=== PATIENT | male | born 1940 | race Caucasian/White ===

== ENCOUNTER → 2020-02-14 12:00 | Outpatient (BNVA) | payer MEDICARE, SELFPAY | PROVIDERS: Visit Provider Specialist | DX: S82.402A Unspecified fracture of shaft of left fibula, initial encounter for closed fracture (principal) | CPT/HCPCS: 73590; 73610; L4361 ==

== ENCOUNTER 2020-02-14 13:05 | Outpatient (CLI) | payer MEDICARE, SELFPAY | END 2020-02-14 13:06 | disposition home or self-care (01) | LOC: SPT 13:06 | PROVIDERS: Visit Provider Specialist | DX: Z46.89 Encounter for fitting and adjustment of other specified devices (principal); S82.292D Other fracture of shaft of left tibia, subsequent encounter for closed fracture with routine healing; X58.XXXD Exposure to other specified factors, subsequent encounter | CPT/HCPCS: L4361 ==

== ENCOUNTER 2020-02-23 10:32 | Outpatient (CLI) | payer MEDICARE, SELFPAY ==
--- NOTE | 2020-02-23 10:41 | MR_ITS ---
WS: [id number] MRI LEFT ANKLE NONCONTRAST TECHNIQUE: Sagittal proton density, sagittal STIR, axial proton density, axial T1, axial T2 fat sat, coronal proton density, coronal proton density fat sat, coronal T2 fat sat. CLINICAL INFORMATION: left tibia shaft fracture COMPARISON: Radiograph February 14, 2020 FINDINGS: Cortical irregularity involving the distal tibia along the syndesmosis with callus formation along th e fibula seen on the recent radiograph. No significant abnormal bone marrow signal in this area on th e MRI. No significant edema along the syndesmosis. Radiographic findings likely due to prior healed t rauma Medial and lateral malleolus appear normal. No acute appearing avulsion fractures. Tiny amount of hamlet ma along the dorsal aspect medial malleolus. Small amount of cortical and subcortical edema along the posterior malleolus. Associated soft tissue edema. Findings consistent with bony contusion. No displ aced fractures. Normal talar dome. Calcaneus is normal. Normal talocalcaneal junction. Diffuse subcutaneous soft tissue edema. Fatty atrophy of the visualized musculature lower leg,ankle a nd hindfoot. Split tear involving the peroneus brevis. Small amount of tenosynovitis along the common peroneal tendon sheath. Small amount of tendinosis involving the distal Achilles. Plantar calcaneal spurring. Small amount of tenosynovitis along the tibialis posterior and flexor hallucis longus. Norm al extensor compartment tendons. Normal navicular. Normal cuneiforms. MR/MR ankle LT wo con* [id number] IMPRESSION: 1. No acute fractures. Small ankle effusion. 2. Cortical irregularity involving the distal tibia and adjacent fibula at the syndesmosis demonstrates no significant edema and is likely chronic. 3. Tiny amount of edema involving the posterior malleolus and undersurface of the dorsal medial malleolus likely due to contusion. 4. Diffuse soft tissue edema lower leg and ankle with diffuse fatty muscular a trophy. 5. Split tear involving the peroneus brevis. 6. Small amount of tendinosis in the distal Achilles. 7. Tenosynovitis involving the tibialis posterior and flexor hallucis longus. 8. Plantar calcaneal spurring.
== END 2020-02-23 10:33 | disposition home or self-care (01) ==
LOC: RADWPI 10:36
PROVIDERS: Visit Provider Specialist
DX: S82.202A Unspecified fracture of shaft of left tibia, initial encounter for closed fracture (principal); X58.XXXA Exposure to other specified factors, initial encounter; M25.472 Effusion, left ankle; R60.9 Edema, unspecified; M62.572 Muscle wasting and atrophy, not elsewhere classified, left ankle and foot; M76.62 Achilles tendinitis, left leg; M65.872 Other synovitis and tenosynovitis, left ankle and foot; M77.32 Calcaneal spur, left foot
CPT/HCPCS: 73721

== ENCOUNTER 2021-03-13 09:46 | Outpatient (CLI) | payer MEDICARE, SELFPAY ==
[2021-03-13 12:24] LABS: Basophils # 0.1 10^3/uL (0.0-0.1); Basophils % 0.8 %; Eosinophils # 0.2 10^3/uL (0.0-0.8); Eosinophils % 2.4 %; Hematocrit 34.3 % (42.0-52.0); Hemoglobin 11.4 g/dL (11.7-16.6); Lymphocytes # 2.4 10^3/uL (0.8-4.8); Lymphocytes % 31.3 %; Mean Corpuscular HGB Conc 33.2 g/dL (30.0-36.0); Mean Corpuscular Hemoglobin 32.9 pg (28.0-34.0); Mean Corpuscular Volume 99.1 fL (80-94); Mean Platelet Volume 10.2 fL (7.4-10.4); Monocytes # 0.9 10^3/uL (0.2-0.9); Monocytes % 11.9 %; Neutrophils # 3.87 10^3/uL (1.8-7.7); Neutrophils % 51.1 %; Nucleated Red Blood Cells % 0 %; Platelet Count 196 10^3/cmm (130-400); Red Blood Count 3.46 10^6/uL (4.1-5.3); Red Cell Distribution Width 14.6 % (12.1-15.1); White Blood Count 7.6 10^3/uL (4.0-10.0)
[2021-03-13 13:16] LABS: Erythrocyte Sedimentation Rate 108 mm/hr (0-10)
[2021-03-13 13:19] LABS: Slide Review Slide Review Perform
[2021-03-13 13:34] LABS: Alanine Aminotransferase 18 U/L (0-41); Albumin Level 4.1 g/dL (3.5-5.2); Alkaline Phosphatase 43 IU/L (40-130); Aspartate Amino Transferase 21 U/L (0-40); Blood Urea Nitrogen 23 mg/dL (8-23); Calcium 9.6 mg/dL (8.5-10.5); Carbon Dioxide 28 mmol/L (22-29); Chloride 101 mmol/L (98-107); Glucose 92 mg/dL (65-115); Osmolality Calculated 277 mOsm/kg (285-295); Sodium 132 mmol/L (136-145); Total Bilirubin 1.3 mg/dL (0.15-1.2)
[2021-03-13 13:42] LABS: Globulin 9.4 g/dL (1.3-4.6); Total Protein 13.5 g/dL (6.6-8.7)
--- NOTE | 2021-03-13 15:00 | ONC CON_ITS ---
Dr. Arrieta New Patient Note Patient: Jono Villanueva Unit #: [id number]: 1940 Dicatated By: Nolan Arrieta M.D.Date of Visit: March 13, 2021 Onc MED New Patient/Consult Referring Physician: Dr. Damian Gill M.D. Chief Complaint: Multiple myeloma. History of Present Illness: This is a 79-year-old man with lytic bone lesions and an associated M protein on serum protein electrophoresis, consistent with myeloma. He has been in good general health. He has really not had any ongoing medical illnesses. In January of this year he had suffered a traumatic left fibular shaft fracture, but that was able to be managed conservatively. On 02/19/2021 he was seen in the emergency room at [facility] in [place]. He was complaining of chest pain. His CT pulmonary angiogram showed no evidence of pulmonary embolism or other acute pulmonary pathology. Osteolytic lesions, though, were noted in the T10 and T12 vertebral bodies, concerning for metastatic disease or multiple myeloma. His CBC at that time showed hemoglobin slightly low at 12.2 g with white blood cell count 8800 and platelet count 167,000. Comprehensive metabolic profile showed borderline renal function with BUN 23 and creatinine 1.10 mg/dL. The total protein was significantly elevated at 11.7 g/dL with albumin 4.2 g/dL and calculated serum globulin 7.5 g/dL. The serum calcium was normal at 9.3 mg/dL. His further laboratory studies on 02/22/2021 included protein electrophoresis which showed a monoclonal protein in the gamma region quantitating at 5.47 g/dL. The free light chain assay showed elevated kappa light chain at 789.00 mg/L with lambda light chain 10.34 mg/L and elevated kappa/lambda ratio at 76.31. His 24-hour urine protein electrophoresis showed 3 kappa monoclonal protein bands, the 1st quantitating at 303 mg, the 2nd quantitating at 349 mg, and the 3rd quantitating it 148 mg. Staging PET/CT on 03/02/2021 showed multiple FDG positive lytic osseous lesions which included lesions at C5, left scapula, sternum, left ribs 2-4, right ribs 4-5, the T10, T12, and L1 vertebral bodies, and the right iliac bone. The index T10 lesion measured 2.9 x 2.2 cm with SUV 4.0. There were no soft tissue lesions identified. He says he feels pretty good, though he does have significant pain in his lower back and he still has some pain in the chest area when he coughs. He has had hydrocodone/APAP available at home since his ankle fracture, but he has not been taking it. His activity is limited due to the pain. His ECOG score is 2. His appetite has not been as good and his weight is down about 10 pounds. He does not have fever or night sweats. He says his throat has been a little bit irritated with the cough and he does have some shortness of breath. He has not had any angina type pain. He has not been having nausea, but he does have early satiety. He has no other GI complaints. Bowel function thus far remains adequate. He says his bladder works overtime. He does not complain of headache. He sometimes has dizziness. He has numbness/tingling, more so in his hands than feet, but that has been going on a long time. Past Medical History: He has had no prior ongoing medical illnesses. Past Surgical History: His only surgery was a left inguinal hernia repair. Medications: He has hydrocodone/APAP available at home, but he has not been taking it. Allergies: No Known Allergies. Social History: Mr. Villanueva is . He is a non-smoker. He does not drink alcohol. Family History: Both parents are , cause unknown to the patient. He had 4 sisters and 1 brother. One sister of ovarian cancer. Two of his siblings are still living. Review Of Symptoms: Constitutional - He generally been feeling good. He has a lot energy but has activity restrictions due to his back pain. He is able to do some very light chores. His appetite is good but he has early satiety. His weight is down about 10 pounds from normal. No fever, night sweats, or hot flashes. ECOG score is 2, Eyes - No change in vision, ENMT - He has hearing loss.No tinnitus. No sinus congestion/drainage. No mouth sores. No sore throat or difficulty swallowing, Hematologic/Lymphatic - No abnormal bruising or bleeding, Respiratory - He recently started having some shortness of breath. He has chest pain with coughing that radiates into his back. No hemoptysis, Cardiovascular - No angina pain. No palpitations, Gastrointestinal - No nausea or vomiting, but he has early satiety. No heartburn or acid reflux. No diarrhea or constipation. No blood in the stool or black stools, Genitourinary (M) - No dysuria or hematuria. He has urinary frequency. No urgency or incontinence, Musculoskeletal - He has pain in his lower back, getting worse over the past 3 months. He suffered a left fibula shaft fracture in January. It has been managed conservatively, Integumentary - No skin eruption, Neurologic - No headache. He has dizziness. He has numbness and tingling in his hands. No other focal neurologic symptoms, Psychiatric - No anxiety or depression. No insomnia. Vital Signs: Performed on March 13, 2021 10:48: 5, 24.42, 1.86 sq.m, 68 in, 96 %, 95 /min, 18 /min, 143/75 mm(hg) (HIGH), 97.8 F (LOW), and 160.6 lbs (HIGH). Physical Examination: Constitutional - He appears elderly and somewhat frail, Eyes - Sclerae nonicteric. Conjunctivae clear, ENMT - No lesions noted in the oral cavity, Neck - No mass or thyromegaly, Hematologic/Lymphatic - No cervical, clavicular, or axillary adenopathy, Respiratory - Lungs are clear with slightly diminished air movement bilaterally, Cardiovascular - Heart rhythm is regular. There is no murmur, gallop, or rub noted, Abdomen - Soft and non-tender. Liver and spleen are not enlarged. There is no abdominal mass or ascites noted and there is no inguinal adenopathy, Back/Spine - There is no significant bony tenderness in the spine or ribs, Extremities - No edema. Pedal pulses are palpable bilaterally, Integumentary - No rashes. No suspicious skin lesions noted, Neurologic - No focal neurologic deficits noted. Problem List: 1. Patient with evidence of symptomatic myeloma by imaging and by protein electrophoresis. He has associated lytic bone involvement. 2. He has had no other significant ongoing medical illnesses. Problems Addressed with this Encounter and Plan: Patient with evidence of symptomatic myeloma by imaging and by protein electrophoresis. He has associated lytic bone involvement documented by PET/CT. The laboratory findings and the findings on the imaging studies were reviewed with the patient and his daughter. I also reviewed the images with him, and we discussed the clinical implications. He clearly has symptomatic myeloma. We discussed the fact that this is a malignancy that originates in the bone marrow and that it is a treatable, though not curable malignancy. At this point I do want to repeat some laboratory studies including a CBC and comprehensive metabolic profile and I will repeat his protein electrophoresis with an immunofixation study. I also will check his quantitative immunoglobulin levels. I am going to schedule him for bone marrow aspiration/biopsy, and I will begin the process of getting him approved for induction therapy with Velcade/Revlimid/dexamethasone. Signed By: Nolan Arrieta M.D. <<Signature on File>>
[2021-03-13 18:42] LABS: Immunoglobulin IGA 50 mg/dL (70-400); Immunoglobulin IGM 25 mg/dL (40-230)
[2021-03-13 18:58] LABS: Immunoglobulin IGG 7224 mg/dL (700-1600)
[2021-03-14 13:53] LABS: PROTEIN, TOTAL 14.1 g/dL (6.1-8.1)
[2021-03-14 14:23] LABS: KAPPA LIGHT CHAIN, FREE, SERUM 1718.7 mg/L (3.3-19.4); LAMBDA LIGHT CHAIN, FREE, SERU 11.7 mg/L (5.7-26.3)
[2021-03-14 15:34] LABS: ALBUMIN 5.5 g/dL (3.8-4.8); ALPHA 1 GLOBULIN 0.4 g/dL (0.2-0.3); ALPHA 2 GLOBULIN 1.1 g/dL (0.5-0.9); BETA 1 GLOBULIN 0.5 g/dL (0.4-0.6); BETA 2 GLOBULIN 0.3 g/dL (0.2-0.5); GAMMA GLOBULIN 6.4 g/dL (0.8-1.7)
== END 2021-03-13 09:47 | disposition home or self-care (01) ==
PROVIDERS: PCP Family Medicine; Visit Provider Internal Medicine Medical Oncology
DX: C90.00 Multiple myeloma not having achieved remission (principal); C79.51 Secondary malignant neoplasm of bone; Z79.899 Other long term (current) drug therapy
CPT/HCPCS: 36415; 80053; 82784; 83883; 84155; 84165; 85025; 85651; 99205

== ENCOUNTER → 2021-03-15 09:48 | Outpatient (BNVA) | payer MEDICARE, SELFPAY | PROVIDERS: PCP Family Medicine; Visit Provider Internal Medicine Medical Oncology | DX: Z01.812 Encounter for preprocedural laboratory examination (principal); Z20.822 Contact with and (suspected) exposure to COVID-19 | CPT/HCPCS: 87635 ==

== ENCOUNTER 2021-03-19 09:04 | Day surgery (SDC) | payer MEDICARE, SELFPAY ==
[2021-03-15 13:05] VITALS: BMI 25.8
[2021-03-19 09:54] VITALS: BP 180/98; PULSE 80; RESP 18; TEMP 36.4; O2SAT 99
[2021-03-19] MEDS: sodium chloride 0.9% 1,000 ML 30 ML IV (10:04)
[2021-03-19 10:19] LABS: Hemoglobin 12.5 g/dL (11.7-16.6); Mean Corpuscular HGB Conc 34.7 g/dL (30.0-36.0); Mean Corpuscular Hemoglobin 33.6 pg (28.0-34.0); Mean Corpuscular Volume 96.8 fL (80-94); Mean Platelet Volume 10.6 fL (7.4-10.4); Platelet Count 201 10^3/cmm (130-400); Red Blood Count 3.72 10^6/uL (4.1-5.3); Red Cell Distribution Width 14.1 % (12.1-15.1); White Blood Count 9.9 10^3/uL (4.0-10.0)
[2021-03-19 11:21] LABS: Slide Review Slide Review Perform
[2021-03-19 11:38] LABS: Absolute Segmented Neutrophil 6.9 10/cmm (1.6-7.1); Eosinophils 0 %; Lymphocytes 19 %; Lymphocytes Absolute 2.8 10^3/cmm (1.2-3.4); Monocytes Absolute 0.2 10^3/cmm (0.1-0.6); Segmented Neutrophils 70 %; Total Cells Counted 100 (0-100)
[2021-03-19 11:39] LABS: Absolute Neutrophil 6.9 10^3/cmm (1.4-6.5); Platelet Estimate Normal (Normal)
--- NOTE | 2021-03-19 15:00 | ANES.PREANE2 ---
Pre-Anesthetic Assessment Pre-Anesthetic Assessment: Height/Weight: Height 1.73 m Weight 77.111 kg Temp Pulse Resp BP Pulse Ox 97.5 F L 80 18 180/98 99 03/19/21 09:54 03/19/21 09:54 03/19/21 09:54 03/19/21 09:54 03/19/21 09:54 Proposed Procedure: Operation Date: 03/19/21 10:30 Proposed Procedures p Bone Marrow Biospy With Aspiration C90.00(Not Applicable) - Racheal Ngo MD Familial anesthetic complications: none Was Beta Deion taken within 24 hours: N/A Was Clonidine taken within 24 hours: N/A Last intake: Intake Last Liquid Date 03/18/21 Last Liquid Time 22:00 Last Solid Date 03/18/21 Last Solid Time 22:00 Social: Social History: No alcohol and No tobacco Exam: Pre-Anes Outpt Exam: alert, oriented x 3, clear to auscultation bilaterally and regular rate & rhythm Airway: Cervical ROM: WNL MP: 3 Dentition: Full Anesthetic Plan: ASA status: 2 Anesthesia: MAC Risk of > 500 ml blood loss (7ml/kg in children): No Other Pertinent Information: lytic bone lesions seen on imaging Meds/Allergies Current Medications: Current Medications Generic Name Dose Route Start Last Admin Trade Name Freq PRN Reason Stop Dose Admin Sodium Chloride 1,000 mls @ 30 ml s/hr 03/19/21 09:45 03/19/21 10:04 Sodium Chloride 0.9% IV 03/20/21 09:44 30 mls/hr .Q24H ELAINA Administration PFSH Anesthesia PFSH: Social History Smoking and tobacco status: never smoked Alcohol intake: never Data Anesthesia CBC & Chem 7: 03/19/21 10:04 Other Labs: Laboratory Results - last 48 hr 03/19/21 10:04 WBC 9.9 RBC 3.72 L Hgb 12.5 Hct 36.0 L MCV 96.8 H MCH 33.6 MCHC 34.7 RDW 14.1 Plt Count 201 MPV 10.6 H Lymph % (Auto) Not Reportable [place] % (Auto) Not Reportable Lymph # (Auto) Not Reportable [place] # (Auto) Not Reportable Total Counted 100 Atypical Lymphs % 9.0 H Absolute Neutrophils 6.9 H Segmented Neutrophils 70 Abs Segm Neuts (Man) 6.9 Band Neutrophils 0.0 Abs Band Neuts (Man) 0.0 Absolute Lymphocytes 2.8 Lymphocytes (Manual) 19 Monocytes (Manual) 2.0 Absolute Monocytes 0.2 Eosinophils (Manual) 0 Absolute Eosinophils 0.0 Basophils (Manual) 0.0 Absolute Basophils 0.0 Platelet Estimate Normal Cardiac Studies: No Data to Display
--- NOTE | 2021-03-19 15:42 | P.PCN_ITS ---
Bone Marrow Biopsy Bone Marrow Biopsy: I was consulted by [] office regarding bone marrow biopsy on [Jono Chapa]. Briefly, the patient is a [80] year old male [] with [monoclonal gammopathy/myeloma]. In the Outpatient Services Department, with nursing staff and laboratory technologists in attendance, the procedure was discussed with the patient. Appropriate consent form had been signed. Appropriate alternatives, benefits and risks of procedure were discussed with the patient and his nurse. he was pre-operatively assessed with a history and physical by myself and cleared for the biopsy procedure. The patient did request IV sedation and that was provided by the Anesthesia Department. Under aseptic condition right posterior pelvic area was cleaned and prepped, local anesthesia was given, about 15 cc of bone marrow aspirate and core biopsy was obtained, patient tolerated procedure well, specimen was sent for routine histo path, flow cytometry/cytogenetics, myeloma panel, postprocedure nursing instructions were given. Thank you for allowing me to participate in this patient's care and diagnosis. Coding Level of Care Code Acute Document Control Assistant for Marisela Magaña
[2021-03-19 15:43] VITALS: BP 132/81; PULSE 66; RESP 16; TEMP 37.2; O2SAT 95
--- NOTE | 2021-03-19 15:44 | ANE.PACU2 ---
Inpatient post-anesthesia follow up: Airway intact: Yes Vital signs: Temperature 97.5 F Pulse Rate 80 Respiratory Rate 18 Blood Pressure 180/98 Pulse Oximetry 99 Oxygen Delivery Me thod Room Air Oxygen Flow Rate Fraction of Inspir ed Oxygen Hydration adequate: Yes Nausea and vomiting: No Pain level: 1 Mental status: Baseline
[2021-03-19 15:57] VITALS: BP 154/83; PULSE 67; RESP 18; O2SAT 97
[2021-04-02 05:37] LABS: Miscellaneous Test See Scanned Lab Rpt
== END 2021-03-19 16:14 | disposition home or self-care (01) ==
PROVIDERS: Internal Medicine Medical Oncology; PCP Family Medicine; Visit Provider Internal Medicine Hematology & Oncology
PROC: 07DT3ZX Extraction of Bone Marrow, Percutaneous Approach, Diagnostic (ICD-10-PCS; CPT 38222; principal; 2021-03-19 10:30)
DX: C90.00 Multiple myeloma not having achieved remission (principal); D47.2 Monoclonal gammopathy
CPT/HCPCS: 36415; 38222; 85007; 85025; 88237; 88264; 88305; 88374; 96360; 96361; J2704; J7030

== ENCOUNTER 2021-04-01 12:24 | Outpatient (CLI) | payer MEDICARE, SELFPAY ==
[2021-04-01 13:23] LABS: Basophils % 0.6 %; Eosinophils # 0.3 10^3/uL (0.0-0.8); Hematocrit 31.3 % (42.0-52.0); Hemoglobin 10.7 g/dL (11.7-16.6); Lymphocytes # 1.9 10^3/uL (0.8-4.8); Lymphocytes % 28.4 %; Mean Corpuscular HGB Conc 34.2 g/dL (30.0-36.0); Mean Corpuscular Hemoglobin 32.8 pg (28.0-34.0); Mean Platelet Volume 10.1 fL (7.4-10.4); Monocytes # 0.6 10^3/uL (0.2-0.9); Monocytes % 9.3 %; Neutrophils # 3.81 10^3/uL (1.8-7.7); Nucleated Red Blood Cells % 0 %; Platelet Count 199 10^3/cmm (130-400); Red Blood Count 3.26 10^6/uL (4.1-5.3); Red Cell Distribution Width 14.7 % (12.1-15.1); White Blood Count 6.7 10^3/uL (4.0-10.0)
[2021-04-01 13:39] LABS: Alanine Aminotransferase 27 U/L (0-41); Alkaline Phosphatase 52 IU/L (40-130); Anion Gap 10.2 (5-19); Aspartate Amino Transferase 22 U/L (0-40); Blood Urea Nitrogen 23 mg/dL (8-23); Calcium 8.6 mg/dL (8.5-10.5); Carbon Dioxide 24 mmol/L (22-29); Chloride 103 mmol/L (98-107); Globulin 6.6 g/dL (1.3-4.6); Glucose 89 mg/dL (65-115); Osmolality Calculated 279 mOsm/kg (285-295); Potassium 4.2 mmol/L (3.5-5.1); Sodium 133 mmol/L (136-145); Total Bilirubin 0.8 mg/dL (0.15-1.2); Total Protein 10.6 g/dL (6.6-8.7)
[2021-04-01 13:44] LABS: Slide Review Slide Review Perform
[2021-04-01] MEDS: dexamethasone 4 mg Tablet 40 MG PO (15:26)
[2021-04-01] MEDS: ondansetron 4 MG Tablet PO ×2 (15:26)
--- NOTE | 2021-04-14 12:09 | ONC FU_ITS ---
[facility] Patient Note Patient: Jono Vieyra Unit #: [id number]: [id number] Dictated By: Carla SrinivasanDate of Visit: Apr 01, 2021 Onc MED Follow-Up/Prog Note Chief Complaint: Multiple myeloma. History of Present Illness: Mr Vieyra a 79-year-old man with lytic bone lesions and an associated M protein on serum protein electrophoresis, consistent with myeloma. He has been in good general health. He is really not had any ongoing medical illnesses. In January of this year he had suffered a traumatic left fibular shaft fracture, but that was able to be managed conservatively. On 02/19/2021 he was seen in the emergency room at [facility] in [place]. He was complaining of chest pain. His CT pulmonary angiogram showed no evidence of pulmonary embolism or other acute pulmonary pathology. Osteolytic lesions, though, were noted in the T10 and T12 vertebral bodies, concerning for metastatic disease or multiple myeloma. His CBC at that time showed hemoglobin slightly low at 12.2 g with white blood cell count 8800 and platelet count 167,000. Comprehensive metabolic profile showed borderline renal function with BUN 23 and creatinine 1.10 mg/dL. The total protein was significantly elevated at 11.7 g/dL with albumin 4.2 g/dL and calculated serum globulin 7.5 g/dL. The serum calcium was normal at 9.3 mg/dL. His further laboratory studies on 02/22/2021 included protein electrophoresis which showed a monoclonal protein in the gamma region quantitating at 5.47 g/dL. The free light chain assay showed elevated kappa light chain at 789.00 mg/L with lambda light chain 10.34 mg/L and elevated kappa/lambda ratio at 76.31. His 24-hour urine protein electrophoresis showed 3 kappa monoclonal protein bands, the 1st quantitating at 303 mg, the 2nd quantitating at 349 mg, and the 3rd quantitating it 148 mg. Staging PET/CT on 03/02/2021 showed multiple FDG positive lytic osseous lesions which included lesions at C5, left scapula, sternum, left ribs 2-4, right ribs 4-5, the T10, T12, and L1 vertebral bodies, and the right iliac bone. The index T10 lesion measured 2.9 x 2.2 cm with SUV 4.0. There were no soft tissue lesions identified. Mr. Vieyra had serum protein electrophoresis on 03/13/2021 which reported a total protein of 14.1 and an abnormal protein was reported at 6.0 the serum immunofixation reported a kappa light chain at 1718.7, lambda light chain 11.7 and kappa/lambda ratio 146.90 his IgG on 03/13/2021 was 7224, IgM 25 and IgA 55. Bone marrow aspiration biopsy from 03/20/2021 reported peripheral blood smear results from mild normochromic normocytic anemia with minimal anisocytosis and polychromasia; minimal rouleaux formation noted: No increase in teardrop cells, schistocytes, nucleated red blood cells. There were normal white blood cells with a few circulating plasma cells identified space (approximately 5% of nucleated cells); no circulating blasts are seen normal platelet count and morphologies. The bone marrow biopsy and aspirate reported approximately 60% to 80 bone marrow involvement by plasma cell neoplasm; decreased background trilineage hematopoiesis is present; no overt dyspoietic or megaloblastic changes are seen. Dr. Arrieta has disussed with Mr. Vieyra current labs, performance status, treatment plan and options as well as post treatment follow-up and plan of care. Mr. Vieyra is here today to begin his first cycle of induction therapy with Velcade/Revlimid/dexamethasone. Mr. Vieyra states overall he continues to feel about the same. He certainly feels no worse. He denies any fever or chills. He denies any mouth sores, sore throat or difficulty swallowing.He states his appetite is fair. His energy is marginal. He denies any nausea or vomiting. He denies any diarrhea or constipation. He has some chronic neuropathy but that is currently stable. His ECOG is 2. Past Medical History: Mr. Vieyra's medical history is unremarkable. Past Surgical History: Left inguinal hernia repair Bone marrow aspiration and biopsy0 [facility] in 2020 Allergies: No Known Allergies. Medications: Adult Aspirin EC Low Strength (81 mg) Tablet, enteric coated Oral daily Family History: Mr. Vieyra's mother is . Mr. Vieyra's father is . Mr. Vieyra has 1 sister who is : ovarian cancer. Both parents are , cause unknown to the patient. He had 4 sisters and 1 brother. One sister of ovarian cancer. Two of his siblings are still living. Social History: Mr. Vieyra is single. Mr. Vieyra has never smoked. He has no history of drinking. He is a non-smoker. He does not drink alcohol. Review Of Symptoms: <See Above> Vital Signs: Performed on Apr 01, 2021 14:11 Height - 68.00 in Weight - 157.8 lbs (LOW) BSA - 1.85 sq.m BMI - 23.99 Temperature - 97.5 F (LOW) Pulse - 76 /min Respiration - 18 /min BP - 143/83 mm(hg) (HIGH) O2 Sat - 97 % Pain - 5 Fatigue - 0,2 - Ambulatory/capable of all self-care, unable to perform any work activities. Up and about more than 50% of waking hours. (ECOG) Physical Examination: Constitutional Alert, oriented, no acute distress. Skin pink, warm and dry. Head Normocephalic; atraumatic. Eyes Conjunctivae and sclerae are clear and without icterus. Pupils are reactive and equal. Neck Supple without masses or thyromegaly. No jugular venous distension. Hematologic/Lymphatic No petechiae or purpura. No tender or palpable lymph nodes in the cervical or supraclavicular areas. Respiratory Lungs are clear to auscultation without rhonchi or wheezing. Cardiovascular Regular rate and rhythm of heart without murmurs,clicks, gallops or rubs. Back/Spine Non-tender to palpation. Extremities No visible deformities, no cyanosis, clubbing or edema. Musculoskeletal No tenderness or swelling, normal range of motion without obvious weakness. Integumentary No rashes or lesions. Neurologic No sensory or motor deficits, normal cerebellar function, normal gait. Psychiatric Alert and oriented times three. Coherent speech. Verbalizes understanding of our discussions today. Laboratory:Test performed on Apr 01, 2021 13:00 Sodium 133 mmol/L Potassium 4.2 mmol/L Chloride 103 mmol/L CO2 24 mmol/L Anion Gap 10.2 BUN 23 mg/dL Creatinine 1.0 mg/dL Cr Clearance (Est) 62.7300 mL/min Glucose 89 mg/dL Osmolality - Calculated 279 mOsm/kg Calcium 8.6 mg/dL Protein, Total 10.6 g/dL Albumin 4.0 g/dL Globulin 6.6 g/dL Bilirubin, Total 0.8 mg/dL ALT (SGPT) 27 U/L AST (SGOT) 22 U/L Alkaline Phosphatase 52 IU/L WBC 6.7 10 3/uL RBC 3.26 10 6/uL HGB 10.7 g/dL HCT 31.3 % MCV 96.0 fL MCH 32.8 pg MCHC 34.2 g/dL RDW 14.7 % Platelet Count 199 10 3/cmm MPV 10.1 fL Neutrophils 3.81 10 3/uL Lymphocytes 1.9 10 3/uL Monocytes 0.6 10 3/uL Eosinophils 0.3 10 3/uL Basophils 0.0 10 3/uL Neutrophil % 57.0 % Lymphocyte % 28.4 % Monocyte % 9.3 % Eosinophil % 4.0 % Basophils % 0.6 % NRBC % 0 % CBC Slide Review Slide Review Perform SLIDE REVIEW AGREES WITH AUTOMATED RESULTS Test performed on March 13, 2021 11:47 ESR (Sed Rate) 108 mm/hr IgG 7224 mg/dL [place] Free Light Chains 1718.7 mg/L Lambda Free Light Chains 11.7 mg/L IgA 50 mg/dL [place]/Lambda Free Ratio 146.90 IgM 25 mg/dL Impression: 1. Patient with evidence of symptomatic myeloma by imaging and by protein electrophoresis. He has associated lytic bone involvement. 2. He has had no other significant ongoing medical illnesses. Plan/Problems Addressed at this Visit: Mr. Vieyra had serum protein electrophoresis on 03/13/2021 which reported a total protein of 14.1 and an abnormal protein was reported at 6.0 the serum immunofixation reported a kappa light chain at 1718.7, lambda light chain 11.7 and kappa/lambda ratio 146.90 his IgG on 03/13/2021 was 7224, IgM 25 and IgA 55. Bone marrow aspiration biopsy from 03/20/2021 reported peripheral blood smear results from mild normochromic normocytic anemia with minimal anisocytosis and polychromasia; minimal rouleaux formation noted: No increase in teardrop cells, schistocytes, nucleated red blood cells. There were normal white blood cells with a few circulating plasma cells identified space (approximately 5% of nucleated cells); no circulating blasts are seen normal platelet count and morphologies. The bone marrow biopsy and aspirate reported approximately 60% to 80 bone marrow involvement by plasma cell neoplasm; decreased background trilineage hematopoiesis is present; no overt dyspoietic or megaloblastic changes are seen. A. Proceed with cycle 1 day 1 induction therapy Velcade/Revlimid/dexamethasone. B. Velcade is day 1, 8 and 15 subcutaneous or IV. This is a 28-day cycle. C. Revlimid is 10 mg oral day 1 through 21. D. Dexamethasone is 40 mg weekly???we will plan on days of Velcade???day 1 8 and 15. He will need to do day 22 at home. E. He may utilize Compazine and Ativan as needed for antiemetics at home. F. Today's labs reviewed in detail and discussed with Mr. Chapa and a copy was given to him. WBC 6. 7, hemoglobin 10.7, platelets 109,000, ANC is 3810. Potassium 4.2 creatinine 1.0, random glucose 89 calcium 86 LFTs are normal. His IgG from March 13, 2021 is 7224. His kappa free light chain is 1718.7. His sed rate from March 13, 2021 was 108. G. AVOID GRAPEFRUIT PRODUCTS WITH CURRENT TREATMENT PLAN 2. Follow-up plan A. Mr. iVeyra will return in 1 week for day 8 Velcade. We will also reassess the oral Revlimid at that time. He is currently at 10 mg daily. We will request a CBC CMP for that visit as well. B. We will plan for weekly blood counts which may be done the day before his visit or the day of which ever is most convenient for him. He will need to repeat his myeloma labs 1 month after starting his treatment obviously which is today. C. He will have weekly follow-up visits with CBC CMP on the days of treatment. We will plan to do dexamethasone orally on those days if not we can do it here in the clinic. D. Mr. Vieyra was instructed to contact us in interim should questions or problems arise. 3. Patient education regarding treatment plan A. The patient and family were informed of chemotherapy plan and specific drugs were discussed. We also discussed how chemotherapy works and identified common side effects including alopecia; myelosuppression-including neutropenia, anemia, bleeding or bruising; skin changes; mouth sores; drug hypersensitivity/allergic reactions or anaphylaxis and extravasation. They have also been informed how to contact the clinic with side effects or symptoms, including but not limited to fever greater than 100.4 degrees, chills, sore throat, bleeding or bruising that is not explained or mouth sores, cough, nasal discharge, diarrhea, constipation, nausea and/or vomiting not relieved with medications on hand at home, as well as any other concern or question they may have. Our hours are 8:00 a.m. to 4:30 p.m. on Thursday through and 8-12:00 on Thursday. However, someone is relationship manager 24 hours per day and they have been advised to contact the [facility] at if it is after hours. We have also discussed potential long-term side effects of chemotherapy including secondary cancers, infertility, pulmonary complications, cardiac complications, and again peripheral neuropathy. We have discussed that they certainly need to let us know before taking any antioxidants or herbal or further dietary supplements, as we are unsure of how these agents react with chemotherapy and we request that they avoid these products for now. They were informed that it is okay to take multivitamins at normal doses. They verbally state that they understand to take all medications as directed by their healthcare provider unless otherwise indicated. They also verbalized understanding to leave the pressure dressing on the intravenous administration site for at least two hours after treatment. Instructions for oral care with baking soda and salt water rinses as well as a guide for use of [id number] medication were provided with the treatment plan. They have been given a written patient treatment plan, of which a copy is in the chart, as well as specific drug information. They have no questions and verbalized understanding and are willing to proceed with chemotherapy at this time. Total time spent on Mr. Elliott visit today included review of records prior to visit, discussion of treatment plan, side effect identification and management as well as answering questions and post visit documentation was 65 minutes. Signed By: Carla Srinivasan-, [facility] Nolan Arrieta MD <<Signature on File>>
== END 2021-04-01 12:25 | disposition home or self-care (01) ==
PROVIDERS: PCP Family Medicine; Visit Provider Nurse Practitioner
DX: Z51.11 Encounter for antineoplastic chemotherapy (principal); C90.00 Multiple myeloma not having achieved remission; Z79.899 Other long term (current) drug therapy
CPT/HCPCS: 36415; 80053; 85025; 96401; 99215; J8540; J9041; Q0162

== ENCOUNTER 2021-04-24 05:46 | Outpatient (RCR) | payer MEDICARE, SELFPAY ==
[2021-04-08 13:08] LABS: Basophils % 0.5 %; Eosinophils # 0.6 10^3/uL (0.0-0.8); Eosinophils % 11.7 %; Hematocrit 29.8 % (42.0-52.0); Hemoglobin 10.5 g/dL (11.7-16.6); Lymphocytes # 1.1 10^3/uL (0.8-4.8); Lymphocytes % 20.8 %; Mean Corpuscular HGB Conc 35.2 g/dL (30.0-36.0); Mean Corpuscular Hemoglobin 33.5 pg (28.0-34.0); Mean Corpuscular Volume 95.2 fL (80-94); Monocytes # 0.7 10^3/uL (0.2-0.9); Monocytes % 13.3 %; Neutrophils # 2.86 10^3/uL (1.8-7.7); Neutrophils % 52.1 %; Nucleated Red Blood Cells % 0 %; Platelet Count 189 10^3/cmm (130-400); Red Blood Count 3.13 10^6/uL (4.1-5.3); Red Cell Distribution Width 15.1 % (12.1-15.1); White Blood Count 5.5 10^3/uL (4.0-10.0)
[2021-04-08 13:46] LABS: Alanine Aminotransferase 20 U/L (0-41); Albumin Level 4.2 g/dL (3.5-5.2); Alkaline Phosphatase 67 IU/L (40-130); Aspartate Amino Transferase 15 U/L (0-40); Blood Urea Nitrogen 23 mg/dL (8-23); Calcium 8.7 mg/dL (8.5-10.5); Carbon Dioxide 19 mmol/L (22-29); Chloride 103 mmol/L (98-107); Globulin 4.2 g/dL (1.3-4.6); Glucose 93 mg/dL (65-115); Osmolality Calculated 277 mOsm/kg (285-295); Sodium 132 mmol/L (136-145); Total Bilirubin 0.7 mg/dL (0.15-1.2); Total Protein 8.4 g/dL (6.6-8.7)
[2021-04-08] MEDS: dexamethasone 4 mg Tablet 40 MG PO (14:20)
[2021-04-08] MEDS: ondansetron 4 MG Tablet 8 MG PO (14:20)
[2021-04-17 12:46] LABS: Basophils # 0.1 10^3/uL (0.0-0.1); Basophils % 0.9 %; Eosinophils # 0.2 10^3/uL (0.0-0.8); Eosinophils % 3.4 %; Hematocrit 31.5 % (42.0-52.0); Hemoglobin 10.7 g/dL (11.7-16.6); Lymphocytes # 0.9 10^3/uL (0.8-4.8); Lymphocytes % 13.7 %; Mean Corpuscular Hemoglobin 33.5 pg (28.0-34.0); Mean Corpuscular Volume 98.7 fL (80-94); Monocytes # 1.2 10^3/uL (0.2-0.9); Neutrophils # 4.36 10^3/uL (1.8-7.7); Neutrophils % 63.7 %; Nucleated Red Blood Cells % 0 %; Platelet Count 269 10^3/cmm (130-400); Red Blood Count 3.19 10^6/uL (4.1-5.3); Red Cell Distribution Width 15.7 % (12.1-15.1); White Blood Count 6.8 10^3/uL (4.0-10.0)
[2021-04-17 13:07] LABS: Alanine Aminotransferase 23 U/L (0-41); Albumin Level 4.1 g/dL (3.5-5.2); Alkaline Phosphatase 109 IU/L (40-130); Aspartate Amino Transferase 19 U/L (0-40); Blood Urea Nitrogen 15 mg/dL (8-23); Calcium 8.8 mg/dL (8.5-10.5); Carbon Dioxide 23 mmol/L (22-29); Chloride 103 mmol/L (98-107); Globulin 3.2 g/dL (1.3-4.6); Glucose 86 mg/dL (65-115); Osmolality Calculated 278 mOsm/kg (285-295); Sodium 134 mmol/L (136-145); Total Bilirubin 0.4 mg/dL (0.15-1.2); Total Protein 7.3 g/dL (6.6-8.7)
[2021-04-17] MEDS: ondansetron 4 MG Tablet 8 MG PO (15:11)
[2021-04-17] MEDS: dexamethasone 4 mg Tablet 40 MG PO (15:11)
[2021-04-24 15:44] LABS: Basophils # 0.1 10^3/uL (0.0-0.1); Basophils % 1.1 %; Eosinophils # 0.5 10^3/uL (0.0-0.8); Eosinophils % 5.7 %; Hematocrit 32.9 % (42.0-52.0); Hemoglobin 11.3 g/dL (11.7-16.6); Lymphocytes # 1.4 10^3/uL (0.8-4.8); Mean Corpuscular HGB Conc 34.3 g/dL (30.0-36.0); Mean Corpuscular Hemoglobin 33.5 pg (28.0-34.0); Mean Corpuscular Volume 97.6 fL (80-94); Mean Platelet Volume 11.3 fL (7.4-10.4); Monocytes # 1.6 10^3/uL (0.2-0.9); Monocytes % 18.5 %; Neutrophils # 4.87 10^3/uL (1.8-7.7); Neutrophils % 57.6 %; Nucleated Red Blood Cells % 0 %; Platelet Count 280 10^3/cmm (130-400); Red Blood Count 3.37 10^6/uL (4.1-5.3); Red Cell Distribution Width 16.1 % (12.1-15.1); White Blood Count 8.4 10^3/uL (4.0-10.0)
[2021-04-24 16:16] LABS: Alanine Aminotransferase 26 U/L (0-41); Albumin Level 3.9 g/dL (3.5-5.2); Alkaline Phosphatase 123 IU/L (40-130); Anion Gap 12.1 (5-19); Aspartate Amino Transferase 16 U/L (0-40); Blood Urea Nitrogen 19 mg/dL (8-23); Calcium 8.5 mg/dL (8.5-10.5); Carbon Dioxide 24 mmol/L (22-29); Chloride 106 mmol/L (98-107); Globulin 2.9 g/dL (1.3-4.6); Glucose 82 mg/dL (65-115); Osmolality Calculated 287 mOsm/kg (285-295); Potassium 4.1 mmol/L (3.5-5.1); Sodium 138 mmol/L (136-145); Total Bilirubin 0.4 mg/dL (0.15-1.2); Total Protein 6.8 g/dL (6.6-8.7)
--- NOTE | 2021-04-28 14:44 | ONC FU_ITS ---
[facility] Patient Note Patient: Jono Vieyra Unit #: [id number]: [id number] Dictated By: Carla SrinivasanDate of Visit: Apr 08, 2021 Onc MED Follow-Up/Prog Note Chief Complaint: Multiple myeloma. History of Present Illness: Mr Vieyra a 79-year-old man with lytic bone lesions and an associated M protein on serum protein electrophoresis, consistent with myeloma. He has been in good general health. He is really not had any ongoing medical illnesses. In January of this year he had suffered a traumatic left fibular shaft fracture, but that was able to be managed conservatively. On 02/19/2021 he was seen in the emergency room at [facility] in [place]. He was complaining of chest pain. His CT pulmonary angiogram showed no evidence of pulmonary embolism or other acute pulmonary pathology. Osteolytic lesions, though, were noted in the T10 and T12 vertebral bodies, concerning for metastatic disease or multiple myeloma. His CBC at that time showed hemoglobin slightly low at 12.2 g with white blood cell count 8800 and platelet count 167,000. Comprehensive metabolic profile showed borderline renal function with BUN 23 and creatinine 1.10 mg/dL. The total protein was significantly elevated at 11.7 g/dL with albumin 4.2 g/dL and calculated serum globulin 7.5 g/dL. The serum calcium was normal at 9.3 mg/dL. His further laboratory studies on 02/22/2021 included protein electrophoresis which showed a monoclonal protein in the gamma region quantitating at 5.47 g/dL. The free light chain assay showed elevated kappa light chain at 789.00 mg/L with lambda light chain 10.34 mg/L and elevated kappa/lambda ratio at 76.31. His 24-hour urine protein electrophoresis showed 3 kappa monoclonal protein bands, the 1st quantitating at 303 mg, the 2nd quantitating at 349 mg, and the 3rd quantitating it 148 mg. Staging PET/CT on 03/02/2021 showed multiple FDG positive lytic osseous lesions which included lesions at C5, left scapula, sternum, left ribs 2-4, right ribs 4-5, the T10, T12, and L1 vertebral bodies, and the right iliac bone. The index T10 lesion measured 2.9 x 2.2 cm with SUV 4.0. There were no soft tissue lesions identified. Mr. Vieyra had serum protein electrophoresis on 03/13/2021 which reported a total protein of 14.1 and an abnormal protein was reported at 6.0 the serum immunofixation reported a kappa light chain at 1718.7, lambda light chain 11.7 and kappa/lambda ratio 146.90 his IgG on 03/13/2021 was 7224, IgM 25 and IgA 55. Bone marrow aspiration biopsy from 03/20/2021 reported peripheral blood smear results from mild normochromic normocytic anemia with minimal anisocytosis and polychromasia; minimal rouleaux formation noted: No increase in teardrop cells, schistocytes, nucleated red blood cells. There were normal white blood cells with a few circulating plasma cells identified space (approximately 5% of nucleated cells); no circulating blasts are seen normal platelet count and morphologies. The bone marrow biopsy and aspirate reported approximately 60% to 80 bone marrow involvement by plasma cell neoplasm; decreased background trilineage hematopoiesis is present; no overt dyspoietic or megaloblastic changes are seen. Mr. Vieyra began his first cycle of Velcade dexamethasone Revlimid 10 mg daily on April 01, 2021. He is here today for follow-up. He is due for cycle 1 day 8 Velcade. He continues Revlimid days 1 through 21 as well. His dexamethasone is 40 mg weekly (currently taking on the days of Velcade). His treatment plan is set as a 28 day cycle. He states he has tolerated his first week pretty well. He denies any fever or chills. He denies any night sweats. He has had no mouth sores, sore throat or difficulty swallowing. He denies any nausea or vomiting. He denies any peripheral neuropathy symptoms. His appetite is fair and relatively unchanged from prior to starting treatment. He denies any new shortness of breath. He denies any orthopnea. He states he has not had chest pain or palpitations. He states his bowels are normal for him. He denies any new pain. It is noted that on his PET CT imaging from 03/02/2021 he has a T10 lesion measuring 2.9 x 2.2 cm with an SUV of 4. There were no soft tissue lesions present. He did mention some chronic back discomfort but states it is stable for him. His ECOG remains at 2 presently. Past Medical History: Mr. Vieyra's medical history is unremarkable. Past Surgical History: Left inguinal hernia repair Bone marrow aspiration and biopsy0 [facility] in 2020 Allergies: No Known Allergies. Medications: Adult Aspirin EC Low Strength (81 mg) Tablet, enteric coated Oral daily LORazepam (1 mg) Tablet Oral t.i.d. PRN Ondansetron HCl (4 mg) Tablet Oral t.i.d. PRN Family History: Mr. Vieyra's mother is . Mr. Vieyra's father is . Mr. Vieyra has 1 sister who is : ovarian cancer. Both parents are , cause unknown to the patient. He had 4 sisters and 1 brother. One sister of ovarian cancer. Two of his siblings are still living. Social History: Mr. Vieyra is single. Mr. Vieyra has never smoked. He has no history of drinking. He is a non-smoker. He does not drink alcohol. Review Of Symptoms: <See Above> Vital Signs: Performed on Apr 08, 2021 13:29 Height - 68.00 in Weight - 158.4 lbs (HIGH) BSA - 1.85 sq.m BMI - 24.08 Temperature - 98.2 F (LOW) Pulse - 101 /min (HIGH) Respiration - 18 /min BP - 149/74 mm(hg) (HIGH) O2 Sat - 98 % Pain - 8 Fatigue - 0,2 - Ambulatory/capable of all self-care, unable to perform any work activities. Up and about more than 50% of waking hours. (ECOG) Physical Examination: Constitutional Alert, oriented, no acute distress. Skin pink, warm and dry. Head Normocephalic; atraumatic. Eyes Conjunctivae and sclerae are clear and without icterus. Pupils are reactive and equal. Neck Supple without masses or thyromegaly. No jugular venous distension. Hematologic/Lymphatic No petechiae or purpura. No tender or palpable lymph nodes in the cervical or supraclavicular areas. Respiratory Lungs are clear to auscultation without rhonchi or wheezing. Cardiovascular Regular rate and rhythm of heart without murmurs,clicks, gallops or rubs. Back/Spine Non-tender to palpation. Extremities No visible deformities, no cyanosis, clubbing or edema. Musculoskeletal No tenderness or swelling, normal range of motion without obvious weakness. Integumentary No rashes or lesions. Neurologic No sensory or motor deficits, normal cerebellar function, normal gait. Psychiatric Alert and oriented times three. Coherent speech. Verbalizes understanding of our discussions today. Laboratory:Test performed on Apr 17, 2021 12:05 Sodium 134 mmol/L Potassium 4.0 mmol/L Chloride 103 mmol/L CO2 23 mmol/L Anion Gap 12.0 BUN 15 mg/dL Creatinine 0.9 mg/dL Cr Clearance (Est) 69.7000 mL/min Glucose 86 mg/dL Osmolality - Calculated 278 mOsm/kg Calcium 8.8 mg/dL Protein, Total 7.3 g/dL Albumin 4.1 g/dL Globulin 3.2 g/dL Bilirubin, Total 0.4 mg/dL ALT (SGPT) 23 U/L AST (SGOT) 19 U/L Alkaline Phosphatase 109 IU/L WBC 6.8 10 3/uL RBC 3.19 10 6/uL HGB 10.7 g/dL HCT 31.5 % MCV 98.7 fL MCH 33.5 pg MCHC 34.0 g/dL RDW 15.7 % Platelet Count 269 10 3/cmm MPV 11.0 fL Neutrophils 4.36 10 3/uL Lymphocytes 0.9 10 3/uL Monocytes 1.2 10 3/uL Eosinophils 0.2 10 3/uL Basophils 0.1 10 3/uL Neutrophil % 63.7 % Lymphocyte % 13.7 % Monocyte % 17.0 % Eosinophil % 3.4 % Basophils % 0.9 % NRBC % 0 % Test performed on Apr 01, 2021 13:00 CBC Slide Review Slide Review Perform SLIDE REVIEW AGREES WITH AUTOMATED RESULTS Test performed on March 13, 2021 11:47 ESR (Sed Rate) 108 mm/hr IgG 7224 mg/dL [place] Free Light Chains 1718.7 mg/L [place] Free [place] 11.7 mg/L IgA 50 mg/dL [place]/Lambda Free Ratio 146.90 IgM 25 mg/dL Impression: 1. Patient with evidence of symptomatic myeloma by imaging and by protein electrophoresis. He has associated lytic bone involvement. 2. He has had no other significant ongoing medical illnesses. Plan/Problems Addressed at this Visit: Mr. Vieyra had serum protein electrophoresis on 03/13/2021 which reported a total protein of 14.1 and an abnormal protein was reported at 6.0 the serum immunofixation reported a kappa light chain at 1718.7, lambda light chain 11.7 and kappa/lambda ratio 146.90 his IgG on 03/13/2021 was 7224, IgM 25 and IgA 55. Bone marrow aspiration biopsy from 03/20/2021 reported peripheral blood smear results from mild normochromic normocytic anemia with minimal anisocytosis and polychromasia; minimal rouleaux formation noted: No increase in teardrop cells, schistocytes, nucleated red blood cells. There were normal white blood cells with a few circulating plasma cells identified space (approximately 5% of nucleated cells); no circulating blasts are seen normal platelet count and morphologies. The bone marrow biopsy and aspirate reported approximately 60% to 80 bone marrow involvement by plasma cell neoplasm; decreased background trilineage hematopoiesis is present; no overt dyspoietic or megaloblastic changes are seen. A. Proceed with cycle 1 day 8 induction therapy Velcade/Revlimid/dexamethasone. B. Velcade is day 1, 8 and 15 subcutaneous or IV. This is a 28-day cycle. C. Revlimid is 10 mg oral day 1 through 21. D. Dexamethasone is 40 mg weekly???we will plan on days of Velcade???day 1 8 and 15. He will need to do day 22 at home. E. He may utilize Compazine and Ativan as needed for antiemetics at home. F. Today's labs reviewed in detail and discussed with Mr. Chapa and a copy was given to him. WBC 5.5, hemoglobin 10.5, platelets 189,000, ANC is 2860. Creatinine 0.9 random glucose 93 potassium 4.0 calcium 8.7 LFTs are normal. His IgG from March 13, 2021 is 7224. His kappa free light chain is 1718.7. His sed rate from March 13, 2021 was 108. G. AVOID GRAPEFRUIT PRODUCTS WITH CURRENT TREATMENT PLAN 2. Prophylaxis plan for induction chemotherapy: Continue as below. A. acyclovir 400 mgtwice daily to prevent shingles, B. aspirin 1 daily C. Bactrim DS twice daily on Tuesdays and Saturdays. 3. Follow-up plan A. Mr. Vieyra will return in 1 week for day 15 Velcade. B. Continue Revlimid orally at 10 mg daily. C. We will plan for weekly blood counts which may be done the day before his visit or the day of which ever is most convenient for him. He will need to repeat his myeloma labs 1 month after starting his treatment D. Mr. Vieyra was instructed to contact us in interim should questions or problems arise. Signed By: Carla Srinivasan <<Signature on File>>
--- NOTE | 2021-04-30 22:53 | ONC FU_ITS ---
[facility] Patient Note Patient: Jono Vieyra Unit #: [id number]: 1940 Dictated By: Carla SrinivasanDate of Visit: Apr 17, 2021 Onc MED Follow-Up/Prog Note Chief Complaint: Multiple myeloma. History of Present Illness: Mr Vieyra a 79-year-old man with lytic bone lesions and an associated M protein on serum protein electrophoresis, consistent with myeloma. He has been in good general health. He is really not had any ongoing medical illnesses. In January of this year he had suffered a traumatic left fibular shaft fracture, but that was able to be managed conservatively. On 02/19/2021 he was seen in the emergency room at [facility] in [place]. He was complaining of chest pain. His CT pulmonary angiogram showed no evidence of pulmonary embolism or other acute pulmonary pathology. Osteolytic lesions, though, were noted in the T10 and T12 vertebral bodies, concerning for metastatic disease or multiple myeloma. His CBC at that time showed hemoglobin slightly low at 12.2 g with white blood cell count 8800 and platelet count 167,000. Comprehensive metabolic profile showed borderline renal function with BUN 23 and creatinine 1.10 mg/dL. The total protein was significantly elevated at 11.7 g/dL with albumin 4.2 g/dL and calculated serum globulin 7.5 g/dL. The serum calcium was normal at 9.3 mg/dL. His further laboratory studies on 02/22/2021 included protein electrophoresis which showed a monoclonal protein in the gamma region quantitating at 5.47 g/dL. The free light chain assay showed elevated kappa light chain at 789.00 mg/L with lambda light chain 10.34 mg/L and elevated kappa/lambda ratio at 76.31. His 24-hour urine protein electrophoresis showed 3 kappa monoclonal protein bands, the 1st quantitating at 303 mg, the 2nd quantitating at 349 mg, and the 3rd quantitating it 148 mg. Staging PET/CT on 03/02/2021 showed multiple FDG positive lytic osseous lesions which included lesions at C5, left scapula, sternum, left ribs 2-4, right ribs 4-5, the T10, T12, and L1 vertebral bodies, and the right iliac bone. The index T10 lesion measured 2.9 x 2.2 cm with SUV 4.0. There were no soft tissue lesions identified. Mr. Vieyra had serum protein electrophoresis on 03/13/2021 which reported a total protein of 14.1 and an abnormal protein was reported at 6.0 the serum immunofixation reported a kappa light chain at 1718.7, lambda light chain 11.7 and kappa/lambda ratio 146.90 his IgG on 03/13/2021 was 7224, IgM 25 and IgA 55. Bone marrow aspiration biopsy from 03/20/2021 reported peripheral blood smear results from mild normochromic normocytic anemia with minimal anisocytosis and polychromasia; minimal rouleaux formation noted: No increase in teardrop cells, schistocytes, nucleated red blood cells. There were normal white blood cells with a few circulating plasma cells identified space (approximately 5% of nucleated cells); no circulating blasts are seen normal platelet count and morphologies. The bone marrow biopsy and aspirate reported approximately 60% to 80 bone marrow involvement by plasma cell neoplasm; decreased background trilineage hematopoiesis is present; no overt dyspoietic or megaloblastic changes are seen. Mr. Vieyra began his first cycle of Velcade dexamethasone Revlimid 10 mg daily on April 01, 2021. He continues Revlimid days 1 through 21 as well. His dexamethasone is 40 mg weekly (currently taking on the days of Velcade). His treatment plan is set as a 28 day cycle. He is completed cycle 1 day 1 and 8 thus far. He is here today for follow-up and is due for day 15 treatment. He denies any fever or chills. He denies any night sweats. He has had no mouth sores, sore throat or difficulty swallowing. He denies any nausea or vomiting. He denies any peripheral neuropathy symptoms. His appetite is fair and relatively unchanged from prior to starting treatment. He denies any new shortness of breath. He denies any orthopnea. He states he has not had chest pain or palpitations. He states his bowels are normal for him. He denies any new pain. It is noted that on his PET CT imaging from 03/02/2021 he has a T10 lesion measuring 2.9 x 2.2 cm with an SUV of 4. There were no soft tissue lesions present. He did mention some chronic back discomfort but states it is stable for him. He has had a reports that he has had limited activity and that he and just is not doing much like he normally does . He admits it is not been mowing his yard just because he was not sure if he could. He states he likes to get out early in the morning before he gets too hot. He has had limited activity in the house and he states he is just sent around not doing much of anything . He states he has interest in wants to get out and do more but was not sure if he could. His ECOG is 2. Past Medical History: Mr. Vieyra's medical history is unremarkable. Past Surgical History: Left inguinal hernia repair Bone marrow aspiration and biopsy0 [facility] in 2020 Allergies: No Known Allergies. Medications: Adult Aspirin EC Low Strength (81 mg) Tablet, enteric coated Oral daily LORazepam (1 mg) Tablet Oral t.i.d. PRN Ondansetron HCl (4 mg) Tablet Oral t.i.d. PRN Family History: Mr. Vieyra's mother is . Mr. Vieyra's father is . Mr. Vieyra has 1 sister who is : ovarian cancer. Both parents are , cause unknown to the patient. He had 4 sisters and 1 brother. One sister of ovarian cancer. Two of his siblings are still living. Social History: Mr. Vieyra is single. Mr. Vieyra has never smoked. He has no history of drinking. He is a non-smoker. He does not drink alcohol. Review Of Symptoms: <See Above> Vital Signs: Performed on Apr 17, 2021 13:12 Height - 68.00 in Weight - 161.2 lbs (HIGH) BSA - 1.86 sq.m BMI - 24.51 Temperature - 97.4 F (LOW) Pulse - 95 /min Respiration - 18 /min BP - 140/80 mm(hg) O2 Sat - 97 % Pain - 4 Fatigue - 5,2 - Ambulatory/capable of all self-care, unable to perform any work activities. Up and about more than 50% of waking hours. (ECOG) Physical Examination: Constitutional Alert, oriented, no acute distress. Skin pink, warm and dry. Head Normocephalic; atraumatic. Eyes Conjunctivae and sclerae are clear and without icterus. Pupils are reactive and equal. Neck Supple without masses or thyromegaly. No jugular venous distension. Hematologic/Lymphatic No petechiae or purpura. No tender or palpable lymph nodes in the cervical or supraclavicular areas. Respiratory Lungs are clear to auscultation without rhonchi or wheezing. Cardiovascular Regular rate and rhythm of heart without murmurs,clicks, gallops or rubs. Back/Spine Non-tender to palpation. Extremities No visible deformities, no cyanosis, clubbing or edema. Musculoskeletal No tenderness or swelling, normal range of motion without obvious weakness. Integumentary No rashes or lesions. He does have an area of redness on the lower abdomen at a previous subcutaneous injection of the Velcade. It is slightly warm to touch but not remarkable. There is minimal redness today and very slight/faint ecchymosis. It is healing well and does not seem to be a problem today. Neurologic No sensory or motor deficits, normal cerebellar function, normal gait. Psychiatric Alert and oriented times three. Coherent speech. Verbalizes understanding of our discussions today. Laboratory:Test performed on Apr 24, 2021 15:05 Sodium 138 mmol/L Potassium 4.1 mmol/L Chloride 106 mmol/L CO2 24 mmol/L Anion Gap 12.1 BUN 19 mg/dL Creatinine 0.8 mg/dL Cr Clearance (Est) 78.4100 mL/min Glucose 82 mg/dL Osmolality - Calculated 287 mOsm/kg Calcium 8.5 mg/dL Protein, Total 6.8 g/dL Albumin 3.9 g/dL Globulin 2.9 g/dL Bilirubin, Total 0.4 mg/dL ALT (SGPT) 26 U/L AST (SGOT) 16 U/L Alkaline Phosphatase 123 IU/L WBC 8.4 10 3/uL RBC 3.37 10 6/uL HGB 11.3 g/dL HCT 32.9 % MCV 97.6 fL MCH 33.5 pg MCHC 34.3 g/dL RDW 16.1 % Platelet Count 280 10 3/cmm MPV 11.3 fL Neutrophils 4.87 10 3/uL Lymphocytes 1.4 10 3/uL Monocytes 1.6 10 3/uL Eosinophils 0.5 10 3/uL Basophils 0.1 10 3/uL Neutrophil % 57.6 % Lymphocyte % 16.0 % Monocyte % 18.5 % Eosinophil % 5.7 % Basophils % 1.1 % NRBC % 0 % Test performed on March 13, 2021 11:47 ESR (Sed Rate) 108 mm/hr IgG 7224 mg/dL [place] Free Light Chains 1718.7 mg/L Lambda Free Light Chains 11.7 mg/L IgA 50 mg/dL [place]/Lambda Free Ratio 146.90 IgM 25 mg/dL Impression: 1. Patient with evidence of symptomatic myeloma by imaging and by protein electrophoresis. He has associated lytic bone involvement. 2. He has had no other significant ongoing medical illnesses. Plan/Problems Addressed at this Visit: Mr. Vieyra had serum protein electrophoresis on 03/13/2021 which reported a total protein of 14.1 and an abnormal protein was reported at 6.0 the serum immunofixation reported a kappa light chain at 1718.7, lambda light chain 11.7 and kappa/lambda ratio 146.90 his IgG on 03/13/2021 was 7224, IgM 25 and IgA 55. Bone marrow aspiration biopsy from 03/20/2021 reported peripheral blood smear results from mild normochromic normocytic anemia with minimal anisocytosis and polychromasia; minimal rouleaux formation noted: No increase in teardrop cells, schistocytes, nucleated red blood cells. There were normal white blood cells with a few circulating plasma cells identified space (approximately 5% of nucleated cells); no circulating blasts are seen normal platelet count and morphologies. The bone marrow biopsy and aspirate reported approximately 60% to 80 bone marrow involvement by plasma cell neoplasm; decreased background trilineage hematopoiesis is present; no overt dyspoietic or megaloblastic changes are seen. A. Proceed with cycle 1 day 15 induction therapy Velcade/Revlimid/dexamethasone. B. Velcade is day 1, 8 and 15 subcutaneous or IV. This is a 28-day cycle. C. Revlimid is 10 mg oral day 1 through 21. D. Dexamethasone is 40 mg weekly???we will plan on days of Velcade???day 1 8 and 15. He will need to do day 22 at home. E. He may utilize Compazine and Ativan as needed for antiemetics at home. F. Today's labs reviewed in detail and discussed with Mr. Vieyra and a copy was given to him. WBC 6.8, hemoglobin 10.7, platelets 269,000, ANC is 4360. Potassium 4.0 random glucose 86 creatinine 0.9 LFTs are normal. His IgG from March 13, 2021 is 7224. His kappa free light chain is 1718.7. His sed rate from March 13, 2021 was 108. G. AVOID GRAPEFRUIT PRODUCTS WITH CURRENT TREATMENT PLAN 2. Follow-up plan A. Mr. Vieyra will return in 2 week for day 1 cycle 2 Velcade. We will also reassess the oral Revlimid at that time. He is currently at 10 mg daily. We will request a CBC CMP for that visit as well. B. We will plan for weekly blood counts which may be done the day before his visit or the day of which ever is most convenient for him. He will need to repeat his myeloma labs 1 month after starting his treatment. C. He will have weekly follow-up visits with CBC CMP on the days of treatment. We will plan to do dexamethasone orally on those days if not we can do it here in the clinic. D. Mr. Vieyra was instructed to contact us in interim should questions or problems arise. 3. Mr. Vieyra has limited activity due to to confusion regarding physical activity. A. He may resume light duty physical activity see how he does with his T10 lesion. He is aware if he has back pain, leg pain hip pain or any other changes with his pain level he will need to stop the activity and reports we can further investigate his area of concern. He may try to gradually increase his activity but has been advised to monitor for the heat and with the weather if he is not doing any hand push mowing. Signed By: Carla Srinivasan-ROXIE, AOCNP Nolan Arrieta MD <<Signature on File>>
== END 2021-04-24 23:59 | disposition home or self-care (01) ==
LOC: ONCMED 05:46
PROVIDERS: Nurse Practitioner; PCP Family Medicine; Visit Provider Internal Medicine Medical Oncology
DX: Z51.11 Encounter for antineoplastic chemotherapy (principal); C90.00 Multiple myeloma not having achieved remission; C79.51 Secondary malignant neoplasm of bone; R74.8 Abnormal levels of other serum enzymes; Z79.899 Other long term (current) drug therapy; Z79.52 Long term (current) use of systemic steroids
CPT/HCPCS: 36415; 80053; 85025; 96401; 99214; J8540; J9041; Q0162

== ENCOUNTER 2021-05-16 05:46 | Outpatient (RCR) | payer MEDICARE, SELFPAY ==
[2021-04-30 13:36] LABS: Basophils # 0.2 10^3/uL (0.0-0.1); Basophils % 2.3 %; Eosinophils # 0.5 10^3/uL (0.0-0.8); Eosinophils % 5.9 %; Hematocrit 32.6 % (42.0-52.0); Lymphocytes # 1.1 10^3/uL (0.8-4.8); Lymphocytes % 12.1 %; Mean Corpuscular HGB Conc 33.7 g/dL (30.0-36.0); Mean Corpuscular Hemoglobin 33.4 pg (28.0-34.0); Mean Corpuscular Volume 99.1 fL (80-94); Mean Platelet Volume 10.3 fL (7.4-10.4); Monocytes # 1.3 10^3/uL (0.2-0.9); Monocytes % 15.5 %; Neutrophils % 63.5 %; Nucleated Red Blood Cells % 0 %; Platelet Count 327 10^3/cmm (130-400); Red Blood Count 3.29 10^6/uL (4.1-5.3); Red Cell Distribution Width 15.9 % (12.1-15.1); White Blood Count 8.7 10^3/uL (4.0-10.0)
[2021-04-30 13:53] LABS: Alanine Aminotransferase 20 U/L (0-41); Alkaline Phosphatase 131 IU/L (40-130); Anion Gap 12.3 (5-19); Aspartate Amino Transferase 14 U/L (0-40); Blood Urea Nitrogen 16 mg/dL (8-23); Calcium 8.9 mg/dL (8.5-10.5); Carbon Dioxide 23 mmol/L (22-29); Chloride 105 mmol/L (98-107); Globulin 2.7 g/dL (1.3-4.6); Glucose 90 mg/dL (65-115); Immunoglobulin IGG 1171 mg/dL (700-1600); Osmolality Calculated 283 mOsm/kg (285-295); Potassium 4.3 mmol/L (3.5-5.1); Sodium 136 mmol/L (136-145); Total Bilirubin 0.4 mg/dL (0.15-1.2); Total Protein 6.7 g/dL (6.6-8.7)
[2021-04-30 14:07] LABS: Immunoglobulin IGA 17 mg/dL (70-400); Immunoglobulin IGM 13 mg/dL (40-230)
[2021-05-02] MEDS: ondansetron 4 MG Tablet 8 MG PO (08:34)
[2021-05-02] MEDS: dexamethasone 4 mg Tablet 40 MG PO (08:34)
[2021-05-02 09:22] LABS: ABNORMAL PROTEIN BAND 1 0.8 g/dL (NONE DETECTED); ALBUMIN 3.6 g/dL (3.8-4.8); ALPHA 1 GLOBULIN 0.4 g/dL (0.2-0.3); ALPHA 2 GLOBULIN 0.9 g/dL (0.5-0.9); BETA 1 GLOBULIN 0.4 g/dL (0.4-0.6); BETA 2 GLOBULIN 0.2 g/dL (0.2-0.5); KAPPA LIGHT CHAIN, FREE, SERUM 51.5 mg/L (3.3-19.4); KAPPA/LAMBDA LIGHT CHAINS FREE 3.48 (0.26-1.65); LAMBDA LIGHT CHAIN, FREE, SERU 14.8 mg/L (5.7-26.3); PROTEIN, TOTAL 6.4 g/dL (6.1-8.1)
--- NOTE | 2021-05-05 09:39 | ONC FU_ITS ---
Dr. Arrieta Patient Follow-Up Note Patient: Jono Villanueva Unit #: [id number]: 1940 Dicatated By: Nolan Arrieta M.D.Date of Visit:May 02, 2021 Onc Med Follow-up/Prog Note Chief Complaint: Multiple myeloma. History of Present Illness: This is a 80 year-old man with IgG kappa myeloma, stage III, with associated lytic bone involvement. On 02/19/2021 he was seen in the emergency room at [facility] in [place]. He was complaining of chest pain. His CT pulmonary angiogram showed no evidence of pulmonary embolism or other acute pulmonary pathology. Osteolytic lesions, though, were noted in the T10 and T12 vertebral bodies, concerning for metastatic disease or multiple myeloma. His CBC at that time showed hemoglobin slightly low at 12.2 g with white blood cell count 8800 and platelet count 167,000. Comprehensive metabolic profile showed borderline renal function with BUN 23 and creatinine 1.10 mg/dL. The total protein was significantly elevated at 11.7 g/dL with albumin 4.2 g/dL and calculated serum globulin 7.5 g/dL. The serum calcium was normal at 9.3 mg/dL. His further laboratory studies on 02/22/2021 included protein electrophoresis which showed a monoclonal protein in the gamma region quantitating at 5.47 g/dL. The free light chain assay showed elevated kappa light chain at 789.00 mg/L with lambda light chain 10.34 mg/L and elevated kappa/lambda ratio at 76.31. His 24-hour urine protein electrophoresis showed 3 kappa monoclonal protein bands, the 1st quantitating at 303 mg, the 2nd quantitating at 349 mg, and the 3rd quantitating it 148 mg. Staging PET/CT on 03/02/2021 showed multiple FDG positive lytic osseous lesions which included lesions at C5, left scapula, sternum, left ribs 2-4, right ribs 4-5, the T10, T12, and L1 vertebral bodies, and the right iliac bone. The index T10 lesion measured 2.9 x 2.2 cm with SUV 4.0. There were no soft tissue lesions identified. I had seen him initially on 03/13/2021. His repeat protein electrophoresis showed a total protein of 14.1 g including a monoclonal protein quantitating at 6.0 g/dL. The quantitative immunoglobulin levels included an elevated IgG at 7224 mg/dL, IgA low at 50 mg/dL and IgM low at 25 mg/dL. The free light chain assay showed elevated kappa light chain at 1718.7 mg/L, normal lambda light chain at 11.7 mg/L and elevated kappa/lambda ratio at 146.90. Hemoglobin was mildly decreased at 11.4 g/dL. His creatinine was elevated at 1.4 mg/dL. Given the decline in his renal function, I did have him start high-dose dexamethasone, 40 mg daily for 4 days. He then underwent bone marrow aspiration/biopsy on 03/19/2021. It showed 60 to 80% involvement of the bone marrow by plasma cell neoplasm. 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 With those findings, he was recommended to begin treatment with Velcade/Revlimid/dexamethasone. His medical history is otherwise unremarkable. He previously had no other ongoing medical illnesses. In January 2021 he had suffered a traumatic fracture of the left fibular shaft, but it was able to be managed conservatively. He is a non-smoker. INTERIM HISTORY: He began cycle 1 of Velcade/Revlimid/dexamethasone on 04/01/2021 with the Revlimid dosage reduced at 10 mg daily on a 21/28-day schedule and the Velcade administered by subcutaneous injection on days 1, 8, and 15. He is seen for a follow-up visit. His activity is still limited, but he says he is feeling a lot better generally. His ECOG score is 2. His appetite is still not very good, but he does eat. He does not have fever or night sweats. He does report having some cough associated with phlegm in his throat, and he occasionally chokes up a little. He occasionally has shortness of breath, and he occasionally has a little chest pain. He has not had nausea or acid reflux. He had 1 or 2 episodes of diarrhea. He otherwise has had mild constipation. He does have some difficulty voiding, he tends to void just a little at a time. He still has some back pain, but that seems to be getting better. He does not complain of headache. He occasionally has dizziness. He has had some numbness in his arm/hands and in his toes, but it is intermittent. Medications: Adult Aspirin EC Low Strength (81 mg) Tablet, enteric coated Oral daily, LORazepam (1 mg) Tablet Oral t.i.d. PRN, Ondansetron HCl (4 mg) Tablet Oral t.i.d. PRN Allergies: No Known Allergies. Vital Signs: Performed on May 02, 2021 08:09 Height - 68.00 in Weight - 162 lbs (HIGH) BSA - 1.87 sq.m BMI - 24.63 Temperature - 97.7 F (LOW) Pulse - 96 /min Respiration - 18 /min BP - 152/77 mm(hg) (HIGH) O2 Sat - 97 % Pain - 4 Fatigue - 0 Physical Examination: Constitutional - He appears somewhat weak generally, Eyes - Sclerae nonicteric. Conjunctivae clear, ENMT - No lesions noted in the oral cavity, Hematologic/Lymphatic - No cervical, clavicular, or axillary adenopathy, Respiratory - Lungs are clear with slightly diminished air movement bilaterally, Cardiovascular - Heart rhythm is regular. There is a II/ systolic murmur. There is no gallop or rub noted, Abdomen - Soft. Liver and spleen are not enlarged. There is no abdominal mass or ascites noted and there is no inguinal adenopathy, Extremities - Mild edema, Neurologic - No focal neurologic deficits noted. Lab/Imaging: Test performed on Apr 30, 2021 13:09 Sodium 136 mmol/L Potassium 4.3 mmol/L Chloride 105 mmol/L CO2 23 mmol/L Anion Gap 12.3 BUN 16 mg/dL Creatinine 0.8 mg/dL Cr Clearance (Est) 78.4100 mL/min Glucose 90 mg/dL Osmolality - Calculated 283 mOsm/kg Calcium 8.9 mg/dL Protein, Total 6.7 g/dL Albumin 4.0 g/dL Globulin 2.7 g/dL Bilirubin, Total 0.4 mg/dL ALT (SGPT) 20 U/L AST (SGOT) 14 U/L Alkaline Phosphatase 131 IU/L WBC 8.7 10 3/uL RBC 3.29 10 6/uL HGB 11.0 g/dL HCT 32.6 % MCV 99.1 fL MCH 33.4 pg MCHC 33.7 g/dL RDW 15.9 % Platelet Count 327 10 3/cmm MPV 10.3 fL Neutrophils 5.50 10 3/uL Lymphocytes 1.1 10 3/uL Monocytes 1.3 10 3/uL Eosinophils 0.5 10 3/uL Basophils 0.2 10 3/uL Neutrophil % 63.5 % Lymphocyte % 12.1 % Monocyte % 15.5 % Eosinophil % 5.9 % Basophils % 2.3 % NRBC % 0 % IgG 1171 mg/dL IgA 17 mg/dL IgM 13 mg/dL Problem List: 1. IgG kappa myeloma, stage III, with associated lytic bone involvement. 2. He has had no other significant ongoing medical illnesses. Problems Addressed with this Encounter and Plan: Patient with IgG kappa myeloma, stage III. He has associated lytic bone involvement documented by PET/CT. His bone marrow aspiration/biopsy on 03/19/2021 showed 60 to 80% involvement of the marrow by plasma cell neoplasm. There was evidence of the t(4;14) translocation by FISH. On 04/01/2021 he began treatment with VRd, with the Revlimid dosage reduced at 10 mg daily on a 21/28-day schedule and the Velcade administered subcutaneously on days 1, 8, and 15. He has now completed his first cycle of treatment, which he tolerated very well. The results of his repeat protein electrophoresis are still pending, but he does appear to be showing dramatic response by total protein and by the calculated serum globulin level. There also has been significant improvement in the renal function. He does appear to be having some mild neuropathy symptoms with the Velcade, but thus far he appears to be tolerating the treatment very well. He will proceed now with his second cycle of treatment. The dosages remain the same. He will be scheduled for follow-up visit in 4 weeks. Signed By: Nolan Arrieta M.D. <<Signature on File>>
[2021-05-09 09:44] LABS: Basophils # 0.1 10^3/uL (0.0-0.1); Basophils % 1.4 %; Eosinophils # 1.3 10^3/uL (0.0-0.8); Eosinophils % 13.8 %; Hematocrit 33.4 % (42.0-52.0); Hemoglobin 11.1 g/dL (11.7-16.6); Lymphocytes # 1.1 10^3/uL (0.8-4.8); Lymphocytes % 11.6 %; Mean Corpuscular HGB Conc 33.2 g/dL (30.0-36.0); Mean Corpuscular Hemoglobin 32.9 pg (28.0-34.0); Mean Corpuscular Volume 99.1 fL (80-94); Mean Platelet Volume 11.2 fL (7.4-10.4); Monocytes # 1.3 10^3/uL (0.2-0.9); Monocytes % 13.3 %; Neutrophils % 59.2 %; Nucleated Red Blood Cells % 0 %; Platelet Count 258 10^3/cmm (130-400); Red Blood Count 3.37 10^6/uL (4.1-5.3); Red Cell Distribution Width 15.1 % (12.1-15.1); White Blood Count 9.5 10^3/uL (4.0-10.0)
[2021-05-09] MEDS: ondansetron 4 MG Tablet 8 MG PO (10:40)
[2021-05-09] MEDS: dexamethasone 4 mg Tablet 40 MG PO (10:40)
[2021-05-16 09:12] LABS: Basophils # 0.1 10^3/uL (0.0-0.1); Basophils % 1.2 %; Eosinophils # 0.7 10^3/uL (0.0-0.8); Eosinophils % 8.7 %; Lymphocytes # 0.9 10^3/uL (0.8-4.8); Lymphocytes % 10.8 %; Mean Corpuscular HGB Conc 33.3 g/dL (30.0-36.0); Mean Corpuscular Volume 99.1 fL (80-94); Mean Platelet Volume 11.5 fL (7.4-10.4); Monocytes # 1.2 10^3/uL (0.2-0.9); Neutrophils # 5.52 10^3/uL (1.8-7.7); Neutrophils % 64.6 %; Nucleated Red Blood Cells % 0 %; Platelet Count 209 10^3/cmm (130-400); Red Blood Count 3.33 10^6/uL (4.1-5.3); Red Cell Distribution Width 15.3 % (12.1-15.1); White Blood Count 8.5 10^3/uL (4.0-10.0)
[2021-05-16] MEDS: dexamethasone 4 mg Tablet 40 MG PO (12:20)
[2021-05-16] MEDS: ondansetron 4 MG Tablet 8 MG PO (12:20)
== END 2021-05-25 23:59 | disposition home or self-care (01) ==
LOC: ONCMED 05:46
PROVIDERS: PCP Family Medicine; Visit Provider Internal Medicine Medical Oncology
DX: Z51.11 Encounter for antineoplastic chemotherapy (principal); C90.00 Multiple myeloma not having achieved remission; C79.51 Secondary malignant neoplasm of bone; Z79.899 Other long term (current) drug therapy
CPT/HCPCS: 36415; 80053; 82784; 83883; 84155; 84165; 85025; 96401; 99214; J8540; J9041; Q0162

== ENCOUNTER 2021-06-25 05:44 | Outpatient (RCR) | payer MEDICARE, SELFPAY ==
[2021-05-30 09:53] LABS: Basophils # 0.2 10^3/uL (0.0-0.1); Basophils % 2.9 %; Eosinophils # 0.3 10^3/uL (0.0-0.8); Eosinophils % 4.9 %; Hematocrit 36.2 % (42.0-52.0); Hemoglobin 11.8 g/dL (11.7-16.6); Lymphocytes % 15.9 %; Mean Corpuscular HGB Conc 32.6 g/dL (30.0-36.0); Mean Corpuscular Hemoglobin 32.5 pg (28.0-34.0); Mean Corpuscular Volume 99.7 fL (80-94); Mean Platelet Volume 9.6 fL (7.4-10.4); Monocytes # 0.7 10^3/uL (0.2-0.9); Monocytes % 10.8 %; Neutrophils # 4.28 10^3/uL (1.8-7.7); Neutrophils % 65.2 %; Nucleated Red Blood Cells % 0 %; Platelet Count 437 10^3/cmm (130-400); Red Blood Count 3.63 10^6/uL (4.1-5.3); Red Cell Distribution Width 14.2 % (12.1-15.1); White Blood Count 6.6 10^3/uL (4.0-10.0)
[2021-05-30 10:04] LABS: Alanine Aminotransferase 12 U/L (0-41); Alkaline Phosphatase 119 IU/L (40-130); Anion Gap 14.3 (5-19); Aspartate Amino Transferase 15 U/L (0-40); Blood Urea Nitrogen 15 mg/dL (8-23); Calcium 8.9 mg/dL (8.5-10.5); Carbon Dioxide 23 mmol/L (22-29); Chloride 101 mmol/L (98-107); Globulin 2.6 g/dL (1.3-4.6); Glucose 87 mg/dL (65-115); Immunoglobulin IGG 725 mg/dL (700-1600); Osmolality Calculated 278 mOsm/kg (285-295); Potassium 4.3 mmol/L (3.5-5.1); Sodium 134 mmol/L (136-145); Total Bilirubin 0.4 mg/dL (0.15-1.2); Total Protein 6.6 g/dL (6.6-8.7)
[2021-05-30 10:38] LABS: Immunoglobulin IGA < 50 mg/dL (70-400); Immunoglobulin IGM < 25 mg/dL (40-230)
[2021-05-30] MEDS: ondansetron 4 MG Tablet 8 MG PO (12:50)
[2021-05-30] MEDS: denosumab 120 mg SDV SUBCUT (12:56)
[2021-05-30] MEDS: dexamethasone 4 mg Tablet 40 MG PO (13:15)
[2021-05-31 06:01] LABS: PROTEIN, TOTAL 6.3 g/dL (6.1-8.1)
[2021-05-31 11:52] LABS: ABNORMAL PROTEIN BAND 1 0.4 g/dL (NONE DETECTED); ALBUMIN 3.6 g/dL (3.8-4.8); ALPHA 1 GLOBULIN 0.4 g/dL (0.2-0.3); BETA 1 GLOBULIN 0.4 g/dL (0.4-0.6); BETA 2 GLOBULIN 0.3 g/dL (0.2-0.5); GAMMA GLOBULIN 0.6 g/dL (0.8-1.7)
[2021-05-31 12:07] LABS: KAPPA LIGHT CHAIN, FREE, SERUM 16.3 mg/L (3.3-19.4); KAPPA/LAMBDA LIGHT CHAINS FREE 1.17 (0.26-1.65); LAMBDA LIGHT CHAIN, FREE, SERU 13.9 mg/L (5.7-26.3)
--- NOTE | 2021-06-02 13:30 | ONC FU_ITS ---
Dr. Arrieta Patient Follow-Up Note Patient: Jono Villanueva Unit #: [id number]: [id number] Dicatated By: Nolan Arrieta M.D.Date of Visit:May 30, 2021 Onc Med Follow-up/Prog Note Chief Complaint: Multiple myeloma. History of Present Illness: This is a 80 year-old man with IgG kappa myeloma, stage III, with associated lytic bone involvement. On 02/19/2021 he was seen in the emergency room at [facility] in [place]. He was complaining of chest pain. His CT pulmonary angiogram showed no evidence of pulmonary embolism or other acute pulmonary pathology. Osteolytic lesions, though, were noted in the T10 and T12 vertebral bodies, concerning for metastatic disease or multiple myeloma. His CBC at that time showed hemoglobin slightly low at 12.2 g with white blood cell count 8800 and platelet count 167,000. Comprehensive metabolic profile showed borderline renal function with BUN 23 and creatinine 1.10 mg/dL. The total protein was significantly elevated at 11.7 g/dL with albumin 4.2 g/dL and calculated serum globulin 7.5 g/dL. The serum calcium was normal at 9.3 mg/dL. His further laboratory studies on 02/22/2021 included protein electrophoresis which showed a monoclonal protein in the gamma region quantitating at 5.47 g/dL. The free light chain assay showed elevated kappa light chain at 789.00 mg/L with lambda light chain 10.34 mg/L and elevated kappa/lambda ratio at 76.31. His 24-hour urine protein electrophoresis showed 3 kappa monoclonal protein bands, the 1st quantitating at 303 mg, the 2nd quantitating at 349 mg, and the 3rd quantitating it 148 mg. Staging PET/CT on 03/02/2021 showed multiple FDG positive lytic osseous lesions which included lesions at C5, left scapula, sternum, left ribs 2-4, right ribs 4-5, the T10, T12, and L1 vertebral bodies, and the right iliac bone. The index T10 lesion measured 2.9 x 2.2 cm with SUV 4.0. There were no soft tissue lesions identified. I had seen him initially on 03/13/2021. His repeat protein electrophoresis showed a total protein of 14.1 g including a monoclonal protein quantitating at 6.0 g/dL. The quantitative immunoglobulin levels included an elevated IgG at 7224 mg/dL, IgA low at 50 mg/dL and IgM low at 25 mg/dL. The free light chain assay showed elevated kappa light chain at 1718.7 mg/L, normal lambda light chain at 11.7 mg/L and elevated kappa/lambda ratio at 146.90. Hemoglobin was mildly decreased at 11.4 g/dL. His creatinine was elevated at 1.4 mg/dL. Given the decline in his renal function, I did have him start high-dose dexamethasone, 40 mg daily for 4 days. He then underwent bone marrow aspiration/biopsy on 03/19/2021. It showed 60 to 80% involvement of the bone marrow by plasma cell neoplasm. 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 With those findings, he was recommended to begin treatment with Velcade/Revlimid/dexamethasone. His medical history is otherwise unremarkable. He previously had no other ongoing medical illnesses. In January 2021 he had suffered a traumatic fracture of the left fibular shaft, but it was able to be managed conservatively. He is a non-smoker. INTERIM HISTORY: He began cycle 1 of Velcade/Revlimid/dexamethasone on 04/01/2021 with the Revlimid dosage reduced at 10 mg daily on a 21/28-day schedule and the Velcade administered by subcutaneous injection on days 1, 8, and 15. He tolerated the treatment very well. As of his follow-up visit on 05/02/2021 had been a significant decline in the calculated serum globulin level, from 6.6 g/dL to 2.7 g/dL. His blood counts remained adequate. He continued with cycle 2 of Velcade/Revlimid/dexamethasone. Dosages remain the same. He is seen for a scheduled visit. He says that lately he has felt a little rough, mainly due to pain in his upper abdomen/lower chest and back. He says it feels like a catch. His energy, though, has been pretty good. He has been doing light work. ECOG score is 1. His appetite is not good, but he is eating. His weight is up a couple of pounds. He does not have fever or night sweats. He says his mouth feels sticky, like it has a film. He does cough up phlegm. He has some shortness of breath. He has not been having nausea. He still has some acid reflux, and he has had some constipation and hard stools. He has no complaints with bladder function, but he does report having some swelling. He has no other joint or bone pain. He does not complain of headache. He occasionally has dizziness. He has no numbness/paresthesia or other focal neurologic symptoms. Medications: Adult Aspirin EC Low Strength (81 mg) Tablet, enteric coated Oral daily, LORazepam (1 mg) Tablet Oral t.i.d. PRN, Ondansetron HCl (4 mg) Tablet Oral t.i.d. PRN Allergies: No Known Allergies. Vital Signs: Performed on May 30, 2021 11:33 Height - 68.00 in Weight - 164 lbs (HIGH) BSA - 1.88 sq.m BMI - 24.94 Temperature - 97.4 F (LOW) Pulse - 78 /min Respiration - 18 /min BP - 159/79 mm(hg) (HIGH) O2 Sat - 98 % Pain - 0 Fatigue - 5 Physical Examination: Constitutional - He looks pretty good generally, Eyes - Sclerae nonicteric. Conjunctivae clear, ENMT - No lesions noted in the oral cavity, Hematologic/Lymphatic - No cervical, clavicular, or axillary adenopathy, Respiratory - Lungs sound clear, Cardiovascular - Heart rhythm is regular. There is a II/ systolic murmur. There is no gallop or rub noted, Abdomen - Soft. Liver and spleen are not enlarged. There is no abdominal mass or ascites noted and there is no inguinal adenopathy, Extremities - Sliglht edema, Neurologic - No focal neurologic deficits noted. Lab/Imaging: Test performed on May 30, 2021 09:28 Sodium 134 mmol/L Potassium 4.3 mmol/L Chloride 101 mmol/L CO2 23 mmol/L Anion Gap 14.3 BUN 15 mg/dL Creatinine 0.7 mg/dL Cr Clearance (Est) 89.6100 mL/min Glucose 87 mg/dL Osmolality - Calculated 278 mOsm/kg Calcium 8.9 mg/dL Protein, Total 6.6 g/dL Albumin 4.0 g/dL Globulin 2.6 g/dL Bilirubin, Total 0.4 mg/dL ALT (SGPT) 12 U/L AST (SGOT) 15 U/L Alkaline Phosphatase 119 IU/L WBC 6.6 10 3/uL RBC 3.63 10 6/uL HGB 11.8 g/dL HCT 36.2 % MCV 99.7 fL MCH 32.5 pg MCHC 32.6 g/dL RDW 14.2 % Platelet Count 437 10 3/cmm MPV 9.6 fL Neutrophils 4.28 10 3/uL Lymphocytes 1.0 10 3/uL Monocytes 0.7 10 3/uL Eosinophils 0.3 10 3/uL Basophils 0.2 10 3/uL Neutrophil % 65.2 % Lymphocyte % 15.9 % Monocyte % 10.8 % Eosinophil % 4.9 % Basophils % 2.9 % NRBC % 0 % [place] Free Light Chains 16.3 mg/L Lambda Free Light Chains 13.9 mg/L IgA < 50 mg/dL [place]/Lambda Free Ratio 1.17 Problem List: 1. IgG kappa myeloma, stage III, with associated lytic bone involvement. 2. He has had no other significant ongoing medical illnesses. Problems Addressed with this Encounter and Plan: Patient with IgG kappa myeloma, stage III. He has associated lytic bone involvement documented by PET/CT. His bone marrow aspiration/biopsy on 03/19/2021 showed 60 to 80% involvement of the marrow by plasma cell neoplasm. There was evidence of the t(4;14) translocation by FISH. On 04/01/2021 he began treatment with VRd, with the Revlimid dosage reduced at 10 mg daily on a 21/28-day schedule and the Velcade administered subcutaneously on days 1, 8, and 15. He has now completed 2 cycles of treatment. He has been tolerating it very well, and he has showing a very significant response by protein electrophoresis. He has developed some pain in the lower chest/upper abdomen, which she says feels like a catch. It is unclear whether this is musculoskeletal or possibly GI in origin. He will continue now with cycle 3 of Velcade/Revlimid/dexamethasone. The dosages remain the same. I will have him start empiric treatment with pantoprazole 40 mg daily and he will start a bowel regimen with senna/docusate. In addition, I will also now have him start denosumab injections for the lytic bone involvement. Signed By: Nolan Arrieta M.D. <<Signature on File>>
[2021-06-06] MEDS: ondansetron 4 MG Tablet 8 MG PO (15:01)
[2021-06-06] MEDS: dexamethasone 4 mg Tablet 40 MG PO (15:01)
[2021-06-13 13:44] LABS: Basophils # 0.1 10^3/uL (0.0-0.1); Basophils % 0.5 %; Eosinophils # 0.7 10^3/uL (0.0-0.8); Eosinophils % 7.1 %; Hemoglobin 11.6 g/dL (11.7-16.6); Lymphocytes # 1.1 10^3/uL (0.8-4.8); Lymphocytes % 11.1 %; Mean Corpuscular HGB Conc 33.1 g/dL (30.0-36.0); Mean Corpuscular Volume 96.7 fl (80-94); Mean Platelet Volume 11.4 fL (7.4-10.4); Monocytes # 1.6 10^3/uL (0.2-0.9); Monocytes % 16.3 %; Neutrophils # 6.37 10^3/uL (1.8-7.7); Neutrophils % 64.5 %; Nucleated Red Blood Cells % 0 %; Platelet Count 212 10^3/cmm (130-400); Red Blood Count 3.62 10^6/uL (4.1-5.3); Red Cell Distribution Width 14.7 % (12.1-15.1); White Blood Count 9.9 10^3/uL (4.0-10.0)
[2021-06-13] MEDS: ondansetron 4 MG Tablet 8 MG PO (14:28)
[2021-06-13] MEDS: dexamethasone 4 mg Tablet 40 MG PO (14:28)
[2021-06-25 12:18] LABS: Basophils # 0.1 10^3/uL (0.0-0.1); Basophils % 1.6 %; Eosinophils # 0.3 10^3/uL (0.0-0.8); Eosinophils % 6.1 %; Hematocrit 35.7 % (42.0-52.0); Hemoglobin 12.1 g/dL (11.7-16.6); Lymphocytes % 18.6 %; Mean Corpuscular HGB Conc 33.9 g/dL (30.0-36.0); Mean Corpuscular Hemoglobin 32.4 pg (28.0-34.0); Mean Corpuscular Volume 95.7 fl (80-94); Mean Platelet Volume 10.7 fL (7.4-10.4); Monocytes # 0.9 10^3/uL (0.2-0.9); Monocytes % 18.4 %; Neutrophils # 2.82 10^3/uL (1.8-7.7); Neutrophils % 55.1 %; Nucleated Red Blood Cells % 0 %; Platelet Count 284 10^3/cmm (130-400); Red Blood Count 3.73 10^6/uL (4.1-5.3); Red Cell Distribution Width 14.7 % (12.1-15.1); White Blood Count 5.1 10^3/uL (4.0-10.0)
[2021-06-25 12:41] LABS: Alanine Aminotransferase 11 U/L (0-41); Albumin Level 4.1 g/dL (3.5-5.2); Alkaline Phosphatase 84 IU/L (40-130); Anion Gap 12.9 (5-19); Aspartate Amino Transferase 15 U/L (0-40); Blood Urea Nitrogen 16 mg/dL (8-23); Calcium 8.1 mg/dL (8.5-10.5); Carbon Dioxide 22 mmol/L (22-29); Chloride 105 mmol/L (98-107); Globulin 2.2 g/dL (1.3-4.6); Glucose 92 mg/dL (65-115); Osmolality Calculated 283 mOsm/kg (285-295); Potassium 3.9 mmol/L (3.5-5.1); Sodium 136 mmol/L (136-145); Total Bilirubin 0.4 mg/dL (0.15-1.2); Total Protein 6.3 g/dL (6.6-8.7)
[2021-06-26 11:12] LABS: KAPPA LIGHT CHAIN, FREE, SERUM 14.1 mg/L (3.3-19.4); KAPPA/LAMBDA LIGHT CHAINS FREE 1.11 (0.26-1.65); LAMBDA LIGHT CHAIN, FREE, SERU 12.7 mg/L (5.7-26.3)
== END 2021-06-25 23:59 | disposition home or self-care (01) ==
LOC: ONCMED 05:44
PROVIDERS: PCP Family Medicine; Visit Provider Internal Medicine Medical Oncology
DX: Z51.11 Encounter for antineoplastic chemotherapy (principal); C90.00 Multiple myeloma not having achieved remission; C79.51 Secondary malignant neoplasm of bone; Z79.899 Other long term (current) drug therapy
CPT/HCPCS: 36415; 80053; 82784; 83883; 84155; 84165; 85025; 96372; 96401; 99214; J0897; J8540; J9041; Q0162

== ENCOUNTER 2021-07-17 06:13 | Outpatient (RCR) | payer MEDICARE, SELFPAY ==
[2021-06-26] MEDS: dexamethasone 4 mg Tablet 40 MG PO (09:25)
[2021-06-26] MEDS: ondansetron 4 MG Tablet 8 MG PO (09:25)
--- NOTE | 2021-06-26 09:56 | ONC FU_ITS ---
Dr. Arrieta Patient Follow-Up Note Patient: Jono Villanueva Unit #: [id number]: [id number] Dicatated By: Nolan Arrieta M.D.Date of Visit:Jun 26, 2021 Onc Med Follow-up/Prog Note Chief Complaint: Multiple myeloma. History of Present Illness: This is a 80 year-old man with IgG kappa myeloma, stage III, with associated lytic bone involvement. On 02/19/2021 he was seen in the emergency room at [facility] in [place]. He was complaining of chest pain. His CT pulmonary angiogram showed no evidence of pulmonary embolism or other acute pulmonary pathology. Osteolytic lesions, though, were noted in the T10 and T12 vertebral bodies, concerning for metastatic disease or multiple myeloma. His CBC at that time showed hemoglobin slightly low at 12.2 g with white blood cell count 8800 and platelet count 167,000. Comprehensive metabolic profile showed borderline renal function with BUN 23 and creatinine 1.10 mg/dL. The total protein was significantly elevated at 11.7 g/dL with albumin 4.2 g/dL and calculated serum globulin 7.5 g/dL. The serum calcium was normal at 9.3 mg/dL. His further laboratory studies on 02/22/2021 included protein electrophoresis which showed a monoclonal protein in the gamma region quantitating at 5.47 g/dL. The free light chain assay showed elevated kappa light chain at 789.00 mg/L with lambda light chain 10.34 mg/L and elevated kappa/lambda ratio at 76.31. His 24-hour urine protein electrophoresis showed 3 kappa monoclonal protein bands, the 1st quantitating at 303 mg, the 2nd quantitating at 349 mg, and the 3rd quantitating it 148 mg. Staging PET/CT on 03/02/2021 showed multiple FDG positive lytic osseous lesions which included lesions at C5, left scapula, sternum, left ribs 2-4, right ribs 4-5, the T10, T12, and L1 vertebral bodies, and the right iliac bone. The index T10 lesion measured 2.9 x 2.2 cm with SUV 4.0. There were no soft tissue lesions identified. I had seen him initially on 03/13/2021. His repeat protein electrophoresis showed a total protein of 14.1 g including a monoclonal protein quantitating at 6.0 g/dL. The quantitative immunoglobulin levels included an elevated IgG at 7224 mg/dL, IgA low at 50 mg/dL and IgM low at 25 mg/dL. The free light chain assay showed elevated kappa light chain at 1718.7 mg/L, normal lambda light chain at 11.7 mg/L and elevated kappa/lambda ratio at 146.90. Hemoglobin was mildly decreased at 11.4 g/dL. His creatinine was elevated at 1.4 mg/dL. Given the decline in his renal function, I did have him start high-dose dexamethasone, 40 mg daily for 4 days. He then underwent bone marrow aspiration/biopsy on 03/19/2021. It showed 60 to 80% involvement of the bone marrow by plasma cell neoplasm. 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 With those findings, he was recommended to begin treatment with Velcade/Revlimid/dexamethasone. His medical history is otherwise unremarkable. He previously had no other ongoing medical illnesses. In January 2021 he had suffered a traumatic fracture of the left fibular shaft, but it was able to be managed conservatively. He is a non-smoker. INTERIM HISTORY: He began cycle 1 of Velcade/Revlimid/dexamethasone on 04/01/2021 with the Revlimid dosage reduced at 10 mg daily on a 21/28-day schedule and the Velcade administered by subcutaneous injection on days 1, 8, and 15. He tolerated the treatment very well. As of his follow-up visit on 05/02/2021 had been a significant decline in the calculated serum globulin level, from 6.6 g/dL to 2.7 g/dL. His blood counts remained adequate. He continued with cycle 2 of Velcade/Revlimid/dexamethasone. Dosages remained the same. As of 05/30/2021 there was further decline in the M protein to 0.4 g/dL, and at that point he proceeded with cycle 3 of VRd. He is seen for a scheduled visit. He has been feeling pretty good generally. His energy has been pretty good. He is doing light work. His ECOG score is 1. He says his appetite could be better, but he is eating. He has no fever or night sweats. He has had no mouth sores. He has occasional cough. He occasionally has to take a deep breath. His breathing is otherwise okay. He does not complain of chest pain. He still has a catch in the right lower rib cage/right upper quadrant area. He still sometimes has loose stools. He has no other GI complaints. He does have some difficulty voiding, but bladder function remains adequate. He also has back pain, but that is getting better. He does not complain of headache. He occasionally has dizziness. Recently he has had some numbness in his arms. Medications: Adult Aspirin EC Low Strength (81 mg) Tablet, enteric coated Oral daily, LORazepam (1 mg) Tablet Oral t.i.d. PRN, Ondansetron HCl (4 mg) Tablet Oral t.i.d. PRN Allergies: No Known Allergies. Vital Signs: Performed on Jun 26, 2021 08:59 Height - 68.00 in Weight - 164.8 lbs (HIGH) BSA - 1.88 sq.m BMI - 25.06 Temperature - 98.4 F Pulse - 84 /min Respiration - 18 /min BP - 161/76 mm(hg) (HIGH) O2 Sat - 98 % Pain - 0 Fatigue - 0 Physical Examination: Constitutional - He looks pretty good generally, Eyes - Sclerae nonicteric. Conjunctivae clear, ENMT - No lesions noted in the oral cavity, Hematologic/Lymphatic - No cervical, clavicular, or axillary adenopathy, Respiratory - Lungs sound clear, Cardiovascular - Heart rhythm is regular. There is a II/ systolic murmur. There is no gallop or rub noted, Abdomen - Soft. There is still some tenderness over the lower anterior rib margin on the right side. Liver and spleen are not enlarged. There is no abdominal mass or ascites noted and there is no inguinal adenopathy, Extremities - Mild lower extremity edema, Neurologic - No focal neurologic deficits noted. Lab/Imaging: Test performed on Jun 13, 2021 13:30 WBC 9.9 10 3/uL RBC 3.62 10 6/uL HGB 11.6 g/dL HCT 35.0 % MCV 96.7 fl MCH 32.0 pg MCHC 33.1 g/dL RDW 14.7 % Platelet Count 212 10 3/cmm MPV 11.4 fL Neutrophils 6.37 10 3/uL Lymphocytes 1.1 10 3/uL Monocytes 1.6 10 3/uL Eosinophils 0.7 10 3/uL Basophils 0.1 10 3/uL Neutrophil % 64.5 % Lymphocyte % 11.1 % Monocyte % 16.3 % Eosinophil % 7.1 % Basophils % 0.5 % NRBC % 0 % Test performed on May 30, 2021 09:28 Sodium 134 mmol/L Potassium 4.3 mmol/L Chloride 101 mmol/L CO2 23 mmol/L Anion Gap 14.3 BUN 15 mg/dL Creatinine 0.7 mg/dL Cr Clearance (Est) 89.6100 mL/min Glucose 87 mg/dL Osmolality - Calculated 278 mOsm/kg Calcium 8.9 mg/dL Protein, Total 6.6 g/dL Albumin 4.0 g/dL Globulin 2.6 g/dL Bilirubin, Total 0.4 mg/dL ALT (SGPT) 12 U/L AST (SGOT) 15 U/L Alkaline Phosphatase 119 IU/L [place] Free Light Chains 16.3 mg/L Lambda Free Light Chains 13.9 mg/L IgA < 50 mg/dL [place]/Lambda Free Ratio 1.17 Test performed on May 09, 2021 00:00 Manual Diff Cancelled via OM: Cancelled in Connected System Test performed on Apr 30, 2021 13:09 IgG 1171 mg/dL IgM 13 mg/dL Test performed on Apr 01, 2021 13:00 CBC Slide Review Slide Review Perform SLIDE REVIEW AGREES WITH AUTOMATED RESULTS Test performed on March 13, 2021 11:47 ESR (Sed Rate) 108 mm/hr Problem List: 1. IgG kappa myeloma, stage III, with associated lytic bone involvement. 2. He has had no other significant ongoing medical illnesses. Problems Addressed with this Encounter and Plan: Patient with IgG kappa myeloma, stage III. He has associated lytic bone involvement documented by PET/CT. His bone marrow aspiration/biopsy on 03/19/2021 showed 60 to 80% involvement of the marrow by plasma cell neoplasm. There was evidence of the t(4;14) translocation by FISH. On 04/01/2021 he began treatment with VRd, with the Revlimid dosage reduced at 10 mg daily on a 21/28-day schedule and the Velcade administered subcutaneously on days 1, 8, and 15. He has now completed 3 cycles of treatment. He is showing an excellent response by follow-up protein electrophoresis. As of last month his M protein was down to 0.4 g/dL compared to pretreatment level of 5.47 g/dL. He has been tolerating treatment well. He will proceed now with cycle 4 of VRd. The dosages will remain the same. He returns in 4 weeks, at which point I will plan to transition him to maintenance Revlimid. He will also then restart his monthly denosumab injections for the lytic bone involvement. Signed By: Nolan Arrieta M.D. <<Signature on File>>
[2021-07-03] MEDS: ondansetron 4 MG Tablet 8 MG PO (14:10)
[2021-07-03] MEDS: dexamethasone 4 mg Tablet 40 MG PO (14:10)
[2021-07-03] MEDS: denosumab 120 mg SDV SUBCUT (14:15)
[2021-07-10 13:00] LABS: Basophils # 0.1 10^3/uL (0.0-0.1); Basophils % 0.6 %; Eosinophils # 0.4 10^3/uL (0.0-0.8); Eosinophils % 4.6 %; Hematocrit 37.4 % (42.0-52.0); Hemoglobin 12.4 g/dL (11.7-16.6); Lymphocytes # 1.2 10^3/uL (0.8-4.8); Lymphocytes % 12.9 %; Mean Corpuscular HGB Conc 33.2 g/dL (30.0-36.0); Mean Corpuscular Hemoglobin 32.1 pg (28.0-34.0); Mean Corpuscular Volume 96.9 fl (80-94); Mean Platelet Volume 11.7 fL (7.4-10.4); Monocytes # 1.1 10^3/uL (0.2-0.9); Monocytes % 11.5 %; Neutrophils # 6.47 10^3/uL (1.8-7.7); Neutrophils % 69.3 %; Nucleated Red Blood Cells % 0 %; Platelet Count 221 10^3/cmm (130-400); Red Blood Count 3.86 10^6/uL (4.1-5.3); White Blood Count 9.3 10^3/uL (4.0-10.0)
[2021-07-10] MEDS: dexamethasone 4 mg Tablet 40 MG PO (13:15)
[2021-07-10] MEDS: ondansetron 4 MG Tablet 8 MG PO (13:30)
[2021-07-17 10:44] LABS: Basophils # 0.1 10^3/uL (0.0-0.1); Basophils % 0.5 %; Eosinophils # 0.6 10^3/uL (0.0-0.8); Eosinophils % 5.9 %; Hematocrit 40.7 % (42.0-52.0); Hemoglobin 13.5 g/dL (11.7-16.6); Lymphocytes # 0.9 10^3/uL (0.8-4.8); Lymphocytes % 8.6 %; Mean Corpuscular HGB Conc 33.2 g/dL (30.0-36.0); Mean Corpuscular Hemoglobin 31.8 pg (28.0-34.0); Mean Corpuscular Volume 95.8 fl (80-94); Mean Platelet Volume 12.3 fL (7.4-10.4); Monocytes % 10.2 %; Neutrophils # 7.34 10^3/uL (1.8-7.7); Neutrophils % 74.2 %; Nucleated Red Blood Cells % 0 %; Platelet Count 214 10^3/cmm (130-400); Red Blood Count 4.25 10^6/uL (4.1-5.3); White Blood Count 9.9 10^3/uL (4.0-10.0)
[2021-07-17 11:09] LABS: Alanine Aminotransferase 17 U/L (0-41); Albumin Level 4.2 g/dL (3.5-5.2); Alkaline Phosphatase 90 IU/L (40-130); Anion Gap 12.8 (5-19); Aspartate Amino Transferase 14 U/L (0-40); Blood Urea Nitrogen 12 mg/dL (8-23); Calcium 8.7 mg/dL (8.5-10.5); Carbon Dioxide 23 mmol/L (22-29); Chloride 104 mmol/L (98-107); Globulin 2.2 g/dL (1.3-4.6); Glucose 97 mg/dL (65-115); Immunoglobulin IGA 50 mg/dL (70-400); Immunoglobulin IGG 518 mg/dL (700-1600); Immunoglobulin IGM 25 mg/dL (40-230); Osmolality Calculated 282 mOsm/kg (285-295); Potassium 3.8 mmol/L (3.5-5.1); Sodium 136 mmol/L (136-145); Total Bilirubin 0.5 mg/dL (0.15-1.2); Total Protein 6.4 g/dL (6.6-8.7)
[2021-07-18 08:28] LABS: PROTEIN, TOTAL 6.4 g/dL (6.1-8.1)
[2021-07-18 13:37] LABS: ABNORMAL PROTEIN BAND 1 0.2 g/dL (NONE DETECTED); ALBUMIN 4.1 g/dL (3.8-4.8); ALPHA 1 GLOBULIN 0.4 g/dL (0.2-0.3); ALPHA 2 GLOBULIN 0.9 g/dL (0.5-0.9); BETA 1 GLOBULIN 0.4 g/dL (0.4-0.6); BETA 2 GLOBULIN 0.2 g/dL (0.2-0.5); GAMMA GLOBULIN 0.5 g/dL (0.8-1.7)
[2021-07-18 14:47] LABS: LAMBDA LIGHT CHAIN, FREE, SERU 13.3 mg/L (5.7-26.3)
--- NOTE | 2021-07-20 12:07 | ONC FU_ITS ---
Dr. Arrieta Patient Follow-Up Note Patient: Jono Villanueva Unit #: [id number]: [id number] Dicatated By: Nolan Arrieta M.D.Date of Visit:Jul 17, 2021 Onc Med Follow-up/Prog Note Chief Complaint: Multiple myeloma. History of Present Illness: This is a 81 year-old man with IgG kappa myeloma, stage III, with associated lytic bone involvement. On 02/19/2021 he was seen in the emergency room at [facility] in [place]. He was complaining of chest pain. His CT pulmonary angiogram showed no evidence of pulmonary embolism or other acute pulmonary pathology. Osteolytic lesions, though, were noted in the T10 and T12 vertebral bodies, concerning for metastatic disease or multiple myeloma. His CBC at that time showed hemoglobin slightly low at 12.2 g with white blood cell count 8800 and platelet count 167,000. Comprehensive metabolic profile showed borderline renal function with BUN 23 and creatinine 1.10 mg/dL. The total protein was significantly elevated at 11.7 g/dL with albumin 4.2 g/dL and calculated serum globulin 7.5 g/dL. The serum calcium was normal at 9.3 mg/dL. His further laboratory studies on 02/22/2021 included protein electrophoresis which showed a monoclonal protein in the gamma region quantitating at 5.47 g/dL. The free light chain assay showed elevated kappa light chain at 789.00 mg/L with lambda light chain 10.34 mg/L and elevated kappa/lambda ratio at 76.31. His 24-hour urine protein electrophoresis showed 3 kappa monoclonal protein bands, the 1st quantitating at 303 mg, the 2nd quantitating at 349 mg, and the 3rd quantitating it 148 mg. Staging PET/CT on 03/02/2021 showed multiple FDG positive lytic osseous lesions which included lesions at C5, left scapula, sternum, left ribs 2-4, right ribs 4-5, the T10, T12, and L1 vertebral bodies, and the right iliac bone. The index T10 lesion measured 2.9 x 2.2 cm with SUV 4.0. There were no soft tissue lesions identified. I had seen him initially on 03/13/2021. His repeat protein electrophoresis showed a total protein of 14.1 g including a monoclonal protein quantitating at 6.0 g/dL. The quantitative immunoglobulin levels included an elevated IgG at 7224 mg/dL, IgA low at 50 mg/dL and IgM low at 25 mg/dL. The free light chain assay showed elevated kappa light chain at 1718.7 mg/L, normal lambda light chain at 11.7 mg/L and elevated kappa/lambda ratio at 146.90. Hemoglobin was mildly decreased at 11.4 g/dL. His creatinine was elevated at 1.4 mg/dL. Given the decline in his renal function, I did have him start high-dose dexamethasone, 40 mg daily for 4 days. He then underwent bone marrow aspiration/biopsy on 03/19/2021. It showed 60 to 80% involvement of the bone marrow by plasma cell neoplasm. 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 With those findings, he was recommended to begin treatment with Velcade/Revlimid/dexamethasone. His medical history is otherwise unremarkable. He previously had no other ongoing medical illnesses. In January 2021 he had suffered a traumatic fracture of the left fibular shaft, but it was able to be managed conservatively. He is a non-smoker. INTERIM HISTORY: He began cycle 1 of Velcade/Revlimid/dexamethasone on 04/01/2021 with the Revlimid dosage reduced at 10 mg daily on a 21/28-day schedule and the Velcade administered by subcutaneous injection on days 1, 8, and 15. He tolerated the treatment very well. As of his follow-up visit on 05/02/2021 had been a significant decline in the calculated serum globulin level, from 6.6 g/dL to 2.7 g/dL. His blood counts remained adequate. He continued with cycle 2 of Velcade/Revlimid/dexamethasone. Dosages remained the same. As of 05/30/2021 there was further decline in the M protein to 0.4 g/dL. At that point he proceeded with cycle 3 of VRd, and he continued with cycle 4 on on 06/26/2021. He is seen for a followup visit. He has been feeling good generally. He has pretty good energy. He is able to do light work. ECOG score is one. His appetite is good. He has no fever or night sweats. He has had a little bit of sore throat. He occasionally has cough and he occasionally gets short winded. He does not complain of chest pain. He has no GI complaints. He has urinary frequency and nocturia. He has just occasional back pain now. He does not complain of headache. He does have some dizziness. He sometimes has numbness in his hands. Medications: Adult Aspirin EC Low Strength (81 mg) Tablet, enteric coated Oral daily, LORazepam (1 mg) Tablet Oral t.i.d. PRN, Ondansetron HCl (4 mg) Tablet Oral t.i.d. PRN Allergies: No Known Allergies. Vital Signs: Performed on Jul 17, 2021 11:36 Height - 68.00 in Weight - 167.4 lbs (HIGH) BSA - 1.90 sq.m BMI - 25.45 Temperature - 97.1 F (LOW) Pulse - 76 /min Respiration - 18 /min BP - 158/75 mm(hg) (HIGH) O2 Sat - 99 % Pain - 5 Fatigue - 5 Physical Examination: Constitutional - He looks pretty good generally, Eyes - Sclerae nonicteric. Conjunctivae clear, ENMT - No lesions noted in the oral cavity, Hematologic/Lymphatic - No cervical, clavicular, or axillary adenopathy, Respiratory - Lungs sound clear, Cardiovascular - Heart rhythm is regular. There is a II/ systolic murmur. There is no gallop or rub noted, Abdomen - Soft. Liver and spleen are not enlarged. There is no abdominal mass or ascites noted and there is no inguinal adenopathy, Extremities - No edema, Neurologic - No focal neurologic deficits noted. Lab/Imaging: Test performed on Jul 17, 2021 10:15 Sodium 136 mmol/L Potassium 3.8 mmol/L Chloride 104 mmol/L CO2 23 mmol/L Anion Gap 12.8 BUN 12 mg/dL Creatinine 0.7 mg/dL Cr Clearance (Est) 88.1700 mL/min Glucose 97 mg/dL Osmolality - Calculated 282 mOsm/kg Calcium 8.7 mg/dL Protein, Total 6.4 g/dL Albumin 4.2 g/dL Globulin 2.2 g/dL Bilirubin, Total 0.5 mg/dL ALT (SGPT) 17 U/L AST (SGOT) 14 U/L Alkaline Phosphatase 90 IU/L WBC 9.9 10 3/uL RBC 4.25 10 6/uL HGB 13.5 g/dL HCT 40.7 % MCV 95.8 fl MCH 31.8 pg MCHC 33.2 g/dL RDW 15.0 % Platelet Count 214 10 3/cmm MPV 12.3 fL Neutrophils 7.34 10 3/uL Lymphocytes 0.9 10 3/uL Monocytes 1.0 10 3/uL Eosinophils 0.6 10 3/uL Basophils 0.1 10 3/uL Neutrophil % 74.2 % Lymphocyte % 8.6 % Monocyte % 10.2 % Eosinophil % 5.9 % Basophils % 0.5 % NRBC % 0 % [place] Free Light Chains 16.0 mg/L Lambda Free Light Chains 13.3 mg/L IgA 50 mg/dL [place]/Lambda Free Ratio 1.20 Problem List: 1. IgG kappa myeloma, stage III, with associated lytic bone involvement. 2. He has had no other significant ongoing medical illnesses. Problems Addressed with this Encounter and Plan: Patient with IgG kappa myeloma, stage III. He has associated lytic bone involvement documented by PET/CT. His bone marrow aspiration/biopsy on 03/19/2021 showed 60 to 80% involvement of the marrow by plasma cell neoplasm. There was evidence of the t(4;14) translocation by FISH. On 04/01/2021 he began treatment with VRd, with the Revlimid dosage reduced at 10 mg daily on a 21/28-day schedule and the Velcade administered subcutaneously on days 1, 8, and 15. He has now completed 4 cycles of treatment. He has had a very good response, with his M protein now decreased to 0.2 g/dL compared to his baseline at 6.0 g/dL. As such, he will now transition to maintenance Revlimid, which he will continue at 10 mg daily on a 21/28-day schedule, as he does seem to tolerate it very well. He is aware that he needs to continue his aspirin prophylaxis. I will plan to see him for a 1 month follow-up visit. Signed By: Nolan Arrieta M.D. <<Signature on File>>
== END 2021-07-25 23:59 | disposition home or self-care (01) ==
LOC: ONCMED 06:13
PROVIDERS: PCP Family Medicine; Visit Provider Internal Medicine Medical Oncology
DX: Z51.11 Encounter for antineoplastic chemotherapy (principal); C90.00 Multiple myeloma not having achieved remission; C79.51 Secondary malignant neoplasm of bone; Z79.899 Other long term (current) drug therapy
CPT/HCPCS: 36415; 80053; 82784; 83883; 84155; 84165; 85025; 96372; 96401; 99214; 99215; J0897; J8540; J9041; Q0162

== ENCOUNTER 2021-08-21 06:10 | Outpatient (RCR) | payer MEDICARE, SELFPAY ==
[2021-08-15 14:27] LABS: Basophils # 0.2 10^3/uL (0.0-0.1); Basophils % 3.1 %; Eosinophils # 0.4 10^3/uL (0.0-0.8); Eosinophils % 7.6 %; Hematocrit 40.3 % (42.0-52.0); Hemoglobin 13.3 g/dL (11.7-16.6); Lymphocytes # 1.3 10^3/uL (0.8-4.8); Lymphocytes % 23.8 %; Mean Corpuscular Hemoglobin 31.3 pg (28.0-34.0); Mean Corpuscular Volume 94.8 fl (80-94); Monocytes # 0.9 10^3/uL (0.2-0.9); Monocytes % 16.9 %; Neutrophils # 2.67 10^3/uL (1.8-7.7); Neutrophils % 48.4 %; Nucleated Red Blood Cells % 0 %; Platelet Count 228 10^3/cmm (130-400); Red Blood Count 4.25 10^6/uL (4.1-5.3); Red Cell Distribution Width 15.2 % (12.1-15.1); White Blood Count 5.5 10^3/uL (4.0-10.0)
[2021-08-15 14:45] LABS: Alanine Aminotransferase 10 U/L (0-41); Albumin Level 4.4 g/dL (3.5-5.2); Alkaline Phosphatase 67 IU/L (40-130); Anion Gap 12.6 (5-19); Aspartate Amino Transferase 13 U/L (0-40); Blood Urea Nitrogen 13 mg/dL (8-23); Calcium 9.4 mg/dL (8.5-10.5); Carbon Dioxide 26 mmol/L (22-29); Chloride 101 mmol/L (98-107); Globulin 2.1 g/dL (1.3-4.6); Glucose 93 mg/dL (65-115); Osmolality Calculated 280 mOsm/kg (285-295); Potassium 4.6 mmol/L (3.5-5.1); Sodium 135 mmol/L (136-145); Total Bilirubin 0.5 mg/dL (0.15-1.2); Total Protein 6.5 g/dL (6.6-8.7)
[2021-08-16 07:53] LABS: PROTEIN, TOTAL 6.4 g/dL (6.1-8.1)
[2021-08-16 13:02] LABS: ABNORMAL PROTEIN BAND 1 0.1 g/dL (NONE DETECTED); ALBUMIN 4.1 g/dL (3.8-4.8); ALPHA 1 GLOBULIN 0.3 g/dL (0.2-0.3); ALPHA 2 GLOBULIN 0.8 g/dL (0.5-0.9); BETA 1 GLOBULIN 0.4 g/dL (0.4-0.6); BETA 2 GLOBULIN 0.2 g/dL (0.2-0.5); GAMMA GLOBULIN 0.6 g/dL (0.8-1.7)
[2021-08-16 15:09] LABS: KAPPA LIGHT CHAIN, FREE, SERUM 14.5 mg/L (3.3-19.4); KAPPA/LAMBDA LIGHT CHAINS FREE 1.21 (0.26-1.65)
--- NOTE | 2021-08-22 07:30 | ONC FU_ITS ---
Dr. Arrieta Patient Follow-Up Note Patient: Jono Villanueva Unit #: [id number]: 1940 Dicatated By: Nolan Arrieta M.D.Date of Visit:Aug 21, 2021 Onc Med Follow-up/Prog Note Chief Complaint: Multiple myeloma. History of Present Illness: This is a 81 year-old man with IgG kappa myeloma, stage III, with associated lytic bone involvement. On 02/19/2021 he was seen in the emergency room at [facility] in [place]. He was complaining of chest pain. His CT pulmonary angiogram showed no evidence of pulmonary embolism or other acute pulmonary pathology. Osteolytic lesions, though, were noted in the T10 and T12 vertebral bodies, concerning for metastatic disease or multiple myeloma. His CBC at that time showed hemoglobin slightly low at 12.2 g with white blood cell count 8800 and platelet count 167,000. Comprehensive metabolic profile showed borderline renal function with BUN 23 and creatinine 1.10 mg/dL. The total protein was significantly elevated at 11.7 g/dL with albumin 4.2 g/dL and calculated serum globulin 7.5 g/dL. The serum calcium was normal at 9.3 mg/dL. His further laboratory studies on 02/22/2021 included protein electrophoresis which showed a monoclonal protein in the gamma region quantitating at 5.47 g/dL. The free light chain assay showed elevated kappa light chain at 789.00 mg/L with lambda light chain 10.34 mg/L and elevated kappa/lambda ratio at 76.31. His 24-hour urine protein electrophoresis showed 3 kappa monoclonal protein bands, the 1st quantitating at 303 mg, the 2nd quantitating at 349 mg, and the 3rd quantitating it 148 mg. Staging PET/CT on 03/02/2021 showed multiple FDG positive lytic osseous lesions which included lesions at C5, left scapula, sternum, left ribs 2-4, right ribs 4-5, the T10, T12, and L1 vertebral bodies, and the right iliac bone. The index T10 lesion measured 2.9 x 2.2 cm with SUV 4.0. There were no soft tissue lesions identified. I had seen him initially on 03/13/2021. His repeat protein electrophoresis showed a total protein of 14.1 g including a monoclonal protein quantitating at 6.0 g/dL. The quantitative immunoglobulin levels included an elevated IgG at 7224 mg/dL, IgA low at 50 mg/dL and IgM low at 25 mg/dL. The free light chain assay showed elevated kappa light chain at 1718.7 mg/L, normal lambda light chain at 11.7 mg/L and elevated kappa/lambda ratio at 146.90. Hemoglobin was mildly decreased at 11.4 g/dL. His creatinine was elevated at 1.4 mg/dL. Given the decline in his renal function, I did have him start high-dose dexamethasone, 40 mg daily for 4 days. He then underwent bone marrow aspiration/biopsy on 03/19/2021. It showed 60 to 80% involvement of the bone marrow by plasma cell neoplasm. 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 With those findings, he was recommended to begin treatment with Velcade/Revlimid/dexamethasone. His medical history is otherwise unremarkable. He previously had no other ongoing medical illnesses. In January 2021 he had suffered a traumatic fracture of the left fibular shaft, but it was able to be managed conservatively. He is a non-smoker. INTERIM HISTORY: He began cycle 1 of Velcade/Revlimid/dexamethasone on 04/01/2021 with the Revlimid dosage reduced at 10 mg daily on a 21/28-day schedule and the Velcade administered by subcutaneous injection on days 1, 8, and 15. He tolerated the treatment very well. As of his follow-up visit on 05/02/2021 had been a significant decline in the calculated serum globulin level, from 6.6 g/dL to 2.7 g/dL. His blood counts remained adequate. He continued with cycle 2 of Velcade/Revlimid/dexamethasone. Dosages remained the same. As of 05/30/2021 there was further decline in the M protein to 0.4 g/dL. At that point he proceeded with cycle 3 of VRd, and he continued with cycle 4 on on 06/26/2021. As of 07/17/2021 his repeat protein electrophoresis showed his M protein down to 0.2 g/dL, and at that point his treatment was transitioned to maintenance Revlimid at 10 mg daily on a 21/20-day schedule. He is seen for a followup visit. He has been feeling pretty good generally. He says his energy is fair. He is doing light work. ECOG score is 1. His appetite is good. He has no fever or night sweats. He recently has had a little bit of sore throat, and he has had some cough associated with phlegm in his throat. He has some shortness of breath. He also has had some mild chest discomfort with deep inspiration. He has occasional heartburn and he also has some mild constipation. Bladder function remains adequate, though he does complain of post void dribbling. His back sometimes hurts. He has no other joint or bone pain. He does not complain of headache. He sometimes has dizziness. He has some numbness in his right arm and hand. Medications: Adult Aspirin EC Low Strength (81 mg) Tablet, enteric coated Oral daily, LORazepam (1 mg) Tablet Oral t.i.d. PRN, Ondansetron HCl (4 mg) Tablet Oral t.i.d. PRN Allergies: No Known Allergies. Vital Signs: Performed on Aug 21, 2021 12:31 Height - 68.00 in Weight - 169.6 lbs (HIGH) BSA - 1.91 sq.m BMI - 25.79 Temperature - 96.9 F (LOW) Pulse - 78 /min Respiration - 18 /min BP - 163/93 mm(hg) (HIGH) O2 Sat - 98 % Pain - 8 Fatigue - 5 Physical Examination: Constitutional - He looks pretty good generally, Eyes - Sclerae nonicteric. Conjunctivae clear, ENMT - No lesions noted in the oral cavity, Hematologic/Lymphatic - No cervical, clavicular, or axillary adenopathy, Respiratory - Lungs sound clear, Cardiovascular - Heart rhythm is regular. There is a II/ systolic murmur. There is no gallop or rub noted, Abdomen - Soft. Liver and spleen are not enlarged. There is no abdominal mass or ascites noted and there is no inguinal adenopathy, Extremities - No edema. He has scattered ecchymoses, Neurologic - No focal neurologic deficits noted. Lab/Imaging: Test performed on Aug 15, 2021 13:38 Sodium 135 mmol/L Potassium 4.6 mmol/L Chloride 101 mmol/L CO2 26 mmol/L Anion Gap 12.6 BUN 13 mg/dL Creatinine 0.6 mg/dL Cr Clearance (Est) 102.8600 mL/min Glucose 93 mg/dL Osmolality - Calculated 280 mOsm/kg Calcium 9.4 mg/dL Protein, Total 6.5 g/dL Albumin 4.4 g/dL Globulin 2.1 g/dL Bilirubin, Total 0.5 mg/dL ALT (SGPT) 10 U/L AST (SGOT) 13 U/L Alkaline Phosphatase 67 IU/L WBC 5.5 10 3/uL RBC 4.25 10 6/uL HGB 13.3 g/dL HCT 40.3 % MCV 94.8 fl MCH 31.3 pg MCHC 33.0 g/dL RDW 15.2 % Platelet Count 228 10 3/cmm MPV 10.0 fL Neutrophils 2.67 10 3/uL Lymphocytes 1.3 10 3/uL Monocytes 0.9 10 3/uL Eosinophils 0.4 10 3/uL Basophils 0.2 10 3/uL Neutrophil % 48.4 % Lymphocyte % 23.8 % Monocyte % 16.9 % Eosinophil % 7.6 % Basophils % 3.1 % NRBC % 0 % [place] Free Light Chains 14.5 mg/L Lambda Free Light Chains 12.0 mg/L [place]/Lambda Free Ratio 1.21 Problem List: 1. IgG kappa myeloma, stage III, with associated lytic bone involvement. 2. He has had no other significant ongoing medical illnesses. Problems Addressed with this Encounter and Plan: 1. Patient with IgG kappa myeloma, stage III. He has associated lytic bone involvement documented by PET/CT. His bone marrow aspiration/biopsy on 03/19/2021 showed 60 to 80% involvement of the marrow by plasma cell neoplasm. There was evidence of the t(4;14) translocation by FISH. On 04/01/2021 he began treatment with VRd, with the Revlimid dosage reduced at 10 mg daily on a /-day schedule and the Velcade administered subcutaneously on days 1, 8, and 15. As of June 2021 he had completed 4 cycles of treatment. At that point he was showing a very good response with his M protein decreased to 0.2 g/dL. His treatment was then transitioned to maintenance Revlimid 10 mg daily on a 21/28-day schedule. Overall he appears to be doing well clinically. He is now on maintenance Revlimid and continuing to show very good response. He tolerates the treatment well. He will continue Revlimid 10 mg daily on a 21/28-day schedule. He continues aspirin prophylaxis. He is advised he can now stop his prophylaxis with Bactrim and acyclovir. He will be given the flu shot and a Prevnar 13 vaccination today. I will see him again in 1 month. 2. He had associated lytic bone involvement. He also will need to continue supportive therapy with denosumab injections. Signed By: Nolan Arrieta M.D. <<Signature on File>>
== END 2021-08-25 23:59 | disposition home or self-care (01) ==
LOC: ONCMED 06:10
PROVIDERS: PCP Family Medicine; Visit Provider Internal Medicine Medical Oncology
DX: C90.00 Multiple myeloma not having achieved remission (principal); C79.51 Secondary malignant neoplasm of bone; Z79.899 Other long term (current) drug therapy
CPT/HCPCS: 36415; 80053; 83883; 84155; 84165; 85025; 90471; 90670; 90686; 99214

== ENCOUNTER 2021-09-02 06:54 | Outpatient (RCR) | payer MEDICARE, SELFPAY | END 2021-09-24 23:59 | disposition home or self-care (01) | LOC: ONCMED 06:54 | PROVIDERS: PCP Family Medicine; Visit Provider Internal Medicine Medical Oncology | DX: C90.00 Multiple myeloma not having achieved remission (principal); Z79.899 Other long term (current) drug therapy | CPT/HCPCS: 96372 ==

== ENCOUNTER 2021-09-30 06:28 | Outpatient (RCR) | payer MEDICARE, SELFPAY ==
[2021-09-30 13:08] LABS: Basophils # 0.1 10^3/uL (0.0-0.1); Basophils % 1.7 %; Eosinophils # 0.3 10^3/uL (0.0-0.8); Hematocrit 42.1 % (42.0-52.0); Hemoglobin 13.9 g/dL (11.7-16.6); Lymphocytes # 1.7 10^3/uL (0.8-4.8); Lymphocytes % 26.7 %; Mean Corpuscular Hemoglobin 30.5 pg (28.0-34.0); Mean Corpuscular Volume 92.5 fl (80-94); Mean Platelet Volume 10.4 fL (7.4-10.4); Monocytes # 0.7 10^3/uL (0.2-0.9); Monocytes % 11.3 %; Neutrophils # 3.51 10^3/uL (1.8-7.7); Neutrophils % 54.8 %; Nucleated Red Blood Cells % 0 %; Platelet Count 264 10^3/cmm (130-400); Red Blood Count 4.55 10^6/uL (4.1-5.3); Red Cell Distribution Width 14.3 % (12.1-15.1); White Blood Count 6.4 10^3/uL (4.0-10.0)
[2021-09-30 13:37] LABS: Alanine Aminotransferase 10 U/L (0-41); Albumin Level 4.4 g/dL (3.5-5.2); Alkaline Phosphatase 63 IU/L (40-130); Anion Gap 17.2 (5-19); Aspartate Amino Transferase 13 U/L (0-40); Blood Urea Nitrogen 16 mg/dL (8-23); Calcium 8.7 mg/dL (8.5-10.5); Carbon Dioxide 21 mmol/L (22-29); Chloride 102 mmol/L (98-107); Globulin 2.6 g/dL (1.3-4.6); Glucose 82 mg/dL (65-115); Osmolality Calculated 282 mOsm/kg (285-295); Potassium 4.2 mmol/L (3.5-5.1); Sodium 136 mmol/L (136-145); Total Bilirubin 0.5 mg/dL (0.15-1.2)
[2021-09-30] MEDS: denosumab 120 mg SDV SUBCUT (13:40)
[2021-09-30 14:35] LABS: Free T4 Free Thyroxine 0.68 ng/dL (0.82-1.77); Thyroid Stimulating Hormone 5.13 uIU/mL (0.27-4.20)
--- NOTE | 2021-10-01 06:27 | ONC FU_ITS ---
Dr. Arrieta Patient Follow-Up Note Patient: Jono Villanueva Unit #: [id number]: 1940 Dicatated By: Nolan Arrieta M.D.Date of Visit:Sep 30, 2021 Onc Med Follow-up/Prog Note Chief Complaint: Multiple myeloma. History of Present Illness: This is a 81 year-old man with IgG kappa myeloma, stage III, with associated lytic bone involvement. On 02/19/2021 he was seen in the emergency room at [facility] in [place]. He was complaining of chest pain. His CT pulmonary angiogram showed no evidence of pulmonary embolism or other acute pulmonary pathology. Osteolytic lesions, though, were noted in the T10 and T12 vertebral bodies, concerning for metastatic disease or multiple myeloma. His CBC at that time showed hemoglobin slightly low at 12.2 g with white blood cell count 8800 and platelet count 167,000. Comprehensive metabolic profile showed borderline renal function with BUN 23 and creatinine 1.10 mg/dL. The total protein was significantly elevated at 11.7 g/dL with albumin 4.2 g/dL and calculated serum globulin 7.5 g/dL. The serum calcium was normal at 9.3 mg/dL. His further laboratory studies on 02/22/2021 included protein electrophoresis which showed a monoclonal protein in the gamma region quantitating at 5.47 g/dL. The free light chain assay showed elevated kappa light chain at 789.00 mg/L with lambda light chain 10.34 mg/L and elevated kappa/lambda ratio at 76.31. His 24-hour urine protein electrophoresis showed 3 kappa monoclonal protein bands, the 1st quantitating at 303 mg, the 2nd quantitating at 349 mg, and the 3rd quantitating it 148 mg. Staging PET/CT on 03/02/2021 showed multiple FDG positive lytic osseous lesions which included lesions at C5, left scapula, sternum, left ribs 2-4, right ribs 4-5, the T10, T12, and L1 vertebral bodies, and the right iliac bone. The index T10 lesion measured 2.9 x 2.2 cm with SUV 4.0. There were no soft tissue lesions identified. I had seen him initially on 03/13/2021. His repeat protein electrophoresis showed a total protein of 14.1 g including a monoclonal protein quantitating at 6.0 g/dL. The quantitative immunoglobulin levels included an elevated IgG at 7224 mg/dL, IgA low at 50 mg/dL and IgM low at 25 mg/dL. The free light chain assay showed elevated kappa light chain at 1718.7 mg/L, normal lambda light chain at 11.7 mg/L and elevated kappa/lambda ratio at 146.90. Hemoglobin was mildly decreased at 11.4 g/dL. His creatinine was elevated at 1.4 mg/dL. Given the decline in his renal function, I did have him start high-dose dexamethasone, 40 mg daily for 4 days. He then underwent bone marrow aspiration/biopsy on 03/19/2021. It showed 60 to 80% involvement of the bone marrow by plasma cell neoplasm. 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 With those findings, he was recommended to begin treatment with Velcade/Revlimid/dexamethasone. His medical history is otherwise unremarkable. He previously had no other ongoing medical illnesses. In January 2021 he had suffered a traumatic fracture of the left fibular shaft, but it was able to be managed conservatively. He is a non-smoker. INTERIM HISTORY: He began cycle 1 of Velcade/Revlimid/dexamethasone on 04/01/2021 with the Revlimid dosage reduced at 10 mg daily on a 21/28-day schedule and the Velcade administered by subcutaneous injection on days 1, 8, and 15. He tolerated the treatment very well. As of his follow-up visit on 05/02/2021 had been a significant decline in the calculated serum globulin level, from 6.6 g/dL to 2.7 g/dL. His blood counts remained adequate. He continued with cycle 2 of Velcade/Revlimid/dexamethasone. Dosages remained the same. As of 05/30/2021 there was further decline in the M protein to 0.4 g/dL. At that point he proceeded with cycle 3 of VRd, and he continued with cycle 4 on on 06/26/2021. As of 07/17/2021 his repeat protein electrophoresis showed his M protein down to 0.2 g/dL, and at that point his treatment was transitioned to maintenance Revlimid at 10 mg daily on a 21/28-day schedule. He also continued monthly denosumab injections for the lytic bone involvement. He is seen for a followup visit. He has been feeling good generally. He has been having some itchy skin lesions, but he says they go away. He also noticed some swelling in his neck. His energy has been pretty good, and he has normal activity. ECOG score is 0. He says his appetite could be better. His weight is stable. He does not have fever or night sweats. He has had no mouth sores. He has nonproductive cough. He sometimes has shortness of breath and occasionally has chest pain. He currently has no GI or complaints. He has no significant joint or bone pain. He occasionally has headache and he sometimes has dizziness. He has some numbness in his right arm. Medications: Adult Aspirin EC Low Strength (81 mg) Tablet, enteric coated Oral daily, LORazepam (1 mg) Tablet Oral t.i.d. PRN, Ondansetron HCl (4 mg) Tablet Oral t.i.d. PRN Allergies: No Known Allergies. Vital Signs: Performed on Sep 30, 2021 13:16 Height - 68.00 in Weight - 168.8 lbs (LOW) BSA - 1.90 sq.m BMI - 25.67 Temperature - 97.4 F (LOW) Pulse - 89 /min Respiration - 20 /min BP - 190/78 mm(hg) (HIGH) O2 Sat - 98 % Pain - 5 Fatigue - 8 Physical Examination: Constitutional - He looks pretty good generally, Eyes - Sclerae nonicteric. Conjunctivae clear, ENMT - No lesions noted in the oral cavity, Neck - He has a goiter, which is more prominent on the right, Hematologic/Lymphatic - No cervical, clavicular, or axillary adenopathy, Respiratory - Lungs sound clear, Cardiovascular - Heart rhythm is regular with some premature beats. There is a II/ systolic murmur. There is no gallop or rub noted, Abdomen - Soft. Liver and spleen are not enlarged. There is no abdominal mass or ascites noted and there is no inguinal adenopathy, Extremities - No edema, Neurologic - No focal neurologic deficits noted. Lab/Imaging: Test performed on Sep 30, 2021 12:00 Sodium 136 mmol/L Potassium 4.2 mmol/L Chloride 102 mmol/L CO2 21 mmol/L Anion Gap 17.2 BUN 16 mg/dL Creatinine 0.7 mg/dL Cr Clearance (Est) 92.6700 mL/min Glucose 82 mg/dL Osmolality - Calculated 282 mOsm/kg Calcium 8.7 mg/dL Protein, Total 7.0 g/dL Albumin 4.4 g/dL Globulin 2.6 g/dL Bilirubin, Total 0.5 mg/dL ALT (SGPT) 10 U/L AST (SGOT) 13 U/L Alkaline Phosphatase 63 IU/L WBC 6.4 10 3/uL RBC 4.55 10 6/uL HGB 13.9 g/dL HCT 42.1 % MCV 92.5 fl MCH 30.5 pg MCHC 33.0 g/dL RDW 14.3 % Platelet Count 264 10 3/cmm MPV 10.4 fL Neutrophils 3.51 10 3/uL Lymphocytes 1.7 10 3/uL Monocytes 0.7 10 3/uL Eosinophils 0.3 10 3/uL Basophils 0.1 10 3/uL Neutrophil % 54.8 % Lymphocyte % 26.7 % Monocyte % 11.3 % Eosinophil % 5.0 % Basophils % 1.7 % NRBC % 0 % Problem List: 1. IgG kappa myeloma, stage III, with associated lytic bone involvement. 2. He has had no other significant ongoing medical illnesses. Problems Addressed with this Encounter and Plan: 1. Patient with IgG kappa myeloma, stage III. He has associated lytic bone involvement documented by PET/CT. His bone marrow aspiration/biopsy on 03/19/2021 showed 60 to 80% involvement of the marrow by plasma cell neoplasm. There was evidence of the t(4;14) translocation by FISH. On 04/01/2021 he began treatment with VRd, with the Revlimid dosage reduced at 10 mg daily on a 21/28-day schedule and the Velcade administered subcutaneously on days 1, 8, and 15. As of June 2021 he had completed 4 cycles of treatment. At that point he was showing a very good response with his M protein decreased to 0.2 g/dL. His treatment was then transitioned to maintenance Revlimid 10 mg daily on a 21/28-day schedule. During follow-up he has tolerated the maintenance Revlimid well. He continues to show very good response with his protein electrophoresis from 08/15/2021 showing further decline in his M protein to 0.1 g/dL. He will continue Revlimid 10 mg daily on a 21/28-day schedule. He continues aspirin prophylaxis. He will have a CBC checked prior to each 28-day cycle of Revlimid. I will see him again in 3 months. 2. He had associated lytic bone involvement. He has been on supportive therapy with denosumab injections. I will now reduce the frequency of the denosumab injections to every 3 months. 3. He has clinical evidence of goiter, which is more prominent on the right. I will check thyroid profile today and he will be scheduled for a thyroid ultrasound with his next visit. Signed By: Nolan Arrieta M.D. <<Signature on File>>
[2021-10-01 12:47] LABS: KAPPA LIGHT CHAIN, FREE, SERUM 27.5 mg/L (3.3-19.4); KAPPA/LAMBDA LIGHT CHAINS FREE 1.46 (0.26-1.65); LAMBDA LIGHT CHAIN, FREE, SERU 18.9 mg/L (5.7-26.3)
== END 2021-10-25 23:59 | disposition home or self-care (01) ==
LOC: ONCMED 06:28
PROVIDERS: PCP Family Medicine; Visit Provider Internal Medicine Medical Oncology
DX: Z51.11 Encounter for antineoplastic chemotherapy (principal); C90.00 Multiple myeloma not having achieved remission; C79.51 Secondary malignant neoplasm of bone; E04.1 Nontoxic single thyroid nodule; Z79.899 Other long term (current) drug therapy
CPT/HCPCS: 36415; 80053; 83883; 84155; 84165; 84439; 84443; 85025; 96372; 99215; J0897

== ENCOUNTER → 2021-10-31 08:10 | Outpatient (BNVA) | payer MEDICARE, SELFPAY | PROVIDERS: PCP Family Medicine; Visit Provider Internal Medicine Medical Oncology | DX: C90.00 Multiple myeloma not having achieved remission (principal) | CPT/HCPCS: 85025 ==

== ENCOUNTER → 2021-12-10 08:07 | Outpatient (BNVA) | payer MEDICARE, SELFPAY | PROVIDERS: PCP Family Medicine; Visit Provider Internal Medicine Medical Oncology | DX: C90.00 Multiple myeloma not having achieved remission (principal) | CPT/HCPCS: 85025 ==

== ENCOUNTER 2022-02-03 11:25 | Outpatient (CLI) | payer MEDICARE, SELFPAY ==
--- NOTE | 2022-02-03 11:46 | US_ITS ---
WS: [id number] THYROID ULTRASOUND (TI-RADS CRITERIA) History: Goiter. Technique: Ultrasound examination of the thyroid and adjacent soft tissues is performed. FINDINGS: Right lobe: 3.7 cm x 2.1 cm x 1.9 cm. Volume: 7.4 cm3. Mildly heterogeneous gland. Dominant nodule in the mid gland. Lymph nodes: None. NODULE: 1 Size: 1.8 x 1.6 x 2.4 cm. Location: Mid RIGHT Composition: Mixed cystic and solid (1) Echogenicity: Hypoechoic (2) Shape: Not taller than wide (0) Margins: Smooth (0) Echogenic foci: None (0) ACR TI-RADS total points: 3 ACR TI-RADS risk category: TR3 Left lobe: 3.2 cm x 1.2 cm x 1.2 cm. Volume: 2.4 cm3. Normal size and echotexture. No significant or dominant nodules are present. Lymph nodes: None. Isthmus: 0.1 cm. US/US thyroid [id number] Impression: TR 3 Recommendation:Follow-up ultrasound in 1, 3 and 5 years. This is a very complex cystic nodule. May be hemorrhagic nodule. PET/CT perform ed on 03/02/2021 was negative and nodule does appear more cystic or necrotic as c ompared to the prior PET/CT and CT from 02/19/2021. This nodule was present at t hat time.
== END 2022-02-03 11:26 | disposition home or self-care (01) ==
PROVIDERS: PCP Family Medicine; Visit Provider Internal Medicine Medical Oncology
DX: E04.1 Nontoxic single thyroid nodule (principal)
CPT/HCPCS: 76536

== ENCOUNTER 2022-03-11 15:30 | Oncology outpatient (recurring) (ONCR) | payer MEDICARE, SELFPAY ==
[2022-03-11 12:47] LABS: Basophils % 0.7 %; Eosinophils # 0.1 10^3/uL (0.0-0.8); Eosinophils % 1.8 %; Hematocrit 36.3 % (42.0-52.0); Hemoglobin 12.5 g/dL (11.7-16.6); Lymphocytes # 2.2 10^3/uL (0.8-4.8); Lymphocytes % 39.5 %; Mean Corpuscular HGB Conc 34.4 g/dL (30.0-36.0); Mean Corpuscular Hemoglobin 33.4 pg (28.0-34.0); Mean Corpuscular Volume 97.1 fl (80-94); Mean Platelet Volume 10.4 fL (7.4-10.4); Monocytes # 0.6 10^3/uL (0.2-0.9); Monocytes % 10.5 %; Neutrophils # 2.48 10^3/uL (1.8-7.7); Neutrophils % 45.7 %; Nucleated Red Blood Cells % 0 %; Platelet Count 124 10^3/cmm (130-400); Red Blood Count 3.74 10^6/uL (4.1-5.3); Red Cell Distribution Width 16.3 % (12.1-15.1); White Blood Count 5.4 10^3/uL (4.0-10.0)
[2022-03-11 13:09] LABS: Alanine Aminotransferase 26 U/L (0-41); Albumin Level 4.7 g/dL (3.5-5.2); Alkaline Phosphatase 41 IU/L (40-130); Aspartate Amino Transferase 29 U/L (0-40); Blood Urea Nitrogen 27 mg/dL (8-23); Calcium 9.6 mg/dL (8.5-10.5); Carbon Dioxide 24 mmol/L (22-29); Chloride 101 mmol/L (98-107); Glucose 112 mg/dL (65-115); Osmolality Calculated 274 mOsm/kg (285-295); Sodium 129 mmol/L (136-145); Total Bilirubin 1.9 mg/dL (0.15-1.2)
[2022-03-11 13:14] LABS: Anion Gap 8.1 (5-19); Potassium 4.1 mmol/L (3.5-5.1)
[2022-03-11 13:30] LABS: Globulin 8.9 g/dL (1.3-4.6)
[2022-03-11 13:32] LABS: Total Protein 13.6 g/dL (6.6-8.7)
[2022-03-11 13:35] LABS: Slide Review Slide Review Perform
[2022-03-11 13:37] LABS: Immunoglobulin IGM 25 mg/dL (40-230)
[2022-03-11 13:53] LABS: Immunoglobulin IGG 7431 mg/dL (700-1600)
[2022-03-11 13:54] LABS: Immunoglobulin IGA < 50 mg/dL (70-400)
[2022-03-11] MEDS: denosumab 120 mg SDV SUBCUT (15:55)
--- NOTE | 2022-03-11 15:58 | XRR_ITS ---
PROCEDURE INFORMATION: Exam: XR Osseous Survey; Complete Axial And Appendicular Skeleton Exam date and time: 03/11/2022 3:57 PM Age: 81 years old Clinical indication: Pain and injury or trauma and condition or disease; Fall; Work related; Injury: Right side rib pain, low back pain; Condition/disease: Myeloma; Pain: Bone; Prior surgery; Surgery type: Bilateral feet; Additional info: Myeloma relapse; Bone pain TECHNIQUE: Imaging protocol: Radiological examination. Complete osseous survey. Axial and appendicular skeleton. COMPARISON: MR ankle LT wo con* [id number] 02/23/2020 11:35 AM FINDINGS: Bones/joints: A few small lytic foci in the right humeral shaft marrow. No large lytic mass in the ribs or other bones. Slight spondylolisthesis at C5-C6 and C6-C7. Mild S-shaped thoracolumbar scoliosis; centering of the right convexity at the level of the moderate T10 compression fracture. Multiple old-appearing compression fractures. Increased kyphosis. Slight spondylolisthesis at L5-S1. Several right lower rib fractures, exact age unclear. Probable old fracture of the proximal right 5th rib. Healed fracture of the left fibular proximal shaft. At least mild left convexity of the left proximal to mid femoral shaft associated with cortical buttressing medially and 2 separate areas of linear lucency coursing perpendicularly through the lateral cortex. No diffuse osteopenia. Soft tissues: No apparent mass. XR/XR bone survey* [id number] IMPRESSION: 1. Small lytic foci in the right humeral shaft marrow possibly due to multiple myeloma. No large lytic mass in the bones. 2. Several right lower rib fractures of uncertain age. Probable old fracture of the proximal right 5th rib. 3. Left femoral shaft abnormalities suggestive of ongoing insufficiency fractures. 4. Multiple old-appearing compression fractures. Other findings detailed above.
[2022-03-12 10:52] LABS: PROTEIN, TOTAL 13.2 g/dL (6.1-8.1)
[2022-03-12 11:52] LABS: KAPPA LIGHT CHAIN, FREE, SERUM 1060.2 mg/L (3.3-19.4); KAPPA/LAMBDA LIGHT CHAINS FREE 107.09 (0.26-1.65); LAMBDA LIGHT CHAIN, FREE, SERU 9.9 mg/L (5.7-26.3)
[2022-03-12 16:41] LABS: ABNORMAL PROTEIN BAND 1 5.7 g/dL (NONE DETECTED); ALBUMIN 5.6 g/dL (3.8-4.8); ALPHA 1 GLOBULIN 0.3 g/dL (0.2-0.3); ALPHA 2 GLOBULIN 0.7 g/dL (0.5-0.9); BETA 1 GLOBULIN 0.5 g/dL (0.4-0.6); BETA 2 GLOBULIN 0.2 g/dL (0.2-0.5); GAMMA GLOBULIN 5.9 g/dL (0.8-1.7)
== END 2022-03-25 23:59 | disposition home or self-care (01) ==
PROVIDERS: Visit Provider Nurse Practitioner Family
DX: Z51.11 Encounter for antineoplastic chemotherapy (principal); C90.00 Multiple myeloma not having achieved remission; C79.51 Secondary malignant neoplasm of bone; G89.3 Neoplasm related pain (acute) (chronic); Z79.899 Other long term (current) drug therapy
CPT/HCPCS: 77075; 80053; 82784; 83883; 84155; 84165; 85025; 96372; 96401; 99215; 99999; J0897

== ENCOUNTER 2022-04-01 12:27 | Oncology outpatient (recurring) (ONCR) | payer MEDICARE, SELFPAY ==
[2022-04-01 12:55] LABS: Hematocrit 32.2 % (42.0-52.0); Hemoglobin 10.8 g/dL (11.7-16.6); Mean Corpuscular HGB Conc 33.5 g/dL (30.0-36.0); Mean Corpuscular Hemoglobin 33.8 pg (28.0-34.0); Mean Corpuscular Volume 100.6 fl (80-94); Mean Platelet Volume 9.1 fL (7.4-10.4); Platelet Count 129 10^3/cmm (130-400); White Blood Count 7.1 10^3/uL (4.0-10.0)
[2022-04-01 14:41] LABS: Slide Review Slide Review Perform
[2022-04-01 15:42] LABS: Alanine Aminotransferase 40 U/L (0-41); Albumin Level 4.2 g/dL (3.5-5.2); Alkaline Phosphatase 37 IU/L (40-130); Anion Gap 9.2 (5-19); Aspartate Amino Transferase 34 U/L (0-40); Blood Urea Nitrogen 15 mg/dL (8-23); Calcium 8.7 mg/dL (8.5-10.5); Carbon Dioxide 19 mmol/L (22-29); Chloride 100 mmol/L (98-107); Glucose 115 mg/dL (65-115); Osmolality Calculated 260 mOsm/kg (285-295); Potassium 4.2 mmol/L (3.5-5.1); Sodium 124 mmol/L (136-145)
[2022-04-01 16:11] LABS: Total Bilirubin 1.2 mg/dL (0.15-1.2)
[2022-04-01 16:12] LABS: Globulin 11.8 g/dL (1.3-4.6)
[2022-04-01 16:46] LABS: Absolute Segmented Neutrophil 2.3 10/cmm (1.6-7.1); Eosinophils 1 %; Lymphocytes 22 %; Lymphocytes Absolute 4.3 10^3/cmm (1.2-3.4); Monocytes Absolute 0.4 10^3/cmm (0.1-0.6); Segmented Neutrophils 32 %; Total Cells Counted 100 (0-100)
[2022-04-01 16:47] LABS: Absolute Neutrophil 2.3 10^3/cmm (1.4-6.5); Pathology Refferal Yes; Platelet Estimate Normal (Normal)
== END 2022-04-01 23:59 | disposition home or self-care (01) ==
PROVIDERS: Visit Provider Nurse Practitioner Family
DX: C90.00 Multiple myeloma not having achieved remission (principal); C79.51 Secondary malignant neoplasm of bone; Z79.52 Long term (current) use of systemic steroids; Z79.899 Other long term (current) drug therapy
CPT/HCPCS: 80053; 80503; 85007; 85025; 99214

== ENCOUNTER 2022-04-17 10:33 | Observation (INO) | payer MEDICARE, SELFPAY ==
[2022-04-17] VITALS (16 sets, daily range): BP systolic 100–163; BP diastolic 54–97; PULSE 69–107; RESP 16–20; TEMP 36.4–36.5; O2SAT 92–99; BMI 25.8; BMI 19.8
--- NOTE | 2022-04-17 10:57 | ED_ITS ---
HPI - Abdominal Pain General: Chief Complaint: Abdominal Pain Stated Complaint: weakness Time Seen by Provider: 04/17/22 10:57 History of Present Illness: Mr. Vieyra is a 81-year-old gentleman with significant past medical history of multiple myeloma currently on therapy who presents to the emergency department due to constipation. He reports symptom onset approximately 1 week ago and since that time has had abdominal cramping which has been constant. Additionally has had no bowel movement. He reports normal urination, no nausea though he has had vomiting. Intensity symptoms is moderate. Course has persisted. No other specific changes in health, exacerbating, or alleviating factors identified. Onset (ago): week(s) Pain Consistency: constant Location: Diffuse Severity: moderate Exacerbating factors: eating Review of Systems General: Reports: 10 or more systems reviewed and unremarkable except in HPI and below PFSH ED PFSH: Medical History IgG myeloma Surgical History (Updated 04/27/22 @ 18:53 by Nolan Arrieta MD) H/O left inguinal hernia repair History of bone marrow biopsy (03/19/21) Bone marrow aspiration/biopsy Family History Mother Clotting disorder Family/Other Lung disease Uncle - Tuberculosis Denies family history of Diabetes CAD (coronary artery disease) Dementia Hyperlipidemia Psychiatric illness Chronic kidney disease (CKD) Suicide Anesthesia complication Bleeding disorder Hypertension Stroke Social History Smoking and tobacco status: never smoked Alcohol intake: never Physical Exam Const: COMMON NORMALS: alert GENERAL APPEARANCE: cooperative, well developed and ill appearing (Chronically) HENMT: COMMON NORMALS: normocephalic and atraumatic HEAD & SCALP: normoce phalic and atraumatic Eye: COMMON NORMALS: conjunctivae normal CONJUNCTIVA: Yes conjunctivae normal SCLERA: sclerae normal Neck/C-Spine: COMMON NORMALS: supple GENERAL: Yes trachea midline Resp: COMMON NORMALS: normal respiratory effort EFFORT & INSPECTION: Yes able to speak in complete sentences Cardio: COMMON NORMALS: regular rate and regular rhythm RATE: regular rate RHYTHM: regular rhythm GI: COMMON NORMALS: Soft to palpation PALPATION: Yes Soft to palpation, Yes Tenderness to palpation present (GI), No Guarding due to palpation present (GI) and No Rigid due to palpation PERCUSSION: normal to percussion Extremity: GENERAL: Yes normal exam except as noted and No edema Neuro: COMMON NORMALS: moves all extremities SENSORIUM/ORIENTATION: Yes alert and No Orientation impaired Psych: COMMON NORMALS: mental status grossly normal and Normal thought process present THOUGHT PROCESS: Normal thought process present Course ED course: - Patient was seen and evaluated by me at bedside - Patient placed on cardiac monitors, IV access obtained - Initial evaluation notable for exam as above - Labs personally interpreted by me - Analgesia given - Labs notable for leukopenia, macrocytic anemia. Metabolic panel with chronic hyponatremia. - Imaging notable for constipation and likely early partial small bowel obstruction versus enteritis. - Upon serial reexamination after treatment the patient was similar despite treatment. Patient did not have improvement with treatment for constipation. Given severity of symptoms and overall clinical context I believe that the patient requires inpatient observation. - Based on patient history, evaluation, and testing as interpreted the most likely cause of the patient's condition is enteritis versus early small bowel obstruction with constipation - The results of ED evaluation were discussed with the patient including plan for admission due to requirement for level of care not available if discharged to prevent significant worsening/deterioration. - Admitting service was contacted and Dr Leary with the hospitalist service agreed to admit the patient - Patient was admitted without further deterioration or significant events. Note: Click bubbles or prepopulated ruiz in note writing are used for assistance with data collection and billing and are inherently more limited than narrative and other text portions of this note. Please use narrative for additional clinical history and defer to narrative/free test for any case of contradictory information. If information appears in only free text or click bubble it should be considered present or absent as reported. Please contact note global technical writer for clarifications of clinical information or contradictory information. MDM is a brief summary, contradictory or erroneous seeming information should be clarified and full note should be reviewed. Vital Signs: Vital signs: Vital Signs Temperature 97.3 F L 04/18/22 17:43 Pulse Rate 78 04/18/22 17:43 Respiratory Rate 16 04/18/22 17:43 Blood Pressure 127/66 04/18/22 17:43 Pulse Oximetry 94 04/18/22 17:43 MDM - Abdominal Pain Medical Decision Making 81-year-old gentleman with history of myeloma presenting with abdominal/GI symptoms. Patient found to have constipation with early small bowel obstruction versus enteritis. Admitted for observation and treatment on antibiotics with bowel regimen. Medical Records I reviewed the patient's medical records. Lab Data I reviewed the patient's lab results. : 04/18/22 05:01 04/18/22 05:01 Labs/Radiology: Radiology Impressions Abdomen/Pelvis CT 04/17/22 11:07 IMPRESSION: 1. Rectal distention with dense constipation. Mild RIGHT colon constipation. 2. A few air-fluid levels in the RIGHT lower quadrant small bowel with mild distention. No evidence of high-grade obstruction. Terminal ileum appears decompressed. Recommend correlation for small bowel enteritis or early partial small bowel obstruction. 3. Multiple lytic lesions compatible with history of multiple myeloma with chronic compression fractures in the lower thoracic spine described above Discharge Plan Discharge Patient Disposition: Placed in Observation Admit Provider: Darrian Leary Clinical Impression: Enteritis, Constipation Discharge Diet: As Directed Discharge Activity: Use walker/crutches as instructed and As per PT/OT instructions Coding Level of Care Code ED Relationship Banker for Chg Fwd Exam Comprehensive
--- NOTE | 2022-04-17 11:07 | CT_ITS ---
WS: [id number] CT ABDOMEN PELVIS TECHNIQUE: Contrast-enhanced CT of the abdomen and pelvis with coronal and sagittal reformatted image s. CLINICAL INFORMATION: obstipation 1 week, abdominal pain COMPARISON: PET/CT March 02, 2021 DLP: 1313.[address] scans at [facility] use at least one of these dose optimization techniques: automated e xposure control; mA and/or kV adjustment per patient size (includes targeted exams where dose is matc hed to clinical indication); or iterative reconstruction. FINDINGS: Some images degraded by motion. Lung bases are well aerated. Mild diffuse fatty infiltration the liver. Normal spleen. Normal GE junc tion. Proximal stomach appears normal. Adrenal glands are normal. No hydronephrosis in either kidney. Small RIGHT renal cyst. Normal renal parenchymal enhancement. Normal pancreatic parenchymal enhancem ent. Normal caliber abdominal aorta. Mild aortic calcification. Celiac and SMA appear patent with mil d narrowing of the origin. Splenic vein appears patent. Rectal constipation with rectal distention. Sigmoid diverticuli. No evidence of acute diverticulitis. Mild RIGHT colon constipation. A few air-fluid levels in the RIGHT lower quadrant small bowel with m ild distention. No evidence of high-grade obstruction. Multiple lytic lesions compatible with history of multiple myeloma. Chronic compression with anterior wedging in the lower thoracic spine at T8-T10. CT/CT abdomen pelvis w con* [id number] IMPRESSION: 1. Rectal distention with dense constipation. Mild RIGHT colon constipation. 2. A few air-fluid levels in the RIGHT lower quadrant small bowel with mild di stention. No evidence of high-grade obstruction. Terminal ileum appears decompr essed. Recommend correlation for small bowel enteritis or early partial small b owel obstruction. 3. Multiple lytic lesions compatible with history of multiple myeloma with chr onic compression fractures in the lower thoracic spine described above
[2022-04-17] MEDS: iohexol 350 mg/mL 100 mL Btl IV (12:00)
[2022-04-17] MEDS: magnesium hydroxide 30 mL UDC PO (14:06)
[2022-04-17] MEDS: lactulose oral liq 20 gm/30 mL UDC PO (14:06)
[2022-04-17] MEDS: Fleet Enema 133 mL Enema PR (14:06)
--- NOTE | 2022-04-17 18:39 | PM.HP ---
Providers/Chief Complaint Chief Complaint: weakness History of Present Illness Pleasant 81-year-old gentleman with multiple myeloma, on treatment, has been having declining appetite, has not had a bowel movement in a while , in general also has been somewhat weaker, states her energy make himself rule out of bed at home where he lives by himself. Was directed today to ER for additional assessment due to abdominal pain, constipation, recent lab work also shows neutropenia, ANC 630. Noted hyponatremia, without change in 24. BUN 25, creatinine 0.9. He states at home he tries to bring in sugar, but appetite has been very poor. Did not receive any treatment today. He does report taking hydrocodone's for pain at home. In ER he was additionally evaluated with CT abdomen pelvis with finding of rectal distention with dense constipation. Mild right colon constipation. A few air-fluid levels in the right lower quadrant small bowel with mild distention no evidence of high-grade obstruction. Terminal ileum appears decompressed. Recommend correlation for small bowel enteritis or early partial small bowel obstruction. Multiple lytic lesions compatible with history of multiple myeloma with chronic compression fractures in lower thoracic spine. In ER he received sodium phosphate enema though so far without success with bowel movement. Empirically started on ceftriaxone, Flagyl. Review of Systems Const: Reports: change in appetite; Denies: fever(s), chills, body aches or malaise Eyes: Denies: change in vision, eye discomfort or eye redness ENMT: Denies: throat pain, oral sores or ear or mastoid pain Card: Reports: dyspnea on exertion; Denies: chest pain, edema or pre-syncope Resp: Denies: dyspnea, productive cough, change in phlegm color or hemoptysis GI: Reports: abdominal pain and constipation; Denies: nausea, vomiting, diarrhea, hematochezia or melena : Denies: flank pain, difficulty urinating, urinary frequency or hematuria Musc: Denies: back pain, joint swelling or joint redness Skin/Breast: Denies: rash or new lesions Neuro: Denies: headache(s), numbness in extremities, weakness in extremities, dizziness, confusion or seizure-like activity Endo: Denies: polyuria or polydipsia Aron/Lymph: Denies: easy bleeding or tender lymph nodes All/Imm: Denies: urticaria or tongue swelling Medications/Allergies Home Medications Medication Instructions Recorded Confirmed Last Taken Type Cam Walker #1 each 02/14/20 04/17/22 Unknown Rx aspirin 81 mg tablet,delayed 81 mg PO DAILY 03/11/22 04/17/22 Unknown History release dexamethasone 4 mg tablet 20 mg PO .qweek #60 tab 04/01/22 04/17/22 Unknown Rx fluconazole 100 mg tablet 100 mg PO DAILY #90 tab 04/01/22 04/17/22 Unknown Rx (Diflucan) hydrocodone 5 mg-acetaminophen 325 1 tab PO Q6H PRN 7 Days #30 tab 04/01/22 04/17/22 Unknown Rx mg tablet lorazepam 1 mg tablet 0.5 - 1 mg PO Q6H PRN #30 tab 04/01/22 04/17/22 Unknown Rx prochlorperazine maleate 10 mg 10 mg PO Q4H PRN #30 tab 04/01/22 04/17/22 Unknown Rx tablet (Compazine) sulfamethoxazole 800 1 tab PO MOWEFR #24 tab 04/01/22 04/17/22 Unknown Rx mg-trimethoprim 160 mg tablet (Bactrim DS) valacyclovir 500 mg tablet 500 mg PO BID #60 tab 04/01/22 04/17/22 Unknown Rx walker #1 ea 04/10/22 04/17/22 Unknown Rx Allergies Allergy/AdvReac Type Severity Reaction Status Date / Time No Known Allergies Allergy Verified 04/17/22 09:52 PFSH Acute PFSH: Medical History IgG myeloma Family History Mother Clotting disorder Family/Other Lung disease Uncle - Tuberculosis Denies family history of Diabetes CAD (coronary artery disease) Dementia Hyperlipidemia Psychiatric illness Chronic kidney disease (CKD) Suicide Anesthesia complication Bleeding disorder Hypertension Stroke Social History Smoking and tobacco status: never smoked Alcohol intake: never Vitals/I&O/Wt Last Vital Signs Temp 97.7 F 04/17/22 10:45 Pulse 69 04/17/22 16:00 Resp 16 04/17/22 10:45 BP 158/93 04/17/22 17:00 Pulse Ox 92 04/17/22 17:00 Weight last 48 hrs Weight 77.111 kg Physical Exam Narrative: Ex- accompanying him at the bedside Const: COMMON NORMALS: alert GENERAL APPEARANCE: cooperative and frail appearing NUTRITIONAL APPEARANCE: thin ORIENTATION/CONSCIOUSNESS: Yes awake OTHER: [place] HENMT: COMMON NORMALS: normocephalic, EAC's normal and Normal external nose present HEAD & SCALP: normocephalic NOSE: Normal external nose present EXTERNAL AUDITORY CANAL: EAC's normal OTHER: Dry MM Neck/C-Spine: COMMON NORMALS: no meningeal signs Chest: CHEST: Yes Symmetrical chest wall rise Resp: COMMON NORMALS: clear to auscultation bilaterally AUSCULTATION: clear to auscultation bilaterally Cardio: COMMON NORMALS: regular rate, regular rhythm and No murmurs present (Cardio) RATE: regular rate RHYTHM: regular rhythm GI: COMMON NORMALS: Normal to inspection, nondistended, normoactive bowel sounds present and Soft to palpation PALPATION: Yes Soft to palpation and Yes Tenderness to palpation present (GI) (mid abdomen) Extremity: COMMON NORMALS: no pedal edema Neuro: COMMON NORMALS: moves all extremities SENSORIUM/ORIENTATION: Yes alert MENINGEAL SIGNS: Yes no meningeal signs Psych: COMMON NORMALS: mental status grossly normal Skin: COMMON NORMALS: no wounds RASHES: no rashes A&P Assessment and plan (1) Constipation: So far no success after enema. Add bowel regimen. Discussed also Relistor as he does take opioids for pain. LR IV for dehydration. Status: Acute (2) Enteritis: Possible enteritis in the setting of neutropenia, continue empiric Cipro, Flagyl. Status: Acute (3) Neutropenia: Reverse isolation. Neutropenic diet. Reassess blood counts. Status: Acute (4) IgG myeloma: Did not receive treatment today. Status: Acute (5) Physical deconditioning: Reports recently has been growing weaker. Has been more difficult for him to get out of bed, states he has been making bisoprolol out, not getting up. Will obtain PT, OT assessment. Has been having poor appetite recently as well. Discussed with him starting appetite stimulant. He does take some Ensure at home, continue protein supplements. Status: Acute Attestations Medical Necessity Statement*: Place in observation for additional assessment of abdominal pain, consider constipation, enteritis in a gentleman with multiple myeloma, poor appetite and oral intake, functional decline. Coding Level of Care Code Acute Forestry Farm Laborer for Chg Fwd Diagnoses Constipation K59.00 Enteritis K52.9 Neutropenia D70.9 IgG myeloma C90.00 Physical deconditioning R53.81
[2022-04-17] MEDS: dronabinol 2.5 mg Capsule 5 MG PO (22:07)
[2022-04-17] MEDS: methylnaltrexone 12 /0.6 mL INJ 12 MG SUBCUT (22:07)
[2022-04-17] MEDS: enoxaparin 30 mg/0.3 mL Syringe SUBCUT (22:07)
[2022-04-17] MEDS: bisacodyl 10 mg Supp PR (22:08)
[2022-04-17] MEDS: ciprofloxacin 400 MG/200 ML PREMIX 200 MG IV (22:09)
[2022-04-17] MEDS: lactated ringers 1,000 ML 75 ML IV (22:10)
[2022-04-17] MEDS: metroNIDAZOLE IV 500 MG/100 ML PREMIX 100 MG IV (23:36)
[2022-04-18 00:26] VITALS: BP 129/69; PULSE 82; RESP 19; TEMP 36.8; O2SAT 95
[2022-04-18 04:01] VITALS: BP 129/57; PULSE 71; RESP 16; TEMP 36.7; O2SAT 95
[2022-04-18 05:05] VITALS: BMI 19.8
[2022-04-18 06:26] LABS: Hematocrit 27.2 % (42.0-52.0); Hemoglobin 9.9 g/dL (11.7-16.6); Lymphocytes # 0.3 10^3/uL (0.8-4.8); Lymphocytes % 32.7 %; Mean Corpuscular HGB Conc 36.4 g/dL (30.0-36.0); Mean Corpuscular Hemoglobin 33.8 pg (28.0-34.0); Mean Corpuscular Volume 92.8 fl (80-94); Mean Platelet Volume 10.5 fL (7.4-10.4); Monocytes # 0.2 10^3/uL (0.2-0.9); Monocytes % 21.2 %; Neutrophils % 42.2 %; Nucleated Red Blood Cells % 0 %; Platelet Count 102 10^3/cmm (130-400); Red Blood Count 2.93 10^6/uL (4.1-5.3); Red Cell Distribution Width 14.7 % (12.1-15.1)
[2022-04-18 06:56] LABS: Alanine Aminotransferase 39 U/L (0-41); Albumin Level 3.1 g/dL (3.5-5.2); Alkaline Phosphatase 49 IU/L (40-130); Anion Gap 11.7 (5-19); Aspartate Amino Transferase 13 U/L (0-40); Blood Urea Nitrogen 25 mg/dL (8-23); Calcium 7.5 mg/dL (8.5-10.5); Carbon Dioxide 22 mmol/L (22-29); Chloride 95 mmol/L (98-107); Globulin 4.6 g/dL (1.3-4.6); Glucose 84 mg/dL (65-115); Osmolality Calculated 262 mOsm/kg (285-295); Potassium 4.7 mmol/L (3.5-5.1); Sodium 124 mmol/L (136-145); Thyroid Stimulating Hormone 6.77 uIU/mL (0.27-4.20); Total Bilirubin 1.3 mg/dL (0.15-1.2); Total Protein 7.7 g/dL (6.6-8.7)
[2022-04-18 07:20] LABS: Slide Review Slide Review Perform
[2022-04-18 07:22] LABS: Neutrophils # 0.44 10^3/uL (1.8-7.7)
[2022-04-18 07:25] VITALS: BP 131/68; PULSE 64; RESP 18; TEMP 36.6; O2SAT 94
[2022-04-18] MEDS: aspirin 81 mg EC Tablet PO (08:41)
[2022-04-18] MEDS: valACYclovir 1,000 mg Tablet 500 MG PO (08:42)
[2022-04-18] MEDS: polyethylene glycol 3350 Pkt 17 gm PO (08:42)
[2022-04-18] MEDS: fluconazole 100 mg Tablet PO (08:42)
[2022-04-18] MEDS: metroNIDAZOLE IV 500 MG/100 ML PREMIX 100 MG IV (08:42)
[2022-04-18 10:32] LABS: Free T4 Free Thyroxine 0.93 ng/dL (0.82-1.77)
--- NOTE | 2022-04-18 11:00 | PC.CHAP ---
Pastoral Care Encounter/Spiritual Assessment Type of Contact [] Declined library clerk talking books visit [] Patient/Family/Request visit [] Outpatient visit [] Follow-up visit [] Physician referral [] Code/Alert [x] Routine visit [] Staff referral [] Actively dying [] Patient sleeping [] Family support [] [] Out of room [] Palliative care [] [x] Receiving care in room [] Pre-surgical visit [] Trauma [] Long length of stay [] ICU visit [] Other: Relational/Emotional Strength [] Patient feels connected with others/family/visitors/staff [] Distress [] Loneliness/isolation [] Abandonment Spirituality of Patient [] Person of Gretchen [] Attends Evangelical of their Gretchen [] Believes in Prayer [] Reads Bible or Faith materials [] There are Spiritual issues to be addressed School Speech Language Pathologist Interventions [] Prayer [] Active listening [] Non-anxious presence [] Spiritual/emotional support [] Crisis/trauma care [] Spiritual counseling [] Bereavement support [] Provided bereavement packet [] Provided Bible/devotional materials [] Provided toy/stuffed animal, coloring book to patient or family member [] Provided Communion [] Anointing/[place] [] Salvation [] Completed spiritual assessment [] Other: Impact on Illness or Injury [] Angry [] Fearful [] Anxious [] Often cries [] Exhaustion [] Unable to work [] Unable to attend adventism [] Unable to walk/stand [] Unable to read [] Unable to drive [] Unable to eat/drink [] Unable to sleep [] Unable to be with family [] Patient intubated [] Other: Summary Time spent with patient
[2022-04-18 11:23] VITALS: BP 127/66; PULSE 78; RESP 16; TEMP 36.3; O2SAT 94
[2022-04-18] MEDS: dronabinol 2.5 mg Capsule 5 MG PO (11:38)
[2022-04-18] MEDS: ciprofloxacin 400 MG/200 ML PREMIX 200 MG IV (11:39)
[2022-04-18] MEDS: acetaminophen 325 mg Tablet 650 MG PO (13:17)
[2022-04-18] MEDS: lactated ringers 1,000 ML 75 ML IV (14:29)
--- NOTE | 2022-04-18 15:24 | P.DS_ITS ---
Discharge Providers Date of Admission: 04/17/22 18:02 Date of Discharge: April 18, 2022 Attending Provider at Admission: Darrian Leary Attending Provider at Discharge: Darrian Leary Diagnoses at Discharge Discharge Diagnosis (1) Constipation: Status: Acute (2) Enteritis: Status: Acute (3) Neutropenia: Status: Acute (4) IgG myeloma: Status: Acute (5) Physical deconditioning: Status: Acute Reason for Visit Reason for Visit: weakness Brief History: Pleasant 81-year-old gentleman with multiple myeloma, on treatment, has been having declining appetite, has not had a bowel movement in a while , in general also has been somewhat weaker, states her energy make himself roll out of bed at home where he lives by himself.? Was directed today to ER for additional assessment due to abdominal pain, constipation, recent lab work also shows neutropenia, ANC 630.? Noted hyponatremia, without change in 24.? BUN 25, creatinine 0.9.? He states at home he tries to bring in sugar, but appetite has been very poor.? Did not receive any treatment today. He does report taking hydrocodone's for pain at home. In ER he was additionally evaluated with CT abdomen pelvis with finding of rectal distention with dense constipation.? Mild right colon constipation.? A few air-fluid levels in the right lower quadrant small bowel with mild distention no evidence of high-grade obstruction.? Terminal ileum appears decompressed.? Recommend correlation for small bowel enteritis or early partial small bowel obstruction.? Multiple lytic lesions compatible with history of multiple myeloma with chronic compression fractures in lower thoracic spine. In ER he received sodium phosphate enema though so far without success with bowel movement.? Empirically started on ceftriaxone, Flagyl. Hospital Course Hospital Course He has remained afebrile, although still neutropenic, ANC 440. Continues on antibiotics, he will complete antibiotic course with ciprofloxacin and Flagyl. He has had several bowel movements now, but still needs to escalate bowel regimen as he has had none previously, and has been additionally taking opioids chronically for lower back pain. He was given 1 dose of Relistor here. Started additionally on MiraLAX, Dulcolax suppositories were provided. Consider Movantik, although cautiously there may be interaction with Diflucan. Received gentle IV rehydration. Avoid dehydration. Please revisit his poor appetite as well, he is started on dronabinol. He would benefit from additional rehabilitation, recently with functional decline, although he and his daughter prefer to return home at this time where she provides assistance for him, they are agreeable to being set up with home health. Incidentally noted subclinical hypothyroidism, TSH 6.77, free T4 0.93. Please follow-up thyroid function studies. Physical Exam Const: COMMON NORMALS: alert GENERAL APPEARANCE: cooperative and frail appearing NUTRITIONAL APPEARANCE: thin ORIENTATION/CONSCIOUSNESS: Yes awake OTHER: UPPER [place] HENMT: COMMON NORMALS: normocephalic, EAC's normal and Normal external nose present HEAD & SCALP: normocephalic NOSE: Normal external nose present EXTERNAL AUDITORY CANAL: EAC's normal Neck/C-Spine: COMMON NORMALS: no meningeal signs Chest: CHEST: Yes Symmetrical chest wall rise Resp: COMMON NORMALS: clear to auscultation bilaterally AUSCULTATION: clear to auscultation bilaterally Cardio: COMMON NORMALS: regular rate, regular rhythm and No murmurs present (Cardio) RATE: regular rate RHYTHM: regular rhythm GI: COMMON NORMALS: Normal to inspection, nondistended, normoactive bowel sounds present and Soft to palpation PALPATION: Yes Soft to palpation and Yes Tenderness to palpation present (GI) (mid abdomen) Extremity: COMMON NORMALS: no pedal edema Neuro: COMMON NORMALS: moves all extremities SENSORIUM/ORIENTATION: Yes alert MENINGEAL SIGNS: Yes no meningeal signs Psych: COMMON NORMALS: mental status grossly normal Skin: COMMON NORMALS: no wounds RASHES: no rashes Discharge Data Studies Completed and Pending Completed Studies During Hospitalization Category Date Time Status CT abdomen pelvis w con* [id number] Stat Cat Scan 04/17/22 11:07 Completed Pending at discharge Category Date Time Status Blood Culture Stat Lab 04/17/22 19:01 Results Complete Blood Count w/Auto AM LABS Lab 04/19/22 04:00 Ordered Complete Blood Count w/Auto AM LABS Lab 04/20/22 04:00 Ordered Comprehensive Metabolic Panel AM LABS Lab 04/19/22 04:00 Ordered Comprehensive Metabolic Panel AM LABS Lab 04/20/22 04:00 Ordered Radiology Impressions Abdomen/Pelvis CT 04/17/22 11:07 IMPRESSION: 1. Rectal distention with dense constipation. Mild RIGHT colon constipation. 2. A few air-fluid levels in the RIGHT lower quadrant small bowel with mild distention. No evidence of high-grade obstruction. Terminal ileum appears decompressed. Recommend correlation for small bowel enteritis or early partial small bowel obstruction. 3. Multiple lytic lesions compatible with history of multiple myeloma with c hronic compression fractures in the lower thoracic spine described above Laboratory Results WBC 1.0 10^3/uL (4.0-10.0) L 04/18/22 05:01 RBC 2.93 10^6/uL (4.1-5.3) L 04/18/22 05:01 Hgb 9.9 g/dL (11.7-16.6) L 04/18/22 05:01 Hct 27.2 % (42.0-52.0) L 04/18/22 05:01 MCV 92.8 fl (80-94) 04/18/22 05:01 MCH 33.8 pg (28.0-34.0) 04/18/22 05:01 MCHC 36.4 g/dL (30.0-36.0) H 04/18/22 05:01 RDW 14.7 % (12.1-15.1) 04/18/22 05:01 Plt Count 102 10^3/cmm (130-400) L 04/18/22 05:01 MPV 10.5 fL (7.4-10.4) H 04/18/22 05:01 Neut % (Auto) 42.2 % 04/18/22 05:01 Lymph % (Auto) 32.7 % 04/18/22 05:01 [place] % (Auto) 21.2 % 04/18/22 05:01 Eos % (Auto) 1.0 % 04/18/22 05:01 Baso % (Auto) 0.0 % 04/18/22 05:01 Neut # (Auto) 0.44 10^3/uL (1.8-7.7) L* 04/18/22 05:01 Lymph # (Auto) 0.3 10^3/uL (0.8-4.8) L 04/18/22 05:01 [place] # (Auto) 0.2 10^3/uL (0.2-0.9) 04/18/22 05:01 Eos # (Auto) 0.0 10^3/uL (0.0-0.8) 04/18/22 05:01 Baso # (Auto) 0.0 10^3/uL (0.0-0.1) 04/18/22 05:01 Nucleated RBC % (auto) 0 % 04/18/22 05:01 Nucleated RBCs # 0.0 /100WBC 04/18/22 05:01 Sodium 124 mmol/L (136-145) L 04/18/22 05:01 Potassium 4.7 mmol/L (3.5-5.1) 04/18/22 05:01 Chloride 95 mmol/L (98-107) L 04/18/22 05:01 Carbon Dioxide 22 mmol/L (22-29) 04/18/22 05:01 Anion Gap 11.7 (5-19) 04/18/22 05:01 BUN 25 mg/dL (8-23) H 04/18/22 05:01 Creatinine 0.8 mg/dL (0.7-1.2) 04/18/22 05:01 GFR Calculation Not Reportable 04/18/22 05:01 Glucose 84 mg/dL (65-115) 04/18/22 05:01 Calculated Osmolality 262 mOsm/kg (285-295) L 04/18/22 05:01 Calcium 7.5 mg/dL (8.5-10.5) L 04/18/22 05:01 Total Bilirubin 1.3 mg/dL (0.15-1.2) H 04/18/22 05:01 AST 13 U/L (0-40) 04/18/22 05:01 ALT 39 U/L (0-41) 04/18/22 05:01 Alkaline Phosphatase 49 IU/L (40-130) 04/18/22 05:01 Total Protein 7.7 g/dL (6.6-8.7) 04/18/22 05:01 Albumin 3.1 g/dL (3.5-5.2) L 04/18/22 05:01 Globulin 4.6 g/dL (1.3-4.6) 04/18/22 05:01 TSH 6.77 uIU/mL (0.27-4.20) H 04/18/22 05:01 Free T4 0.93 ng/dL (0.82-1.77) 04/18/22 05:01 Vitals Last Vital Signs Temp 97.3 F L 04/18/22 11:23 Pulse 78 04/18/22 11:23 Resp 16 04/18/22 11:23 BP 127/66 04/18/22 11:23 Pulse Ox 94 04/18/22 11:23 Discharge Plan Discharge Patient Disposition: Home Health Service Condition: Stable Prescriptions: New dronabinol 2.5 mg Capsule 5 mg PO BIDAC Qty: 180 0RF polyethylene glycol 3350 17 gram Powder In Packet 17 g PO BID Qty: 180 0RF bisacodyl [Dulcolax (bisacodyl)] 10 mg suppository 10 mg [place] DAILY PRN (Reason: constipation) Qty: 30 3RF ciprofloxacin HCl 500 mg tablet 500 mg PO BID Qty: 14 0RF metronidazole 500 mg tablet 500 mg PO Q8H 7 Days Qty: 21 0RF Continued (DME) Cam Walker Qty: 1 0RF Rx Instructions: As directed aspirin 81 mg tablet,delayed release (DR/EC) 81 mg PO DAILY 0RF dexamethasone 4 mg tablet 20 mg PO .qweek Qty: 60 2RF hydrocodone-acetaminophen 5-325 mg tablet 1 tab PO Q6H PRN (Reason: pain) 7 Days Qty: 30 0RF (DME) walker See Rx Instructions .Route .MEDSUPPLY Qty: 1 0RF Rx Instructions: seated walker with wheels and brakes fluconazole [Diflucan] 100 mg Tablet 100 mg PO DAILY Qty: 90 2RF Rx Instructions: For fungal infection prevention. prochlorperazine maleate [Compazine] 10 mg Tablet 10 mg PO Q4H PRN (Reason: Mild Nausea) Qty: 30 3RF valacyclovir 500 mg Tablet 500 mg PO BID Qty: 60 5RF Rx Instructions: Continue 3 months post treatment for prevention of viral infection. sulfamethoxazole-trimethoprim [Bactrim DS] 800-160 mg Tablet 1 tab PO MOWEFR Qty: 24 5RF Rx Instructions: For infection prevention lorazepam 1 mg Tablet 0.5 - 1 mg PO Q6H PRN (Reason: Severe Nausea) Qty: 30 3RF Discharge Orders: Discharge Order (Routine); Ordered 04/18/22 Ordered By: Darrian Leary Other Ambulatory Orders: DME: Walker (Order) Location: None Selected Ordered By: Darrian Leary Referrals: Nolan Arrieta MD [Hospitalist] - 4-7 days Discharge Diet: As Directed Discharge Activity: Use walker/crutches as instructed and As per PT/OT instructions Patient Instructions: Ciprofloxacin (By mouth), Metronidazole (By mouth), Neutropenia (GEN), Neutropenic Precautions (GEN), Obstipation (GEN), Fall Prevention (GEN), Enteritis (GEN), Neutropenic Diet, Opioid Safety Activity Restrictions/Additional Instructions: Please follow-up with your primary doctor and Dr. Arrieta for reassessment of neutropenia, blood counts. Please maintain neutropenic precautions, neutropenic diet. In case of developing fever, worsening abdominal pain, inability to tolerate oral intake, severe diarrhea, bloody stool, or any other concerning symptoms, please seek medical attention. Please follow-up with your primary doctor and Dr. Arrieta regarding enteritis. Complete antibiotic course with ciprofloxacin and Flagyl. Please continue to work to control constipation. Continue bowel regimen. Add fiber to diet. Please discuss with your cancer doctor, primary doctor consideration of Movantik (although with caution due to possible interaction). Avoid dehydration. Dehydration may contribute to worsened constipation. Discuss with your primary doctor and cancer doctor also regarding poor appetite. You are also started on dronabinol. Discharge Attestations Time Spent in Discharge Care*: greater than 30 min Quality Metrics Clinical Quality Measures [ No reported AMI, CVA or VTE this stay] Coding Level of Care Code Acute Chg FW DC note Diagnoses Constipation K59.00 Enteritis K52.9 Neutropenia D70.9 IgG myeloma C90.00 Physical deconditioning R53.81
[2022-04-18 17:43] VITALS: BP 127/66; PULSE 78; RESP 16; TEMP 36.3; O2SAT 94
== END 2022-04-18 17:30 | disposition home health service (06) ==
LOC: ER 18:01 → MEDSURG 18:48
PROVIDERS: Admitting Provider Internal Medicine; Emergency Provider Emergency Medicine; Visit Provider Internal Medicine
DX: K59.00 Constipation, unspecified (principal); K52.9 Noninfective gastroenteritis and colitis, unspecified; D70.9 Neutropenia, unspecified; C90.00 Multiple myeloma not having achieved remission; R53.81 Other malaise; Z79.82 Long term (current) use of aspirin
CPT/HCPCS: 36415; 45915; 74177; 80053; 84439; 84443; 85025; 87040; 96365; 96367; 96372; 97110; 97161; 97165; 99214; 99285; G0378; J0744; J1650; J2212; Q0167; Q9967; S0030

== ENCOUNTER 2022-04-24 10:00 | Oncology outpatient (recurring) (ONCR) | payer MEDICARE, SELFPAY ==
[2022-04-03] VITALS (8 sets, daily range): BP systolic 139–167; BP diastolic 70–93; PULSE 63–93; RESP 16–18; TEMP 35.6–36.9; O2SAT 95–99
[2022-04-03] MEDS: acetaminophen 325 mg Tablet 650 MG PO (09:59)
[2022-04-03] MEDS: sodium chloride 0.9% 250 ML 50 ML IV (10:00)
[2022-04-03] MEDS: zoledronic acid 4 MG in sodium chloride 0.9% (100 ml) 100 ML 420 MG IV (10:09)
[2022-04-03] MEDS: ondansetron 2 mg/ML SDV 2 mL 8 MG IVP (10:31)
[2022-04-03] MEDS: famotidine 20 mg/2 mL INJ IVP (10:34)
[2022-04-03] MEDS: dexamethasone 20 MG in sodium chloride 0.9% 50 ML 188 MG IV (10:38)
[2022-04-03] MEDS: diphenhydrAMINE 50 mg/mL SDV 1mL 25 MG IVP (10:38)
--- NOTE | 2022-04-03 11:26 | PC.NURSE ---
reviewed sarclisa concentration with clinical pharmacist Shanthi Andre. medication received in 500 ml vs 250 ml volume. titiration rates doubled due to concentration doubling per Katelynn. physician informed. nursing telephone order supervisor informed.
[2022-04-10 09:17] VITALS: BMI 23.8
[2022-04-10 09:39] LABS: Hematocrit 33.2 % (42.0-52.0); Mean Corpuscular HGB Conc 36.1 g/dL (30.0-36.0); Mean Corpuscular Hemoglobin 34.1 pg (28.0-34.0); Mean Corpuscular Volume 94.3 fl (80-94); Mean Platelet Volume 10.9 fL (7.4-10.4); Platelet Count 86 10^3/cmm (130-400); Red Blood Count 3.52 10^6/uL (4.1-5.3); Red Cell Distribution Width 15.2 % (12.1-15.1); White Blood Count 5.1 10^3/uL (4.0-10.0)
[2022-04-10 09:48] LABS: Alanine Aminotransferase 66 U/L (0-41); Albumin Level 3.8 g/dL (3.5-5.2); Alkaline Phosphatase 37 IU/L (40-130); Anion Gap 14.3 (5-19); Aspartate Amino Transferase 19 U/L (0-40); Blood Urea Nitrogen 30 mg/dL (8-23); Carbon Dioxide 17 mmol/L (22-29); Chloride 97 mmol/L (98-107); Globulin 6.5 g/dL (1.3-4.6); Glucose 109 mg/dL (65-115); Osmolality Calculated 265 mOsm/kg (285-295); Potassium 4.3 mmol/L (3.5-5.1); Sodium 124 mmol/L (136-145); Total Bilirubin 1.2 mg/dL (0.15-1.2); Total Protein 10.3 g/dL (6.6-8.7)
[2022-04-10 10:13] LABS: Slide Review Slide Review Perform
[2022-04-10 10:14] LABS: Absolute Segmented Neutrophil 3.7 10/cmm (1.6-7.1); Lymphocytes 13 %; Lymphocytes Absolute 1.2 10^3/cmm (1.2-3.4); Monocytes Absolute 0.2 10^3/cmm (0.1-0.6); Platelet Estimate Decreased (Normal); Segmented Neutrophils 72 %; Total Cells Counted 100 (0-100)
[2022-04-10] MEDS: sodium chloride 0.9% 250 ML 100 ML IV (11:33)
[2022-04-10] MEDS: ondansetron 2 mg/ML SDV 2 mL 8 MG IVP (11:38)
[2022-04-10] MEDS: acetaminophen 325 mg Tablet PO (11:42)
[2022-04-10] MEDS: famotidine 20 mg/2 mL INJ IVP (11:42)
[2022-04-10] MEDS: HYDROcodone-acetaminophen 5-325 mg Tablet 1 TAB PO (11:44)
[2022-04-10] MEDS: dexamethasone 20 MG in sodium chloride 0.9% 50 ML 188 MG IV (11:48)
[2022-04-10] MEDS: diphenhydrAMINE 50 mg/mL SDV 1mL 25 MG IVP (11:48)
[2022-04-10] MEDS: sodium chloride 0.9% 1,000 ML 600 ML IV (12:17)
[2022-04-10 12:30] VITALS: BP 124/71; PULSE 90; RESP 16
[2022-04-10 13:00] VITALS: BP 132/69; PULSE 94; RESP 16
[2022-04-10 13:30] VITALS: BP 129/62; PULSE 69; RESP 16
--- NOTE | 2022-04-10 13:35 | PC.NURSE ---
pharmacist informed prior to start of treatment that sarclisa was prepared in a 500 ml bag again, package insert suggests to be mixed in 250 ml bag and titration rates are based on 250 ml bag. pharmacist suggests titration rates must be doubled to secure infusion times. today is 2nd dose, rates will be as follows for 30 minute intervals: (ml/hr) 100, 200, 400 to complete
[2022-04-10 15:10] VITALS: BP 138/64; PULSE 93; RESP 16; TEMP 36.5; O2SAT 96
[2022-04-17 08:32] VITALS: BP 141/83; PULSE 101; RESP 20; TEMP 36.2; O2SAT 99
[2022-04-17 08:57] LABS: Hematocrit 31.7 % (42.0-52.0); Hemoglobin 11.3 g/dL (11.7-16.6); Lymphocytes # 0.6 10^3/uL (0.8-4.8); Lymphocytes % 37.4 %; Mean Corpuscular HGB Conc 35.6 g/dL (30.0-36.0); Mean Corpuscular Volume 95.5 fl (80-94); Mean Platelet Volume 10.3 fL (7.4-10.4); Monocytes # 0.2 10^3/uL (0.2-0.9); Monocytes % 16.3 %; Neutrophils % 42.9 %; Nucleated Red Blood Cells % 0 %; Platelet Count 132 10^3/cmm (130-400); Red Blood Count 3.32 10^6/uL (4.1-5.3); White Blood Count 1.5 10^3/uL (4.0-10.0)
[2022-04-17 09:13] LABS: Alanine Aminotransferase 56 U/L (0-41); Albumin Level 3.8 g/dL (3.5-5.2); Alkaline Phosphatase 59 IU/L (40-130); Aspartate Amino Transferase 18 U/L (0-40); Blood Urea Nitrogen 25 mg/dL (8-23); Calcium 8.7 mg/dL (8.5-10.5); Carbon Dioxide 22 mmol/L (22-29); Chloride 93 mmol/L (98-107); Globulin 4.8 g/dL (1.3-4.6); Glucose 122 mg/dL (65-115); Osmolality Calculated 264 mOsm/kg (285-295); Sodium 124 mmol/L (136-145); Total Bilirubin 1.1 mg/dL (0.15-1.2); Total Protein 8.6 g/dL (6.6-8.7)
[2022-04-17 09:16] LABS: Anion Gap 13.9 (5-19); Potassium 4.9 mmol/L (3.5-5.1)
[2022-04-17 09:50] LABS: Neutrophils # 0.63 10^3/uL (1.8-7.7); Slide Review Slide Review Perform
[2022-04-24 10:25] LABS: Basophils % 0.5 %; Eosinophils % 0.5 %; Hematocrit 27.8 % (42.0-52.0); Hemoglobin 9.9 g/dL (11.7-16.6); Lymphocytes # 0.7 10^3/uL (0.8-4.8); Lymphocytes % 31.8 %; Mean Corpuscular HGB Conc 35.6 g/dL (30.0-36.0); Mean Corpuscular Hemoglobin 34.1 pg (28.0-34.0); Mean Corpuscular Volume 95.9 fl (80-94); Mean Platelet Volume 9.5 fL (7.4-10.4); Monocytes # 0.6 10^3/uL (0.2-0.9); Monocytes % 27.1 %; Neutrophils % 38.7 %; Nucleated Red Blood Cells % 0 %; Platelet Count 181 10^3/cmm (130-400); Red Cell Distribution Width 15.1 % (12.1-15.1); White Blood Count 2.1 10^3/uL (4.0-10.0)
[2022-04-24 10:34] LABS: Neutrophils # 0.83 10^3/uL (1.8-7.7)
[2022-04-24 10:39] LABS: Alanine Aminotransferase 32 U/L (0-41); Albumin Level 3.2 g/dL (3.5-5.2); Alkaline Phosphatase 87 IU/L (40-130); Blood Urea Nitrogen 20 mg/dL (8-23); Calcium 7.9 mg/dL (8.5-10.5); Carbon Dioxide 21 mmol/L (22-29); Chloride 98 mmol/L (98-107); Globulin 4.3 g/dL (1.3-4.6); Glucose 107 mg/dL (65-115); Osmolality Calculated 269 mOsm/kg (285-295); Sodium 128 mmol/L (136-145); Total Bilirubin 0.6 mg/dL (0.15-1.2); Total Protein 7.5 g/dL (6.6-8.7)
[2022-04-24 10:42] LABS: Anion Gap 13.6 (5-19); Aspartate Amino Transferase 23 U/L (0-40); Potassium 4.6 mmol/L (3.5-5.1)
[2022-04-24] MEDS: acetaminophen 325 mg Tablet 650 MG PO (13:20)
[2022-04-24] MEDS: sodium chloride 0.9% 250 ML 75 ML IV (13:20)
[2022-04-24] MEDS: diphenhydrAMINE 50 mg/mL SDV 1mL 25 MG IVP (13:21)
[2022-04-24] MEDS: ondansetron 2 mg/ML SDV 2 mL 8 MG IVP (13:22)
[2022-04-24] MEDS: famotidine 20 mg/2 mL INJ IVP (13:23)
[2022-04-24] MEDS: dexamethasone 20 MG in sodium chloride 0.9% 50 ML 188 MG IV (13:30)
[2022-04-24 15:57] VITALS: BP 128/66; PULSE 70; TEMP 36.9; O2SAT 98
== END 2022-04-24 23:59 | disposition home or self-care (01) ==
PROVIDERS: Visit Provider Nurse Practitioner Family
DX: Z51.12 Encounter for antineoplastic immunotherapy (principal); C90.00 Multiple myeloma not having achieved remission; C79.51 Secondary malignant neoplasm of bone; Z79.52 Long term (current) use of systemic steroids; Z79.899 Other long term (current) drug therapy
CPT/HCPCS: 36415; 80053; 85007; 85025; 96361; 96367; 96375; 96413; 96415; 99214; 99215; J1100; J1200; J2405; J3489; J3490; J7040; J7050; J9227

== ENCOUNTER 2022-05-22 09:00 | Oncology outpatient (recurring) (ONCR) | payer MEDICARE, SELFPAY ==
[2022-05-01 09:23] LABS: Basophils % 0.7 %; Eosinophils % 0.2 %; Hematocrit 30.8 % (42.0-52.0); Hemoglobin 10.7 g/dL (11.7-16.6); Lymphocytes # 0.7 10^3/uL (0.8-4.8); Lymphocytes % 15.4 %; Mean Corpuscular HGB Conc 34.7 g/dL (30.0-36.0); Mean Corpuscular Hemoglobin 34.7 pg (28.0-34.0); Mean Platelet Volume 9.3 fL (7.4-10.4); Monocytes # 0.3 10^3/uL (0.2-0.9); Monocytes % 6.1 %; Neutrophils # 3.38 10^3/uL (1.8-7.7); Neutrophils % 76.5 %; Nucleated Red Blood Cells % 0 %; Platelet Count 327 10^3/cmm (130-400); Red Blood Count 3.08 10^6/uL (4.1-5.3); Red Cell Distribution Width 16.9 % (12.1-15.1); White Blood Count 4.4 10^3/uL (4.0-10.0)
[2022-05-01 09:32] VITALS: BMI 23.0
[2022-05-01 10:24] LABS: Alanine Aminotransferase 54 U/L (0-41); Albumin Level 3.7 g/dL (3.5-5.2); Alkaline Phosphatase 101 IU/L (40-130); Anion Gap 14.3 (5-19); Aspartate Amino Transferase 26 U/L (0-40); Blood Urea Nitrogen 18 mg/dL (8-23); Calcium 8.6 mg/dL (8.5-10.5); Carbon Dioxide 22 mmol/L (22-29); Chloride 97 mmol/L (98-107); Globulin 3.9 g/dL (1.3-4.6); Glucose 101 mg/dL (65-115); Osmolality Calculated 270 mOsm/kg (285-295); Potassium 4.3 mmol/L (3.5-5.1); Sodium 129 mmol/L (136-145); Total Bilirubin 0.7 mg/dL (0.15-1.2); Total Protein 7.6 g/dL (6.6-8.7)
[2022-05-01] MEDS: diphenhydrAMINE 50 mg/mL SDV 1mL 25 MG IVP (11:12)
[2022-05-01] MEDS: acetaminophen 325 mg Tablet 650 MG PO (11:13)
[2022-05-01] MEDS: sodium chloride 0.9% 250 ML 75 ML IV (11:13)
[2022-05-01] MEDS: dexamethasone 20 MG in sodium chloride 0.9% 50 ML 188 MG IV (11:13)
[2022-05-01] MEDS: famotidine 20 mg/2 mL INJ IVP (11:14)
[2022-05-01] MEDS: ondansetron 2 mg/ML SDV 2 mL 8 MG IVP (11:15)
[2022-05-01 14:00] VITALS: BP 125/65; PULSE 76; RESP 18; TEMP 36.3; O2SAT 99
[2022-05-08 08:40] LABS: Basophils % 0.2 %; Eosinophils # 0.1 10^3/uL (0.0-0.8); Eosinophils % 1.1 %; Hematocrit 31.3 % (42.0-52.0); Hemoglobin 10.8 g/dL (11.7-16.6); Lymphocytes # 0.7 10^3/uL (0.8-4.8); Lymphocytes % 16.6 %; Mean Corpuscular HGB Conc 34.5 g/dL (30.0-36.0); Mean Corpuscular Volume 101.3 fl (80-94); Mean Platelet Volume 9.4 fL (7.4-10.4); Monocytes # 0.4 10^3/uL (0.2-0.9); Monocytes % 9.8 %; Neutrophils # 3.15 10^3/uL (1.8-7.7); Neutrophils % 71.6 %; Nucleated Red Blood Cells % 0 %; Platelet Count 290 10^3/cmm (130-400); Red Blood Count 3.09 10^6/uL (4.1-5.3); Red Cell Distribution Width 18.3 % (12.1-15.1); White Blood Count 4.4 10^3/uL (4.0-10.0)
[2022-05-08 08:54] LABS: Alanine Aminotransferase 80 U/L (0-41); Albumin Level 3.8 g/dL (3.5-5.2); Alkaline Phosphatase 97 IU/L (40-130); Aspartate Amino Transferase 20 U/L (0-40); Blood Urea Nitrogen 12 mg/dL (8-23); Calcium 8.5 mg/dL (8.5-10.5); Carbon Dioxide 23 mmol/L (22-29); Chloride 98 mmol/L (98-107); Globulin 3.9 g/dL (1.3-4.6); Glucose 88 mg/dL (65-115); Immunoglobulin IGA 50 mg/dL (70-400); Immunoglobulin IGG 2150 mg/dL (700-1600); Immunoglobulin IGM 25 mg/dL (40-230); Osmolality Calculated 271 mOsm/kg (285-295); Sodium 131 mmol/L (136-145); Total Bilirubin 0.7 mg/dL (0.15-1.2); Total Protein 7.7 g/dL (6.6-8.7)
[2022-05-08 08:56] LABS: Lactate Dehydrogenase 186 U/L (135-225)
[2022-05-08] MEDS: sodium chloride 0.9% 250 ML 100 ML IV (09:28)
[2022-05-08] MEDS: diphenhydrAMINE 50 mg/mL SDV 1mL 25 MG IVP (09:29)
[2022-05-08] MEDS: famotidine 20 mg/2 mL INJ IVP (09:29)
[2022-05-08] MEDS: ondansetron 2 mg/ML SDV 2 mL 8 MG IVP (09:29)
[2022-05-08] MEDS: acetaminophen 325 mg Tablet 650 MG PO (09:30)
[2022-05-08] MEDS: dexamethasone 20 MG in sodium chloride 0.9% 50 ML 188 MG IV (09:43)
[2022-05-08] MEDS: zoledronic acid 4 MG in sodium chloride 0.9% (100 ml) 100 ML 420 MG IV (10:08)
[2022-05-08 12:18] VITALS: BP 115/72; PULSE 78; TEMP 36.2; O2SAT 97
[2022-05-09 12:27] LABS: PROTEIN, TOTAL 7.3 g/dL (6.1-8.1)
[2022-05-09 13:37] LABS: KAPPA LIGHT CHAIN, FREE, SERUM 151.8 mg/L (3.3-19.4); LAMBDA LIGHT CHAIN, FREE, SERU 2.2 mg/L (5.7-26.3)
[2022-05-09 16:53] LABS: ABNORMAL PROTEIN BAND 1 1.7 g/dL (NONE DETECTED); ALBUMIN 3.7 g/dL (3.8-4.8); ALPHA 1 GLOBULIN 0.3 g/dL (0.2-0.3); ALPHA 2 GLOBULIN 0.9 g/dL (0.5-0.9); BETA 1 GLOBULIN 0.4 g/dL (0.4-0.6); BETA 2 GLOBULIN 0.3 g/dL (0.2-0.5); GAMMA GLOBULIN 1.8 g/dL (0.8-1.7)
[2022-05-22 08:57] VITALS: BMI 23.7
[2022-05-22 09:06] LABS: Hematocrit 31.2 % (42.0-52.0); Hemoglobin 10.8 g/dL (11.7-16.6); Lymphocytes # 0.4 10^3/uL (0.8-4.8); Lymphocytes % 5.3 %; Mean Corpuscular HGB Conc 34.6 g/dL (30.0-36.0); Mean Platelet Volume 9.8 fL (7.4-10.4); Monocytes % 11.7 %; Neutrophils # 6.66 10^3/uL (1.8-7.7); Neutrophils % 82.4 %; Nucleated Red Blood Cells % 0 %; Platelet Count 252 10^3/cmm (130-400); Red Cell Distribution Width 19.9 % (12.1-15.1); White Blood Count 8.1 10^3/uL (4.0-10.0)
[2022-05-22 09:29] LABS: Alanine Aminotransferase 39 U/L (0-41); Albumin Level 4.3 g/dL (3.5-5.2); Alkaline Phosphatase 77 IU/L (40-130); Aspartate Amino Transferase 16 U/L (0-40); Blood Urea Nitrogen 26 mg/dL (8-23); Calcium 9.1 mg/dL (8.5-10.5); Carbon Dioxide 21 mmol/L (22-29); Chloride 96 mmol/L (98-107); Globulin 3.2 g/dL (1.3-4.6); Glucose 113 mg/dL (65-115); Osmolality Calculated 276 mOsm/kg (285-295); Sodium 130 mmol/L (136-145); Total Bilirubin 0.7 mg/dL (0.15-1.2); Total Protein 7.5 g/dL (6.6-8.7)
[2022-05-22 09:45] LABS: Anion Gap 17.4 (5-19); Potassium 4.4 mmol/L (3.5-5.1)
[2022-05-22] MEDS: sodium chloride 0.9% 250 ML 100 ML IV (10:45)
[2022-05-22] MEDS: ondansetron 2 mg/ML SDV 2 mL 8 MG IVP (10:48)
[2022-05-22] MEDS: famotidine 20 mg/2 mL INJ IVP (10:53)
[2022-05-22] MEDS: diphenhydrAMINE 50 mg/mL SDV 1mL 25 MG IVP (10:55)
[2022-05-22] MEDS: acetaminophen 325 mg Tablet 650 MG PO (10:55)
[2022-05-22] MEDS: dexamethasone 20 MG in sodium chloride 0.9% 50 ML 188 MG IV (11:08)
[2022-05-22 13:43] VITALS: BP 134/72; PULSE 64; RESP 16; TEMP 36.4; O2SAT 100
== END 2022-05-25 23:59 | disposition home or self-care (01) ==
PROVIDERS: Internal Medicine Medical Oncology; Visit Provider Nurse Practitioner Family
DX: Z51.11 Encounter for antineoplastic chemotherapy (principal); C90.00 Multiple myeloma not having achieved remission; D70.1 Agranulocytosis secondary to cancer chemotherapy; T45.1X5A Adverse effect of antineoplastic and immunosuppressive drugs, initial encounter; Z79.52 Long term (current) use of systemic steroids
CPT/HCPCS: 80053; 82784; 83615; 83883; 84155; 84165; 85025; 96367; 96375; 96413; 96415; 99214; 99215; J1100; J1200; J2405; J3489; J3490; J7040; J7050; J9227

== ENCOUNTER 2022-06-05 08:51 | Oncology outpatient (recurring) (ONCR) | payer MEDICARE, SELFPAY ==
[2022-06-05 09:30] LABS: Basophils % 0.5 %; Eosinophils # 0.1 10^3/uL (0.0-0.8); Eosinophils % 3.3 %; Hematocrit 31.7 % (42.0-52.0); Hemoglobin 10.8 g/dL (11.7-16.6); Lymphocytes # 0.6 10^3/uL (0.8-4.8); Lymphocytes % 29.9 %; Mean Corpuscular HGB Conc 34.1 g/dL (30.0-36.0); Mean Corpuscular Hemoglobin 37.4 pg (28.0-34.0); Mean Corpuscular Volume 109.7 fl (80-94); Mean Platelet Volume 9.6 fL (7.4-10.4); Monocytes # 0.5 10^3/uL (0.2-0.9); Monocytes % 28.8 %; Nucleated Red Blood Cells % 0 %; Platelet Count 150 10^3/cmm (130-400); Red Blood Count 2.89 10^6/uL (4.1-5.3); Red Cell Distribution Width 20.8 % (12.1-15.1); White Blood Count 1.8 10^3/uL (4.0-10.0)
[2022-06-05 09:32] VITALS: BMI 25.7
[2022-06-05 09:33] LABS: Neutrophils # 0.68 10^3/uL (1.8-7.7)
[2022-06-05 09:54] LABS: Alanine Aminotransferase 28 U/L (0-41); Albumin Level 3.8 g/dL (3.5-5.2); Alkaline Phosphatase 61 IU/L (40-130); Anion Gap 11.3 (5-19); Aspartate Amino Transferase 18 U/L (0-40); Blood Urea Nitrogen 17 mg/dL (8-23); Calcium 8.7 mg/dL (8.5-10.5); Carbon Dioxide 23 mmol/L (22-29); Chloride 105 mmol/L (98-107); Globulin 2.9 g/dL (1.3-4.6); Glucose 102 mg/dL (65-115); Immunoglobulin IGA 50 mg/dL (70-400); Immunoglobulin IGG 1202 mg/dL (700-1600); Immunoglobulin IGM 25 mg/dL (40-230); Osmolality Calculated 282 mOsm/kg (285-295); Potassium 4.3 mmol/L (3.5-5.1); Sodium 135 mmol/L (136-145); Total Bilirubin 0.7 mg/dL (0.15-1.2); Total Protein 6.7 g/dL (6.6-8.7)
[2022-06-06 08:53] LABS: PROTEIN, TOTAL 6.7 g/dL (6.1-8.1)
[2022-06-06 12:48] LABS: ALBUMIN 3.8 g/dL (3.8-4.8); ALPHA 1 GLOBULIN 0.4 g/dL (0.2-0.3); ALPHA 2 GLOBULIN 0.9 g/dL (0.5-0.9); BETA 1 GLOBULIN 0.4 g/dL (0.4-0.6); BETA 2 GLOBULIN 0.3 g/dL (0.2-0.5); GAMMA GLOBULIN 1.1 g/dL (0.8-1.7)
[2022-06-06 13:28] LABS: KAPPA LIGHT CHAIN, FREE, SERUM 78.2 mg/L (3.3-19.4); KAPPA/LAMBDA LIGHT CHAINS FREE 25.23 (0.26-1.65); LAMBDA LIGHT CHAIN, FREE, SERU 3.1 mg/L (5.7-26.3)
== END 2022-06-25 23:59 | disposition home or self-care (01) ==
PROVIDERS: Internal Medicine Medical Oncology; Visit Provider Nurse Practitioner Family
DX: C90.00 Multiple myeloma not having achieved remission; K59.03 Drug induced constipation; D70.1 Agranulocytosis secondary to cancer chemotherapy; T45.1X5A Adverse effect of antineoplastic and immunosuppressive drugs, initial encounter; Z79.52 Long term (current) use of systemic steroids; Z79.899 Other long term (current) drug therapy
CPT/HCPCS: 36415; 80053; 82784; 83883; 84155; 84165; 85025; 99215